=== PATIENT | female | born 1945 | race Caucasian/White ===

== ENCOUNTER 2021-06-28 20:24 | Emergency (ER) | payer MEDICARE, MEDICAID, SELFPAY ==
--- NOTE | ~2021-06-28 | XR_ITS ---
EXAMINATION: PORTABLE CHEST 1 VIEW CLINICAL INFORMATION: fall . COMPARISON: No recent pertinent prior studies are available for comparison. TECHNIQUE: Portable frontal view of the chest was obtained. FINDINGS: The lungs are mildly hypoexpanded with linear basilar atelectasis or consolidation at the lateral left base. No focal effusion, edema, or pneumothorax. Cardiac and mediastinal silhouettes are within normal limits for technique. No acute bony abnormality seen. Degenerative changes in the spine and shoulders. XR/XR chest 1V IMPRESSION: Linear markings at the left lung base more likely due to atelectasis. Early infiltrate considered less likely.
--- NOTE | ~2021-06-28 | CT_ITS ---
EXAMINATION: CT OF THE HEAD AND CERVICAL SPINE WITHOUT CONTRAST CLINICAL INFORMATION: fall, head trauma . COMPARISON: None. TECHNIQUE: Contiguous axial imaging was performed from the skull base to vertex. Soft tissue and bony algorithms were evaluated. Coronal reformatted images were obtained on the technologist's workstation. Following this, multiple serial thin slice helical CT scan images through the cervical spine were obtained. Soft tissue and bony algorithms were evaluated. Coronal and sagittal reformatted images were obtained on the technologist workstation. This CT examination was performed using dose optimization techniques as appropriate, variously including the following: *Automated exposure control *Adjustment of mA and/or kV according to patient size (this includes techniques or standardized protocols for targeted exams where dose is matched to indication/reason for exam; i.e. extremities or head) *Use of iterative reconstruction technique DLP: 1788 mGy cm FINDINGS: Head CT: Images are degraded by motion artifact. The study was repeated and again was degraded by motion artifact. Despite these limitations, the ventricles are normal in size and symmetry. There is no evidence of acute intracranial hemorrhage or acute territorial infarction. Decreased attenuation in the bilateral basal ganglia may represent sequela of small vessel disease or more chronic infarcts. Mild periventricular white matter changes are seen elsewhere. No abnormal mass-effect or midline shift is seen. Bianchi to white matter differentiation is otherwise well preserved. No extra-axial fluid collections are identified. There is no abnormal attenuation within the brain parenchyma. The osseous structures and soft tissues are normal. There is chronic cortical thickening around the maxillary sinuses which both demonstrate air-fluid levels as well as mucosal sinus thickening. Milder mucosal sinus disease seen within the visualized ethmoid air cells and frontal sinuses consistent with sequela of chronic sinus disease. Cervical spine CT: Images of the cervical spine were also degraded by patient motion obscuring fine detail. No prevertebral soft tissue swelling is appreciated. The bones are in normal anatomic alignment with no acute fracture or spondylolisthesis. Multilevel degenerative changes seen with exuberant anterior osteophyte formation. There is loss of disc height from C4 to T1. Sclerotic degenerative changes seen with the posterior elements of the cervical spine at multiple levels bilaterally. Sclerotic degenerative changes at the atlantoaxial joint. Posterior elements are otherwise grossly unremarkable. Visualized airway and lung apices are unremarkable. Visualized thyroid gland unremarkable. CT/CT cervical spine wo con IMPRESSION: Head CT: Examination is limited due to extensive patient motion despite repeating the examination. There are scattered regions of decreased attenuation within the brain parenchyma possibly representing underlying small vessel ischemic disease or sequela of prior infarctions. Acute infarcts would be difficult to assess in this setting. If there is clinical concern, MRI may be helpful however the examination is motion degraded for head CT suggesting an MRI would be extremely motion degraded at this point in time. I do not appreciate any gross hemorrhage, mass lesion, or shift of midline structures on the images that were obtained. C-spine: Also degraded by patient motion. Multilevel degenerative changes throughout the cervical spine but I do not appreciate any obvious acute fracture or spondylolisthesis.
--- NOTE | 2021-06-28 20:31 | ED.FALL ---
HPI - Fall General Chief Complaint: Fall Stated Complaint: fall Source: patient and EMS Mode of arrival: EMS Limitations: no limitations History of Present Illness HPI Narrative: 76-year-old female presents from senior care facility for a fall with head laceration. Patient in a C-collar, able to answer questions appropriately however has dementia per baseline. MD complaint: fall Onset (ago): hour(s) Fall from: standing Place fall occurred: residential[facility] Loss of consciousness: unsure Prolonged down time: no Symptoms prior to fall: none Context: tripped/slipped Location of injury: head and neck Severity: mild Severity scale (1-10): 3 Quality: dull and aching Associated symptoms (after fall): denies Related Data Allergies Allergy/AdvReac Type Severity Reaction Status Date / Time No Known Allergies Allergy Verified 06/28/21 20:32 Review of Systems Review of Systems: Constitutional: No Fever, No Chills ENT/Mouth: No Ear Pain, No Hoarseness, No sore throat Eyes: No Eye Pain, No Swelling, No Redness, No Foreign Body Cardiovascular: No Chest Pain, No SOB Respiratory: No Cough, No Dyspnea Gastrointestinal: No Nausea, No Vomiting, No Diarrhea, No abdominal Pain Genitourinary: No Dysuria, No Hematuria Musculoskeletal: positive scalp pain, No Myalgias, No Joint Swelling Skin: Positive scalp laceration, No rash Neuro: No Weakness, No Numbness, No Paresthesias, No Loss of Consciousness, No Dizziness, No Headache Psych: No Anxiety/Panic, No Depression Heme/Lymph: no easy bruising, no Lymphadenopathy Endocrine: No Polyuria, No Polydipsia Yes all other systems are reviewed and are negative [facility] Past Medical History Attestation statement: The following information was validated with the patient. Source: old records reviewed Social History Social History Advance Directives: No Advance Directives Information Provided: No Physical Exam Vital Signs: Vital Signs: Last Vital Signs Temp 98.0 F 06/28/21 21:06 Pulse 104 H 06/28/21 21:06 Resp 18 06/28/21 21:06 BP 167/92 H 06/28/21 21:06 Pulse Ox 92 06/28/21 21:06 BMI result Body Mass Index 34.3 Appearance: Alert. Oriented to self situation and place. No acute distress. Eyes: Pupils equal, round and reactive to light. EOMI. Sclerae nonicteric. ENT: Pharynx normal. Moist mucous membranes. Neck: Normal inspection. Neck supple. No vertebral tenderness or step-offs noted. CVS: Normal heart rate and rhythm. Pulses normal. Respiratory: No respiratory distress. Breath sounds normal. Abdomen: Soft and nontender. Skin: 3 cm laceration to the right occiput. Skin warm and dry. Normal skin color. Normal skin turgor. Extremities: No lower extremity edema. Moves all extremities against resistance. Neuro: No motor deficit. No sensory deficit. Cranial nerves 2-12 intact. Course Course Course Narrative: 76-year-old female presents via EMS in a C-collar after fall at senior care facility. Reports scalp pain, has a 3 cm lack. Patient has significant anxiety per baseline. Will order CT scan of head and neck. Physical exam is negative, no tenderness to palpation to all joints. No vertebral tenderness or step-offs noted. No chest wall pain on palpation, no abdominal tenderness. Moves all extremities against resistance. Patient does have dementia per baseline, is able to answer questions about herself and situation. Does not know the date or the president. 21:30 CT scan of head neck are negative for acute findings requiring emergent intervention. Head CT is limited due to movement however there is not any gross hemorrhage mass lesions or midline shift. C-collar removed. Laceration to the occiput irrigated with copious amounts of normal saline. Applied 7 samira. Patient tolerated procedure well however was upset with some of the pain. Patient was easily consoled. 22:15 x-ray of the chest negative for acute findings requiring emergent intervention. EKG sinus tach, tropes are negative. Will return patient to senior care facility. MDM - Fall Differential Diagnosis Differential diagnosis: Likely fracture and concussion without loss of consciousness Medical Records Attestation: I reviewed the patient's medical records. Lab Data Attestation: I reviewed the patient's lab results. Result diagrams: 06/28/21 21:13 06/28/21 21:13 Labs: Lab Results 06/28/21 06/28/21 06/28/21 Range/Units 21:13 21:13 21:13 WBC 7.7 (4.8-10.8) X10*3/uL RBC 4.12 L (4.20-5.50) X10*6/uL Hgb 12.8 (12.0-16.0) g/dl Hct 38.6 (37.0-47.0) % MCV 93.7 (80.0-98.0) fL MCH 31.1 (27.0-33.0) pg MCHC 33.2 (31.0-35.0) g/dl RDW 12.5 (11.0-16.0) % Plt Count 186 (160-400) X10*3/uL MPV 8.9 L (9.4-12.3) fL Immature Gran % (Auto) 0.3 (0.0-0.4) % Neut % (Auto) 64.8 (45-73) % Lymph % (Auto) 23.9 (20-40) % [place] % (Auto) 8.9 (2-11) % Eos % (Auto) 1.6 (0-4) % Baso % (Auto) 0.5 (0-2) % Lymph # (Auto) 1.8 (1.2-4.9) X10*3/uL [place] # (Auto) 0.7 (0.1-1.2) X10*3/uL Eos # (Auto) 0.1 (0.0-0.4) X10*3/uL Baso # (Auto) 0.0 (0.0-0.2) X10*3/uL Abs Immat Gran (auto) 0.02 (0.00-0.03) X10*3/uL Absolute Neuts (auto) 5.0 (2.0-8.3) x10*3/uL Absolute Nucleated RBC 0.000 (0.0-0.012) X10*3/uL Nucleated RBC % (auto) 0.0 (0.0-0.2) /100WBC Sodium 129 L (135-145) mmol/L Potassium 4.6 (3.3-5.1) mmol/L Chloride 98 (96-108) mmol/L Carbon Dioxide 22 (22-29) mmol/L Anion Gap 14 (12-20) BUN 19 H (9-16) mg/dL Creatinine 0.99 (0.5-1.4) mg/dL Estim Creat Clear Calc 44.6 Estimated GFR 55 Random Glucose 112 (60-115) mg/dL Calcium 8.3 L (8.4-10.2) mg/dL Troponin I High Sens < 3.5 (<3.5-17.0) ng/L Imaging Data CT head neck: Attestation: I personally reviewed and interpreted this imaging study as follows: Radiologist's impression: EXAMINATION: CT OF THE HEAD AND CERVICAL SPINE WITHOUT CONTRAST CLINICAL INFORMATION: fall, head trauma . COMPARISON: None. TECHNIQUE: Contiguous axial imaging was performed from the skull base to vertex. Soft tissue and bony algorithms were evaluated. Coronal reformatted images were obtained on the technologist's workstation. Following this, multiple serial thin slice helical CT scan images through the cervical spine were obtained. Soft tissue and bony algorithms were evaluated. Coronal and sagittal reformatted images were obtained on the technologist workstation. This CT examination was performed using dose optimization techniques as appropriate, variously including the following: *Automated exposure control *Adjustment of mA and/or kV according to patient size (this includes techniques or standardized protocols for targeted exams where dose is matched to indication/reason for exam; i.e. extremities or head) *Use of iterative reconstruction technique DLP: 1788 mGy cm FINDINGS: Head CT: Images are degraded by motion artifact. The study was repeated and again was degraded by motion artifact. Despite these limitations, the ventricles are normal in size and symmetry. There is no evidence of acute intracranial hemorrhage or acute territorial infarction. Decreased attenuation in the bilateral basal ganglia may represent sequela of small vessel disease or more chronic infarcts. Mild periventricular white matter changes are seen elsewhere. No abnormal mass-effect or midline shift is seen. Bianchi to white matter differentiation is otherwise well preserved. No extra-axial fluid collections are identified. There is no abnormal attenuation within the brain parenchyma. The osseous structures and soft tissues are normal. There is chronic cortical thickening around the maxillary sinuses which both demonstrate air-fluid levels as well as mucosal sinus thickening. Milder mucosal sinus disease seen within the visualized ethmoid air cells and frontal sinuses consistent with sequela of chronic sinus disease. Cervical spine CT: Images of the cervical spine were also degraded by patient motion obscuring fine detail. No prevertebral soft tissue swelling is appreciated. The bones are in normal anatomic alignment with no acute fracture or spondylolisthesis. Multilevel degenerative changes seen with exuberant anterior osteophyte formation. There is loss of disc height from C4 to T1. Sclerotic degenerative changes seen with the posterior elements of the cervical spine at multiple levels bilaterally. Sclerotic degenerative changes at the atlantoaxial joint. Posterior elements are otherwise grossly unremarkable. Visualized airway and lung apices are unremarkable. Visualized thyroid gland unremarkable. ? CT/CT cervical spine wo con IMPRESSION: Head CT: Examination is limited due to extensive patient motion despite repeating the examination. There are scattered regions of decreased attenuation within the brain parenchyma possibly representing underlying small vessel ischemic disease or sequela of prior infarctions. Acute infarcts would be difficult to assess in this setting. If there is clinical concern, MRI may be helpful however the examination is motion degraded for head CT suggesting an MRI would be extremely motion degraded at this point in time. I do not appreciate any gross hemorrhage, mass lesion, or shift of midline structures on the images that were obtained. ? C-spine: Also degraded by patient motion. Multilevel degenerative changes throughout the cervical spine but I do not appreciate any obvious acute fracture or spondylolisthesis. Chest x-ray: Attestation: I personally reviewed and interpreted this imaging study as follows: Radiologist's impression: EXAMINATION: PORTABLE CHEST 1 VIEW CLINICAL INFORMATION: fall . COMPARISON: No recent pertinent prior studies are available for comparison. TECHNIQUE: Portable frontal view of the chest was obtained. FINDINGS: The lungs are mildly hypoexpanded with linear basilar atelectasis or consolidation at the lateral left base. No focal? effusion, edema, or pneumothorax. Cardiac and mediastinal silhouettes are within normal limits for technique. No acute bony abnormality seen. Degenerative changes in the spine and shoulders. XR/XR chest 1V IMPRESSION: Linear markings at the left lung base more likely due to atelectasis. Early infiltrate considered less likely. ? ECG Data Attestation: I personally reviewed and interpreted this ECG as follows: ECG interpretation date: 06/28/21 ECG interpretation time: 20:51 Prior ECG tracings: available for review Interpretation: Vent. rate 107 BPM CO interval 124 ms QRS duration 76 ms QT/QTc 324/432 ms P-R-T axes 70 58 75 Sinus tachycardia Otherwise normal ECG No previous ECGs available 28-JUN-2021 20:51:14 Discharge Plan Discharge Clinical Impression: Fall, Concussion, Laceration of scalp Patient Disposition: Home, Self-Care Instructions: Laceration (ED), Concussion (ED), Post Concussion Syndrome (ED) Additional Instructions: You were evaluated for injury sustained from a fall. CT scan of head and neck are negative for acute findings requiring emergent intervention. Chest x-ray is negative. We updated her Tdap vaccine today. We placed 7 samira to the laceration on the back of her head. Please return or have a medical professional remove the samira in 10 days. Thank you for choosing this emergency department for evaluation. Please follow-up with primary care physician as needed. Return to the emergency department for any new, concerning, or worsening symptoms. Interventions: ED Discharge Assessment Last Done: 06/29/21 00:17 Discharge Date/Time: 06/29/21 00:20
[2021-06-28 20:33] VITALS: BP 160/80; BP 163/101; PULSE 111; PULSE 125; RESP 18; TEMP 36.6; O2SAT 95; O2SAT 98; BMI 34.3
--- NOTE | 2021-06-28 20:34 | ECG_ITS ---
Test Reason : fall Blood Pressure : / mmHG Vent. Rate : 107 BPM Atrial Rate : 107 BPM P-R Int : 124 ms QRS Dur : 076 ms QT Int : 324 ms P-R-T Axes : 070 058 075 degrees QTc Int : 432 ms Sinus tachycardia Otherwise normal ECG No previous ECGs available Referred By: Sparkle Britt Electronically Signed By:RAMON WHITE
[2021-06-28 21:06] VITALS: BP 167/92; PULSE 104; RESP 18; TEMP 36.7; O2SAT 92
[2021-06-28 21:18] LABS: MANUAL DIFF FLAG NO
[2021-06-28 21:20] LABS: Basophils Percent Auto 0.5 % (0-2); Eosinophils Absolute Auto 0.1 X10*3/uL (0.0-0.4); Eosinophils Percent Auto 1.6 % (0-4); Hematocrit 38.6 % (37.0-47.0); Hemoglobin 12.8 g/dl (12.0-16.0); Imm Gran Abs Auto 0.02 X10*3/uL (0.00-0.03); Imm Gran Pct Auto 0.3 % (0.0-0.4); Lymphocytes Absolute Auto 1.8 X10*3/uL (1.2-4.9); Lymphocytes Percent Auto 23.9 % (20-40); Mean Corpuscular HGB Conc 33.2 g/dl (31.0-35.0); Mean Corpuscular Hemoglobin 31.1 pg (27.0-33.0); Mean Corpuscular Volume 93.7 fL (80.0-98.0); Mean Platelet Volume 8.9 fL (9.4-12.3); Monocytes Absolute Auto 0.7 X10*3/uL (0.1-1.2); Monocytes Percent Auto 8.9 % (2-11); Neutrophils Percent Auto 64.8 % (45-73); Platelet Count 186 X10*3/uL (160-400); Red Blood Count 4.12 X10*6/uL (4.20-5.50); Red Cell Distribution Width 12.5 % (11.0-16.0); White Blood Count 7.7 X10*3/uL (4.8-10.8)
[2021-06-28 21:36] LABS: Anion Gap 14 (12-20); Blood Urea Nitrogen 19 mg/dL (9-16); Calcium 8.3 mg/dL (8.4-10.2); Carbon Dioxide 22 mmol/L (22-29); Chloride 98 mmol/L (96-108); Creatinine Clr Calc Pharmacy 44.6; Estimated Glomerular Filt Rate 55; Glucose Random 112 mg/dL (60-115); Potassium 4.6 mmol/L (3.3-5.1); Sodium 129 mmol/L (135-145)
[2021-06-28 21:40] LABS: Troponin-I High Sensitivity < 3.5 ng/L (<3.5-17.0)
[2021-06-28] MEDS: Diphth,Pertus(ACell),Tet Adult 0.5 ML SYRINGE IM (22:47)
--- NOTE | 2021-06-28 22:57 | PC.NURSE ---
medicated per mar and pt Sebas radhika notified.
== END 2021-06-29 00:20 | disposition home or self-care (01) ==
PROVIDERS: Nurse Practitioner Family; Emergency Provider Emergency Medicine Emergency Medical Services; PCP Family Medicine
DX: S01.01XA Laceration without foreign body of scalp, initial encounter (principal); S06.0X0A Concussion without loss of consciousness, initial encounter; G44.309 Post-traumatic headache, unspecified, not intractable; M54.2 Cervicalgia; F03.90 Unspecified dementia, unspecified severity, without behavioral disturbance, psychotic disturbance, mood disturbance, and anxiety; W01.0XXA Fall on same level from slipping, tripping and stumbling without subsequent striking against object, initial encounter; Y93.9 Activity, unspecified; Y92.129 Unspecified place in nursing home as the place of occurrence of the external cause; Y99.9 Unspecified external cause status; Z79.899 Other long term (current) drug therapy
CPT/HCPCS: 12001; 36415; 70450; 71045; 72125; 80048; 84484; 85025; 90471; 90715; 93005; 99283

== ENCOUNTER 2022-03-31 14:48 | Observation (INO) | payer MEDICARE, MEDICAID, SELFPAY ==
--- NOTE | ~2022-03-31 | CT_ITS ---
EXAMINATION: CT ANGIOGRAM OF THE HEAD CT ANGIOGRAM OF THE NECK CLINICAL INFORMATION: Slurred speech. COMPARISON: CT scan of the head earlier at 03/31/2022. X-rays of the chest 03/31/2022 and 06/28/2021. TECHNIQUE: Test bolus series followed by intravenous administration 70 mL of Omnipaque 350. Helical imaging was performed in the axial plane from the mediastinum to the skull vertex. A delayed post contrast CT scan of the head was obtained. The degree of stenosis is based off NASCET criteria. The data was processed at the sand technologist workstation for generation of MIP images. Three-dimensional volume rendered reformatted images were also generated at an offline 3-D workstation. This CT examination was performed using dose optimization techniques as appropriate, variously including the following: *Automated exposure control *Adjustment of mA and/or kV according to patient size (this includes techniques or standardized protocols for targeted exams where dose is matched to indication/reason for exam; i.e. extremities or head) *Use of iterative reconstruction technique DLP: 1481 mGy-cm. FINDINGS: CT Head: There is no evidence of acute intracranial hemorrhage or territorial infarction. No abnormal mass-effect or midline shift is seen. Bianchi to white matter differentiation is well preserved. No extra-axial fluid collections are identified. There is no abnormal parenchymal enhancement. There is mild commensurate prominence of the ventricles and sulci consistent with diffuse volume loss. There are areas of low attenuation in the periventricular and subcortical white matter, most consistent with chronic microvascular ischemic changes, and there are chronic lacunar infarcts in the basal ganglia. There are no acute osseous findings. There is hyperostosis frontalis interna. The study redemonstrates a 0.7 cm area of increased attenuation along the falx superiorly, predominantly on the left, which was demonstrated on prior imaging (image 38/55, series 16). It may be consistent with a small meningioma. The soft tissues are unremarkable. There is pansinus mucoperiosteal thickening which is most prominent in the left maxillary and ethmoid sinuses. There is a fluid level in the right maxillary sinus, and there is marked sclerosis and thickening of the left maxillary sinus tavarez. There are sequelae of prior left-sided paranasal sinus surgery. CTA Neck: There is an aberrant right subclavian artery which runs posterior to the trachea and the esophagus. There are mild atheromatous calcifications at the origins of the subclavian arteries bilaterally. The common carotid arteries are patent bilaterally. There is no significant atheromatous calcification at the carotid bifurcations and no flow-limiting stenoses. The cervical internal carotid arteries are patent bilaterally. The origins of both vertebral arteries are well seen and appear normal. Both vertebral arteries are widely patent and demonstrate good opacification throughout their cervical course. The right vertebral artery is slightly dominant. Nonvascular: There is a 0.6 cm calcified nodule laterally in the left upper lobe. The thyroid gland has markedly heterogenous attenuation, and there is a heterogenous nodule towards the upper pole of the right lobe which measures 1.6 cm. There is no cervical lymphadenopathy. The patient is edentulous in the mandible and the maxilla; there is a small residual root with a periapical lucency in the right mid mandibular body with surrounding sclerosis. There are multilevel spondylotic and facet arthropathic changes. CTA Head: Evaluation is markedly degraded by extensive patient motion artifact involving the superolateral superolateral structures. In the anterior circulation, the distal internal carotid arteries within the neck appear normal. There are mild atheromatous calcifications of the cavernous internal carotid arteries bilaterally, but the vessels are patent. The middle and anterior cerebral arteries bilaterally demonstrate normal caliber with no evidence of focal stenosis, aneurysm or vascular malformation. There is normal arborization of the middle cerebral artery branches. The anterior communicating artery is normal. In the posterior circulation, the right vertebral artery is dominant. The left vertebral artery ends primarily in the PICA. There is slight irregular contour of the proximal intradural right vertebral artery without focal stenosis. The basilar artery appears normal. The posterior cerebral arteries have normal caliber. The venous sinuses opacify normally. CT/CT angio head neck stroke IMPRESSION: CT head and neck: 1. There are no acute bleeds or territorial infarcts. 2. There is diffuse volume loss and there are chronic microvascular ischemic changes. 3. There is an aberrant right subclavian artery. 4. There is extensive paranasal sinus disease. 5. The thyroid gland has markedly heterogenous attenuation with a 1.6 cm heterogenous nodule in the right lobe. Recommend clinical and ultrasound correlation. 6. There is an area focal calcification along the superior falx, which may be consistent with a small meningioma. 7. There is a granuloma in the left upper lobe, demonstrated on prior imaging. CTA head and neck: 1. Evaluation of the upper intracranial vascular structures is suboptimal due to severe patient motion artifact. 2. There are no significant atheromatous changes in the neck vasculature and no flow-limiting stenoses are demonstrated. 3. Intracranially there are no focal stenoses, aneurysms or vascular malformations. This critical result was discussed with Jennifer Valverde by telephone on 03/31/2022 at 4:05 PM and it was ascertained that the content and urgency of the report was understood at the time of direct communication.
--- NOTE | ~2022-03-31 | CT_ITS ---
EXAMINATION: CT HEAD WITHOUT CONTRAST (STROKE PROTOCOL) CLINICAL INFORMATION: Stroke protocol. Acute slurred speech. Expressive aphasia. COMPARISON: Noncontrast head CT 06/28/2021 TECHNIQUE: Contiguous axial imaging was performed from the skull base to vertex without intravenous administration of contrast. Additional 2-D coronal and sagittal reformatted images are generated on the CT workstation and uploaded to PACS. This CT examination was performed using dose optimization techniques as appropriate, variously including the following: *Automated exposure control *Adjustment of mA and/or kV according to patient size (this includes techniques or standardized protocols for targeted exams where dose is matched to indication/reason for exam; i.e. extremities or head) *Use of iterative reconstruction technique DLP: 650 mGy-cm FINDINGS: There is no intracranial hemorrhage, hematoma, or extra-axial fluid collection. The ventricles are normal in size. There is no hydrocephalus, edema, or mass effect. There is mild accentuation of the cortical sulci and fissures and cisterns consistent with some atrophic changes similar to prior study. Again, periventricular gliosis is present as well as some small infarcts in the bilateral external capsules similar to prior exam. There is basal ganglia calcification on the left or vascular calcification again present. Subtle increased attenuation left parasagittal vertex 0.5 cm, series 5/ and coronal image 47, is not of acute clinical significance, in retrospect present on prior exam, possibly small angioma. There is no visible acute territorial infarct or mass lesion. No focal dense vessel sign. The calvarium appears intact. There is no pneumocephalus or orbital emphysema. There is bilateral hyperostosis frontalis. Scattered mucosal thickening is again seen ethmoid air cells and circumferential mucosal thickening left maxillary sinus. There is mucosal thickening and/or fluid again noted right maxillary sinus. Mild chronic thickening maxillary sinus tavarez likely related to chronic sinus condition. The middle ears and mastoids are clear. Results called and discussed with Dr. Valverde [address]/CT head for stroke IMPRESSION: 1. No intracranial hemorrhage, hematoma, or mass effect. 2. Chronic periventricular gliosis and small bilateral external capsule lacunar infarcts similar to prior exam 06/28/2021. Probable 5 mm angioma left vertex similar to prior exam. 3. Chronic sinus mucosal thickening.
--- NOTE | ~2022-03-31 | XR_ITS ---
EXAMINATION: XR CHEST CLINICAL INFORMATION: Stroke COMPARISON: Chest x-ray 06/28/2021 TECHNIQUE: Frontal view of the chest was obtained. FINDINGS: Minimal streaky bibasilar atelectasis. Slightly indistinct left costophrenic sulcus suggesting either trace pleural effusion versus mild pleural thickening, similar to prior. No right pleural effusion. No pneumothorax. Cardiomediastinal silhouette is within normal limits. No evidence of pulmonary edema. No acute osseous injury. XR/XR chest 1V IMPRESSION: 1. Mild bibasilar atelectasis. 2. Trace left pleural effusion versus mild pleural thickening, similar to prior.
--- NOTE | 2022-03-31 14:57 | ECG_ITS ---
Test Reason : ?STROKE Blood Pressure : / mmHG Vent. Rate : 106 BPM Atrial Rate : 106 BPM P-R Int : 122 ms QRS Dur : 072 ms QT Int : 346 ms P-R-T Axes : 073 052 073 degrees QTc Int : 459 ms Sinus tachycardia Otherwise normal ECG When compared with ECG of 28-JUN-2021 20:51, No significant change was found Referred By: Jennifer Valverde Electronically Signed By:RAMON WHITE
--- NOTE | 2022-03-31 15:01 | ED.NEUROSD ---
HPI - Neuro Symptoms/Deficit General Chief Complaint: Altered Mental Status Stated Complaint: slurred speech per EMS Time Seen by Provider: 03/31/22 14:57 Source: EMS, RN notes reviewed and old records reviewed Mode of arrival: EMS Limitations: no limitations History of Present Illness HPI Narrative: 76-year-old female brought in by ambulance for a concern of stroke. Patient is a senior living resident with known history of dementia last known healthy was 23:00 last night found by the staff at the senior living this morning with slurred speech unable to express herself, otherwise no other neurological deficit. Rapid neuro screen Patient is regarding examiner but with apparent expressive aphasia answer all question with no weakness has noticed. Patient came in with MOLST form as a DNR/DNI. Reviewing patient's senior living report patient is not taking anticoagulation. Related Data Home Medications Medication Instructions Recorded Confirmed acetaminophen 325 mg tablet 650 mg PO BID 03/31/22 03/31/22 alendronate 70 mg tablet 1 tab PO TU 03/31/22 03/31/22 ascorbic acid (vitamin C) 500 mg 500 mg PO DAILY 03/31/22 03/31/22 tablet benztropine 1 mg tablet 1 tab PO DAILY 03/31/22 03/31/22 calcium carbonate 600 mg-vitamin 1 tab PO DAILY 03/31/22 03/31/22 D3 10 mcg (400 unit) tablet (Calcium 600 + D(3)) ferrous gluconate 324 mg (37.5 mg 324 mg PO DAILY 03/31/22 03/31/22 iron) tablet fluticasone 500 mcg-salmeterol 50 1 puff inhalation BID 03/31/22 03/31/22 mcg/dose blistr powdr for inhalation haloperidol 10 mg tablet 1 tab PO BEDTIME 03/31/22 03/31/22 magnesium oxide 400 mg PO BEDTIME 03/31/22 03/31/22 pantoprazole 40 mg tablet,delayed 1 tab PO BID 03/31/22 03/31/22 release polyethylene glycol 3350 17 gram 17 g PO DAILY 03/31/22 03/31/22 oral powder packet quetiapine 100 mg tablet (Seroquel) 100 mg PO BEDTIME 03/31/22 03/31/22 quetiapine 400 mg tablet 1 tab PO BEDTIME 03/31/22 03/31/22 sennosides 8.6 mg-docusate sodium 2 tab-cap PO TID@0800,1400,1800 03/31/22 03/31/22 50 mg tablet (Senna Plus) tiotropium bromide 18 mcg capsule 1 cap inhalation DAILY 03/31/22 03/31/22 with inhalation device (Spiriva with HandiHaler) trazodone 100 mg tablet 1 tab PO BEDTIME 03/31/22 03/31/22 Allergies Allergy/AdvReac Type Severity Reaction Status Date / Time No Known Allergies Allergy Verified 06/28/21 20:32 Review of Systems Review of Systems: Yes Unobtainable due to mental status [facility] Social History Social History Alcohol intake: never Smoked in Last 30 Days: No Use of substances other than those prescribed or required for medical reasons: No Advance Directives: Yes Advance Directives on File: Yes Advance Directives Date on File: 06/28/21 Physical Exam Vital Signs: Vital Signs: Last Vital Signs Temp 98.2 F 03/31/22 15:52 Pulse 105 H 03/31/22 15:52 Resp 17 03/31/22 15:52 BP 148/81 H 03/31/22 15:52 Pulse Ox 100 03/31/22 15:52 O2 Del Method 03/31/22 15:52 BMI result Body Mass Index 28.9 Vital signs have been reviewed as appeared to be correct. Blood pressure normal. Heart rate normal. Respiration rate normal. Temperature normal. Oxygen saturation normal. Appearance: No acute distress. Head: Normal external exam. Normocephalic. Atraumatic. No Carlson signs noted. No raccoon eyes noted Eyes: PERRLA. EOMI. Conjunctiva and sclera normal. Eyelids normal. ENT: TM's Normal. Pharynx normal. Uvula midline. Moist mucous membranes. No trismus noted. No drooling noted. No muffled voice noted. Neck: Normal inspection. Neck supple. FROM. No adenopathy. Thyroid Normal. No meningeal signs. No neck mass noted. CVS: Normal heart rate and rhythm. Heart sound normal. No murmurs noted. Pulses normal throughout. Respiratory: No respiratory distress. Painless inspiration. Breath sounds normal. No wheezes/rales/rhonchi noted. Chest nontender. No accessory muscle usage noted or decreased air movement noted. Abdomen: Soft and nontender. Bowel sounds normal in all 4 quadrants. No distention noted. No organomegaly noted. No visible injury noted. Back: No CVA tenderness. Full range of motion noted. Skin: Skin warm and dry. Normal skin color. Normal skin turgor. No rashes/lesions/lacerations noted. Extremities: No lower extremity edema. Extremities exhibit normal range of motion. Extremities nontender. Neuro: Patient answer all question with no, regarding examiner. Cranial nerve exam: II-XII are grossly intact No motor deficit. No sensory deficit. Reflexes normal. Course Course Course Narrative: 1. Slurred speech likely cerebral stroke unknown onset of symptoms therefore patient is not a candidate for IV thrombolysis, will administer p.o. aspirin in the ED. 2. Moderate hyperkalemia with no EKG changes, hemodynamically stable will recheck potassium. Medications Administered Discontinued Medications Generic Name Dose Route Start Last Admin Trade Name Freq PRN Reason Stop Dose Admin Iohexol 100 ml 03/31/22 15:33 03/31/22 15:34 Iohexol 350 Mg/Ml 100 Ml Infus..Btl IV 03/31/22 15:34 70 ml ONCE ONE Administration Medical Decision Making Differential Diagnosis Differential Diagnoses: The differential diagnosis associated with the presentation includes (Slurred speech/CVA/metabolic encephalopathy/progressive dementia) Admission/Observation Consideration of admission/observation: Escalation of care including admission/observation considered Consult Healthcare Provider Management of the patient was discussed with: Hospitalist (Omari) Lab Data MDM Lab Attestation statement: I reviewed the patient's lab results. Result Diagrams: 03/31/22 16:16 03/31/22 16:16 Labs: Lab Results 03/31/22 03/31/22 03/31/22 Range/Units 15:32 15:33 16:16 WBC 5.7 (4.8-10.8) X10*3/uL RBC 4.66 (4.20-5.50) X10*6/uL Hgb 14.2 (12.0-16.0) g/dl Hct 43.2 (37.0-47.0) % MCV 92.7 (80.0-98.0) fL MCH 30.5 (27.0-33.0) pg MCHC 32.9 (31.0-35.0) g/dl RDW 12.1 (11.0-16.0) % Plt Count 266 D (160-400) X10*3/uL MPV 8.7 L (9.4-12.3) fL Immature Gran % (Auto) 0.3 (0.0-0.4) % Neut % (Auto) 49.6 (45-73) % Lymph % (Auto) 33.9 (20-40) % [place] % (Auto) 12.6 H (2-11) % Eos % (Auto) 2.4 (0-4) % Baso % (Auto) 1.2 (0-2) % Lymph # (Auto) 1.9 (1.2-4.9) X10*3/uL [place] # (Auto) 0.7 (0.1-1.2) X10*3/uL Eos # (Auto) 0.1 (0.0-0.4) X10*3/uL Baso # (Auto) 0.1 (0.0-0.2) X10*3/uL Abs Immat Gran (auto) 0.02 (0.00-0.03) X10*3/uL Absolute Neuts (auto) 2.8 (2.0-8.3) x10*3/uL Absolute Nucleated RBC 0.000 (0.0-0.012) X10*3/uL Nucleated RBC % (auto) 0.0 (0.0-0.2) /100WBC PT (10.0-13.1) SEC Whole Blood PT 11.6 (11.1-13.5) sec INR (0.9-1.1) Whole Blood INR 1.0 (0.9-1.1) APTT (26.0-36.4) SEC Sodium (135-145) mmol/L Potassium (3.3-5.1) mmol/L Chloride (96-108) mmol/L Carbon Dioxide (22-29) mmol/L Anion Gap (12-20) BUN (9-16) mg/dL Creatinine (0.5-1.4) mg/dL Estim Creat Clear Calc Estimated GFR POC Glucose 93 (60-115) mg/dL Random Glucose (60-115) mg/dL Calcium (8.4-10.2) mg/dL Total Creatine Kinase (26-140) U/L Troponin I High Sens (<3.5-17.0) ng/L 03/31/22 03/31/22 03/31/22 Range/Units 16:16 16:16 16:16 WBC (4.8-10.8) X10*3/uL RBC (4.20-5.50) X10*6/uL Hgb (12.0-16.0) g/dl Hct (37.0-47.0) % MCV (80.0-98.0) fL MCH (27.0-33.0) pg MCHC (31.0-35.0) g/dl RDW (11.0-16.0) % Plt Count (160-400) X10*3/uL MPV (9.4-12.3) fL Immature Gran % (Auto) (0.0-0.4) % Neut % (Auto) (45-73) % Lymph % (Auto) (20-40) % [place] % (Auto) (2-11) % Eos % (Auto) (0-4) % Baso % (Auto) (0-2) % Lymph # (Auto) (1.2-4.9) X10*3/uL [place] # (Auto) (0.1-1.2) X10*3/uL Eos # (Auto) (0.0-0.4) X10*3/uL Baso # (Auto) (0.0-0.2) X10*3/uL Abs Immat Gran (auto) (0.00-0.03) X10*3/uL Absolute Neuts (auto) (2.0-8.3) x10*3/uL Absolute Nucleated RBC (0.0-0.012) X10*3/uL Nucleated RBC % (auto) (0.0-0.2) /100WBC PT 10.6 (10.0-13.1) SEC Whole Blood PT (11.1-13.5) sec INR 0.9 (0.9-1.1) Whole Blood INR (0.9-1.1) APTT 31.2 (26.0-36.4) SEC Sodium 134 L (135-145) mmol/L Potassium 5.6 H D (3.3-5.1) mmol/L Chloride 97 (96-108) mmol/L Carbon Dioxide 28 (22-29) mmol/L Anion Gap 15 (12-20) BUN 13 (9-16) mg/dL Creatinine 0.85 (0.5-1.4) mg/dL Estim Creat Clear Calc 53.8 Estimated GFR > 60 POC Glucose (60-115) mg/dL Random Glucose 94 (60-115) mg/dL Calcium 9.4 D (8.4-10.2) mg/dL Total Creatine Kinase 24 L (26-140) U/L Troponin I High Sens 16.2 D (<3.5-17.0) ng/L Independent Interpretation I performed an independent interpretation of an: EKG (Sinus tachycardia 106 beats per minute, normal intervals, no ST-T changes.), Plain X-Ray (No acute intrathoracic pathology.) and CT Scan (No acute intracranial pathology.) Radiology Impression Discussion of test interpretation with radiology: I have reviewed the radiologist's reading. Independent Historian Clinical information obtained from an independent historian. History obtained from or confirmed by: EMS Patient baseline with dementia. NIH Stroke Scale Internal: Initial- Upon Arrival Level of Consciousness: Alert Level of Consciousness Questions: Answers neither question correctly Level of Consciousness Commands: Performs neither task correctly Best Gaze: Normal Visual: No visual loss Facial Palsy: Normal Motor Arm (Right): No drift Motor Arm (Left): No drift Motor Leg (Right): No drift Motor Leg (Left): No drift Limb Ataxia: Absent Sensory: Normal Best Language: Severe aphasia Dysarthia: Normal Extinction and Inattention: No abnormality Score: 6 Critical Care Time Critical Care Time Critical Care Time: Yes Total Critical Care Time: 60 Attestation: I spent 60 minutes providing critical care service to the patient, this including time spent at the bedside to evaluate the patient, reassess the patient, monitoring vital signs, review labs, and radiographic studies, counseling the patient/family, discussing the case with consultants, disposition the patient. Discharge Plan Discharge Clinical Impression: Acute CVA (cerebrovascular accident), Acute hyperkalemia Patient Disposition: Admitted As Inpatient Prescriptions: No Action acetaminophen 325 mg Tablet 650 mg PO BID polyethylene glycol 3350 17 gram Powder In Packet 17 g PO DAILY alendronate 70 mg tablet 1 tab PO TU sennosides-docusate sodium [Senna Plus] 8.6-50 mg Tablet 2 tab-cap PO TID@0800,1400,1800 quetiapine [Seroquel] 100 mg Tablet 100 mg PO BEDTIME ascorbic acid (vitamin C) 500 mg Tablet 500 mg PO DAILY trazodone 100 mg tablet 1 tab PO BEDTIME pantoprazole 40 mg tablet,delayed release (DR/EC) 1 tab PO BID fluticasone propion-salmeterol 500-50 mcg/dose blister with device 1 puff inhalation BID haloperidol 10 mg tablet 1 tab PO BEDTIME benztropine 1 mg tablet 1 tab PO DAILY Spiriva with HandiHaler 18 mcg capsule, w/inhalation device 1 cap inhalation DAILY quetiapine 400 mg tablet 1 tab PO BEDTIME calcium carbonate-vitamin D3 [Calcium 600 + D(3)] 600 mg-10 mcg (400 unit) Tablet 1 tab PO DAILY ferrous gluconate 324 mg (37.5 mg iron) Tablet 324 mg PO DAILY magnesium oxide 400 mg magnesium Tablet 400 mg PO BEDTIME
--- NOTE | 2022-03-31 15:22 | PHA.MEDREC ---
Pharmacy Consult ? Medication Reconciliation Pharmacy has completed the medication reconciliation.
[2022-03-31] MEDS: iohexoL 350 MG/ML 100 ML INFUS..BTL IV (15:34)
[2022-03-31 15:46] LABS: Prothrombin Time Whole Bld POC 11.6 sec (11.1-13.5)
[2022-03-31 15:47] LABS: Glucose, Whole Blood 93 mg/dL (60-115)
[2022-03-31 15:48] VITALS: BP 103/65; BP 144/5; PULSE 105; PULSE 108; RESP 21; TEMP 36.8; O2SAT 100; O2SAT 98; BMI 28.9
[2022-03-31 15:52] VITALS: BP 148/81; PULSE 105; RESP 17; TEMP 36.8; O2SAT 100
--- NOTE | 2022-03-31 15:54 | PC.NURSE ---
pt brought in by ambulance, with increasng altered mental status. EMS did not call stroke alert. 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 Pt has baseline dysphaiga
[2022-03-31 16:24] LABS: MANUAL DIFF FLAG NO
[2022-03-31 16:26] LABS: Basophils Absolute Auto 0.1 X10*3/uL (0.0-0.2); Basophils Percent Auto 1.2 % (0-2); Eosinophils Absolute Auto 0.1 X10*3/uL (0.0-0.4); Eosinophils Percent Auto 2.4 % (0-4); Hematocrit 43.2 % (37.0-47.0); Hemoglobin 14.2 g/dl (12.0-16.0); Imm Gran Abs Auto 0.02 X10*3/uL (0.00-0.03); Imm Gran Pct Auto 0.3 % (0.0-0.4); Lymphocytes Absolute Auto 1.9 X10*3/uL (1.2-4.9); Lymphocytes Percent Auto 33.9 % (20-40); Mean Corpuscular HGB Conc 32.9 g/dl (31.0-35.0); Mean Corpuscular Hemoglobin 30.5 pg (27.0-33.0); Mean Corpuscular Volume 92.7 fL (80.0-98.0); Mean Platelet Volume 8.7 fL (9.4-12.3); Monocytes Absolute Auto 0.7 X10*3/uL (0.1-1.2); Monocytes Percent Auto 12.6 % (2-11); Neutrophils Absolute Auto 2.8 x10*3/uL (2.0-8.3); Neutrophils Percent Auto 49.6 % (45-73); Platelet Count 266 X10*3/uL (160-400); Red Blood Count 4.66 X10*6/uL (4.20-5.50); Red Cell Distribution Width 12.1 % (11.0-16.0); White Blood Count 5.7 X10*3/uL (4.8-10.8)
[2022-03-31 16:32] LABS: INTERNATIONAL NORM RATIO 0.9 (0.9-1.1); Prothrombin Time 10.6 SEC (10.0-13.1)
[2022-03-31 16:34] LABS: Partial Thromboplastin Time 31.2 SEC (26.0-36.4)
[2022-03-31 16:35] LABS: Stroke Lab Use COMPLETE
[2022-03-31 16:45] LABS: Anion Gap 15 (12-20); Blood Urea Nitrogen 13 mg/dL (9-16); Calcium 9.4 mg/dL (8.4-10.2); Carbon Dioxide 28 mmol/L (22-29); Chloride 97 mmol/L (96-108); Creatinine Clr Calc Pharmacy 53.8; Estimated Glomerular Filt Rate > 60; Glucose Random 94 mg/dL (60-115); Potassium 5.6 mmol/L (3.3-5.1); Sodium 134 mmol/L (135-145)
[2022-03-31 16:51] LABS: Troponin-I High Sensitivity 16.2 ng/L (<3.5-17.0)
[2022-03-31 17:06] LABS: Influenza A PCR NEGATIVE (Negative); Influenza B PCR NEGATIVE (Negative); Resp Syncy Virus RNA Qual PCR NEGATIVE (Negative); SARS COV2 PCR INHOUSE NEGATIVE (Negative)
[2022-03-31] MEDS: Aspirin 81 MG TAB.CHEW PO (17:44)
--- NOTE | 2022-03-31 18:21 | PM.IMHP ---
History of Present Illness Date of Service: 03/31/22 Attending physician on admission: Niecy Salcido Chief Complaint: Worsening baseline dysphasia 76-year-old female patient resident of [facility] with past medical history significant for schizophrenia, schizoaffective disorder primary hypertension, GERD, weakness, age related osteoporosis and history myocardial infarction with baseline dysphasia was sent to [facility] due to change in speech, patient is unable to provide meaningful history most of the history is obtained by EMS record and by ED physician according to nursing facility patient was at her baseline last night at 23:00 when night rounds were done, at baseline patient is able to answer questions appropriately 2-3 word sentences but was noted to have hard time finding words patient did not complain of chest pain, shortness of breath denied head neck or back pain there was no history of fall or injury patient was transported to [facility] in the ER patient had normal neurological examination except that she had dysphasia, a CT head and a CTA head and neck in the ED showed no occlusion, ED physician was concerned about acute CVA left patient got admitted for close neurological follow-up Review of Systems Review of Systems: Unable to obtain review of system due to speech impairment. PMFSH Pertinent family history: Unable to obtain due to speech impairment Social History Household Members: Unknown / Unable to assess Housing: Unknown / Unable to assess Unable to assess alcohol history related to: Unknown Alcohol intake: never Patient Tobacco Use Status: Tobacco use Unknown Smoked in Last 30 Days: No Use of substances other than those prescribed or required for medical reasons: Unknown Advance Directives: Yes Advance Directives on File: Yes Advance Directives Date on File: 06/28/21 Patient : No : No service: No Current occupational status: retired [employer] Allergies Allergy/AdvReac Type Severity Reaction Status Date / Time No Known Allergies Allergy Verified 06/28/21 20:32 Active Medications: Current Medications Acetaminophen (Acetaminophen 325 Mg Tablet) 650 mg PO BID NADIA Acetaminophen (Acetaminophen Supp 650 Mg Supp.Rect) 650 mg MN Q6H PRN PRN Reason: Pain, Mild (Pain Scale 1-3) Albuterol Sulfate (Albuterol Sulfate 90 Mcg 8 Gm Inhaler) 2 puff INHALE RQ4H PRN PRN Reason: sob Benzonatate (Benzonatate 100 Mg Capsule) 100 mg PO TID PRN PRN Reason: Cough Enoxaparin Sodium (Enoxaparin Sodium 40 Mg/0.4 Ml Syringe) 40 mg SUBCUT Q24H NADIA Haloperidol (Haloperidol 5 Mg Tablet) 10 mg PO BEDTIME [facility] Ondansetron HCl (Ondansetron Hcl 4 Mg/2 Ml Vial) 4 mg IVPUSH Q8H PRN PRN Reason: Nausea and Vomiting Pharmacy Consult (Consult Rx Perform Med Rec) 1 each MISCELLANE ONCE PRN PRN Reason: Consult order Polyethylene Glycol (Polyethylene Glycol 3350 17 Gm Powd.Pack) 17 gm PO DAILY [facility] Quetiapine Fumarate (Quetiapine Fumarate 100 Mg Tablet) 100 mg PO BEDTIME [facility] Sodium Chloride (0.9 % Sodium Chloride Flush 3 Ml Syringe) 3 ml IVFLUSH QSHIFT [facility] Tiotropium Mooers (Tiotropium Mooers 18 Mcg Cap.W.Dev) 1 puff INHALE RDAILY [facility] Home Medications Medication Instructions Recorded Confirmed Last Taken Type acetaminophen 325 mg tablet 650 mg PO BID 03/31/22 03/31/22 Unknown History alendronate 70 mg tablet 1 tab PO TU 03/31/22 03/31/22 Unknown History ascorbic acid (vitamin C) 500 mg 500 mg PO DAILY 03/31/22 03/31/22 Unknown History tablet benztropine 1 mg tablet 1 tab PO DAILY 03/31/22 03/31/22 Unknown History calcium carbonate 600 mg-vitamin 1 tab PO DAILY 03/31/22 03/31/22 Unknown History D3 10 mcg (400 unit) tablet (Calcium 600 + D(3)) ferrous gluconate 324 mg (37.5 mg 324 mg PO DAILY 03/31/22 03/31/22 Unknown History iron) tablet fluticasone 500 mcg-salmeterol 50 1 puff inhalation BID 03/31/22 03/31/22 Unknown History mcg/dose blistr powdr for inhalation haloperidol 10 mg tablet 1 tab PO BEDTIME 03/31/22 03/31/22 Unknown History magnesium oxide 400 mg PO BEDTIME 03/31/22 03/31/22 Unknown History pantoprazole 40 mg tablet,delayed 1 tab PO BID 03/31/22 03/31/22 Unknown History release polyethylene glycol 3350 17 gram 17 g PO DAILY 03/31/22 03/31/22 Unknown History oral powder packet quetiapine 100 mg tablet (Seroquel) 100 mg PO BEDTIME 03/31/22 03/31/22 Unknown History quetiapine 400 mg tablet 1 tab PO BEDTIME 03/31/22 03/31/22 Unknown History sennosides 8.6 mg-docusate sodium 2 tab-cap PO TID@0800,1400,1800 03/31/22 03/31/22 Unknown History 50 mg tablet (Senna Plus) tiotropium bromide 18 mcg capsule 1 cap inhalation DAILY 03/31/22 03/31/22 Unknown History with inhalation device (Spiriva with HandiHaler) trazodone 100 mg tablet 1 tab PO BEDTIME 03/31/22 03/31/22 Unknown History Physical Exam Vital Signs and Narrative: Vital Signs: Last Vital Signs Temp 98.2 F 03/31/22 15:52 Pulse 105 H 03/31/22 15:52 Resp 17 03/31/22 15:52 BP 148/81 H 03/31/22 15:52 Pulse Ox 100 03/31/22 15:52 O2 Del Method 03/31/22 15:52 BMI result Body Mass Index 28.9 Const: Other: General well-developed female, sitting comfortably, in no acute distress. Anicteric sclera, pupil equal round reactive to light and accommodation extraocular muscles intact Neck supple no JVD. CVS regular rate rhythm, Respiratory lungs clear to auscultation, no respiratory distress, no wheeze, no rhonchi. Gastrointestinal abdomen soft, nontender, bowel sounds audible, no guarding , no rigidity. Extremities no edema. Neuro nonfocal patient moving all 4 extremity , face symmetrical, normal motor tone upper and lower extremity, no pronator drift ,speech at times 1-2 words are clear, otherwise stuttering, trying to talk very emotional crying right hand tremors/shakiness Skin no rash Results Labs CBC and Chem 7: 03/31/22 16:16 03/31/22 18:30 Labs: Laboratory Results - last 24 hr 03/31/22 03/31/22 03/31/22 15:32 15:33 16:15 MCV MCH MCHC RDW Plt Count MPV Immature Gran % (Auto) Neut % (Auto) Lymph % (Auto) [place] % (Auto) Eos % (Auto) Baso % (Auto) Lymph # (Auto) [place] # (Auto) Eos # (Auto) Baso # (Auto) Abs Immat Gran (auto) Absolute Neuts (auto) Absolute Nucleated RBC Nucleated RBC % (auto) PT Whole Blood PT 11.6 INR Whole Blood INR 1.0 APTT Anion Gap Estim Creat Clear Calc Estimated GFR POC Glucose 93 Random Glucose Calcium Total Creatine Kinase Troponin I High Sens Influenza Type A (PCR) NEGATIVE Influenza Type B (PCR) NEGATIVE RSV RNA Qual (PCR) NEGATIVE SARS-CoV-2 RNA (RT-PCR) NEGATIVE 03/31/22 03/31/22 03/31/22 16:16 16:16 16:16 MCV 92.7 MCH 30.5 MCHC 32.9 RDW 12.1 Plt Count 266 D MPV 8.7 L Immature Gran % (Auto) 0.3 Neut % (Auto) 49.6 Lymph % (Auto) 33.9 [place] % (Auto) 12.6 H Eos % (Auto) 2.4 Baso % (Auto) 1.2 Lymph # (Auto) 1.9 [place] # (Auto) 0.7 Eos # (Auto) 0.1 Baso # (Auto) 0.1 Abs Immat Gran (auto) 0.02 Absolute Neuts (auto) 2.8 Absolute Nucleated RBC 0.000 Nucleated RBC % (auto) 0.0 PT 10.6 Whole Blood PT INR 0.9 Whole Blood INR APTT 31.2 Anion Gap 15 Estim Creat Clear Calc 53.8 Estimated GFR > 60 POC Glucose Random Glucose 94 Calcium 9.4 D Total Creatine Kinase 24 L Troponin I High Sens Influenza Type A (PCR) Influenza Type B (PCR) RSV RNA Qual (PCR) SARS-CoV-2 RNA (RT-PCR) 03/31/22 16:16 MCV MCH MCHC RDW Plt Count MPV Immature Gran % (Auto) Neut % (Auto) Lymph % (Auto) [place] % (Auto) Eos % (Auto) Baso % (Auto) Lymph # (Auto) [place] # (Auto) Eos # (Auto) Baso # (Auto) Abs Immat Gran (auto) Absolute Neuts (auto) Absolute Nucleated RBC Nucleated RBC % (auto) PT Whole Blood PT INR Whole Blood INR APTT Anion Gap Estim Creat Clear Calc Estimated GFR POC Glucose Random Glucose Calcium Total Creatine Kinase Troponin I High Sens 16.2 D Influenza Type A (PCR) Influenza Type B (PCR) RSV RNA Qual (PCR) SARS-CoV-2 RNA (RT-PCR) Imaging Radiologist's Impressions: Impressions Head CT 03/31/22 15:08 IMPRESSION: 1. No intracranial hemorrhage, hematoma, or mass effect. 2. Chronic periventricular gliosis and small bilateral external capsule lacunar infarcts similar to prior exam 06/28/2021. Probable 5 mm angioma left vertex similar to prior exam. 3. Chronic sinus mucosal thickening. Head/Neck CTA 03/31/22 15:23 IMPRESSION: CT head and neck: 1. There are no acute bleeds or territorial infarcts. 2. There is diffuse volume loss and there are chronic microvascular ischemic changes. 3. There is an aberrant right subclavian artery. 4. There is extensive paranasal sinus disease. 5. The thyroid gland has markedly heterogenous attenuation with a 1.6 cm heterogenous nodule in the right lobe. Recommend clinical and ultrasound correlation. 6. There is an area focal calcification along the superior falx, which may be consistent with a small meningioma. 7. There is a granuloma in the left upper lobe, demonstrated on prior imaging. CTA head and neck: 1. Evaluation of the upper intracranial vascular structures is suboptimal due to severe patient motion artifact. 2. There are no significant atheromatous changes in the neck vasculature and no flow-limiting stenoses are demonstrated. 3. Intracranially there are no focal stenoses, aneurysms or vascular malformations. This critical result was discussed with Jennifer Valverde by telephone on 03/31/2022 at 4:05 PM and it was ascertained that the content and urgency of the report was understood at the time of direct communication. Chest X-Ray 03/31/22 16:02 IMPRESSION: 1. Mild bibasilar atelectasis. 2. Trace left pleural effusion versus mild pleural thickening, similar to prior. Assessment and Plan (1) Dysphasia: Status: Acute (2) Acute hyperkalemia: Status: Acute Plan 76-year-old female patient resident of long term was sent to [facility] due to worsening speech impairment with baseline history of schizophrenia/schizoaffective disorder and baseline is speech impairment on multiple antipsychotic medication was noted to have change in her speech this morning therefore sent to ER for further eval labs showed hyperkalemia otherwise unremarkable CT head and CTA head and Speech impairment chronic Dysphasia Worsening baseline speech impairment, since patient is a poor historian ,obtained information from patient's niece over the phone she is next of kin, according to her patient has baseline stuttering but she was noted to have some worsening yesterday, her speech impairment persists today family thinks speech is not at her baseline No new medications, no fevers no chills, CT head unremarkable CTA head and neck showed no occlusion, otherwise normal neuro examination Patient on multiple antipsychotic medications including Haldol 10 mg, Seroquel 500 mg at bedtime and trazodone 100 mg recommend follow-up with primary psychiatrist ? Related to antipsychotic side effect Obtain Neuro consultation Hyperkalemia Morris she had resolved Schizophrenia continue all home medication DVT prophylaxis on Lovenox subQ Code status DNR DNI Admitted under observation. Time Spent With Patient Time: Total time managing care of this patient today ____ minutes. Quality Stroke Does the patient have a stroke diagnosis?: No VTE Prior VTE?: No VTE Risk Level:: Medical - moderate - high VTE Device Contraindication: Treatment Not Indicated VTE Drug Contraindication: N/A - Med Ordered
[2022-03-31] MEDS: Enoxaparin Sodium 40 MG/0.4 ML SYRINGE SUBCUT (18:34)
[2022-03-31 18:35] VITALS: BP 142/88; PULSE 118; RESP 26; TEMP 37.1; O2SAT 97
[2022-03-31 18:53] LABS: Anion Gap 17 (12-20); Blood Urea Nitrogen 12 mg/dL (9-16); Calcium 9.1 mg/dL (8.4-10.2); Carbon Dioxide 25 mmol/L (22-29); Chloride 97 mmol/L (96-108); Creatinine Clr Calc Pharmacy 53.8; Estimated Glomerular Filt Rate > 60; Glucose Random 95 mg/dL (60-115); Potassium 4.4 mmol/L (3.3-5.1); Sodium 135 mmol/L (135-145)
[2022-03-31 19:40] VITALS: BP 145/76; PULSE 110; RESP 18; TEMP 36.8; O2SAT 97
--- NOTE | 2022-03-31 19:50 | PC.NURSE ---
Pt has been resting on stretcher since arriving. Pt denies pain at this time. Pt was able to speak to niece on the phone which made her tearful
[2022-03-31] MEDS: Acetaminophen 325 MG TABLET 650 MG PO (20:58)
[2022-03-31] MEDS: HaloperidoL 5 MG TABLET 10 MG PO (20:58)
[2022-03-31] MEDS: QUEtiapine Fumarate 100 MG TABLET PO (20:59)
[2022-03-31] MEDS: traZODone HCL 100 MG TABLET PO (20:59)
[2022-03-31] MEDS: QUEtiapine Fumarate 400 MG TABLET PO (20:59)
--- NOTE | 2022-03-31 21:04 | PC.NURSE ---
pt was able to take all night medications one at a time with water
[2022-03-31 22:20] VITALS: BP 154/81; PULSE 116; RESP 20; TEMP 36.8; O2SAT 96
--- NOTE | 2022-03-31 23:36 | PC.NURSE ---
pt changed up, purewick placed and draining appropriately
--- NOTE | 2022-04-01 00:18 | MHC.EDTECH ---
Pt soiled with stool and urine. Pt had stool all over hands and body. Pt given bed bath with rupesh care. Hands thoroughly cleaned and disinfected. Pt bed linen and hospital gown changed. Pt set up on [employer] system. Pt given warm blankets and call price placed in reach. Light dimmed and bed at lowest position
--- NOTE | 2022-04-01 01:14 | PC.NURSE ---
pt asleep, respirations are even and unlabored, midnight flush not given since pt had difficult time falling asleep
[2022-04-01 01:52] VITALS: BP 155/78; PULSE 115; RESP 17; TEMP 36.8; O2SAT 96
[2022-04-01 05:58] VITALS: BP 133/102; PULSE 100; RESP 19; TEMP 36.8; O2SAT 98
[2022-04-01 06:15] LABS: Glucose, Whole Blood 86 mg/dL (60-115)
[2022-04-01 07:00] VITALS: BP 149/77; PULSE 101; RESP 15; TEMP 36.6; O2SAT 96
[2022-04-01] MEDS: Acetaminophen 325 MG TABLET 650 MG PO (07:59)
[2022-04-01] MEDS: Sennosides/Docusate Sodium TABLET 2 TAB PO (07:59)
[2022-04-01] MEDS: polyethylene glycoL 3350 17 GM POWD.PACK PO (07:59)
[2022-04-01] MEDS: Benztropine Mesylate 1 MG TABLET PO (07:59)
[2022-04-01 08:00] VITALS: BP 149/74; PULSE 112; RESP 16; TEMP 36.2; O2SAT 93
[2022-04-01] MEDS: 0.9 % Sodium Chloride Flush 3 ML SYRINGE IVFLUSH (08:00)
--- NOTE | 2022-04-01 08:34 | PC.NURSE ---
nurse to nurse report called to [facility] KATHRYN Jimenez. routine morning medications administered. patient able to take pills 1 at a time with water. no coughing noted.
--- NOTE | 2022-04-01 09:02 | MHC.CM.PN ---
[facility] EXPLAINED VIA TELEPHONE TO [facility]/HCP AND PT HX OBTAINED. YELLOW COPY SENT VIA CERTIFIED MAIL, WHITE COPY TO CHART. PT IS A LTC RESIDENT AT [facility]. SHE REQUIRES ASSIST WITH ADLS AND PRIMARY MODE OF MOBILITY IS W/C. +HCP ON FILE +COVID VAX X4 PCP AT CENTER IS DR. MCKEON. DP: PT WILL RETURN TO [facility] VIA BLS TRANSPORT. RETURN REFERRAL SENT.
--- NOTE | 2022-04-01 10:48 | P.CNNE_ITS ---
History of Present Illness Data of Consult Service Date: 04/01/22 Primary Care Provider: Unknown Physician HPI Reason for consult: Slurred speech 76 years old woman brought from [facility] where she apparently was for ?dementia?. She was here for slurred speech. There was no other associated symptom. Apparently patient herself could not provide any history. Review of Systems Review of Systems: No recent cold or flu-like illness PMFSH Social History Social History Household Members: Unknown / Unable to assess Housing: Unknown / Unable to assess Unable to assess alcohol history related to: Unknown Alcohol intake: never Patient Tobacco Use Status: Tobacco use Unknown Smoked in Last 30 Days: No Use of substances other than those prescribed or required for medical reasons: Unknown Advance Directives: Yes Advance Directives on File: Yes Advance Directives Date on File: 06/28/21 Patient : No : No service: No Current occupational status: [employer] Allergies Allergy/AdvReac Type Severity Reaction Status Date / Time No Known Allergies Allergy Verified 06/28/21 20:32 Active Medications: Current Medications Acetaminophen (Acetaminophen 325 Mg Tablet) 650 mg PO BID [facility] Last Admin: 04/01/22 07:59 Dose: 650 mg Acetaminophen (Acetaminophen Supp 650 Mg Supp.Rect) 650 mg TX Q6H PRN PRN Reason: Pain, Mild (Pain Scale 1-3) Albuterol Sulfate (Albuterol Sulfate 90 Mcg 8 Gm Inhaler) 2 puff INHALE RQ4H PRN PRN Reason: sob Benzonatate (Benzonatate 100 Mg Capsule) 100 mg PO TID PRN PRN Reason: Cough Benztropine Mesylate (Benztropine Mesylate 1 Mg Tablet) 1 mg PO DAILY [facility] Last Admin: 04/01/22 07:59 Dose: 1 mg Enoxaparin Sodium (Enoxaparin Sodium 40 Mg/0.4 Ml Syringe) 40 mg SUBCUT Q24H [facility] Last Admin: 03/31/22 18:34 Dose: 40 mg Haloperidol (Haloperidol 5 Mg Tablet) 10 mg PO BEDTIME [facility] Last Admin: 03/31/22 20:58 Dose: 10 mg Ondansetron HCl (Ondansetron Hcl 4 Mg/2 Ml Vial) 4 mg IVPUSH Q8H PRN PRN Reason: Nausea and Vomiting Pharmacy Consult (Consult Rx Perform Med Rec) 1 each MISCELLANE ONCE PRN PRN Reason: Consult order Polyethylene Glycol (Polyethylene Glycol 3350 17 Gm Powd.Pack) 17 gm PO DAILY [facility] Last Admin: 04/01/22 07:59 Dose: 17 gm Quetiapine Fumarate (Quetiapine Fumarate 100 Mg Tablet) 100 mg PO BEDTIME [facility] Last Admin: 03/31/22 20:59 Dose: 100 mg Quetiapine Fumarate (Quetiapine Fumarate 400 Mg Tablet) 400 mg PO BEDTIME [facility] Last Admin: 03/31/22 20:59 Dose: 400 mg Senna/Docusate Sodium (Sennosides/Docusate Sodium Tablet) 2 tab PO TID@0800,1400,1800 [facility] Last Admin: 04/01/22 07:59 Dose: 2 tab Sodium Chloride (0.9 % Sodium Chloride Flush 3 Ml Syringe) 3 ml IVFLUSH QSHIFT [facility] Last Admin: 04/01/22 08:00 Dose: 3 ml Tiotropium [place] (Tiotropium [place] 18 Mcg Cap.W.Dev) 1 puff INHALE RDAILY [facility] Last Admin: 04/01/22 08:00 Dose: Not Given Trazodone HCl (Trazodone Hcl 100 Mg Tablet) 100 mg PO BEDTIME [facility] Last Admin: 03/31/22 20:59 Dose: 100 mg Home Medications Medication Instructions Recorded Confirmed Last Taken Type acetaminophen 325 mg tablet 650 mg PO BID 03/31/22 03/31/22 Unknown History alendronate 70 mg tablet 1 tab PO TU 03/31/22 03/31/22 Unknown History ascorbic acid (vitamin C) 500 mg 500 mg PO DAILY 03/31/22 03/31/22 Unknown History tablet benztropine 1 mg tablet 1 tab PO DAILY 03/31/22 03/31/22 Unknown History calcium carbonate 600 mg-vitamin 1 tab PO DAILY 03/31/22 03/31/22 Unknown History D3 10 mcg (400 unit) tablet (Calcium 600 + D(3)) ferrous gluconate 324 mg (37.5 mg 324 mg PO DAILY 03/31/22 03/31/22 Unknown History iron) tablet fluticasone 500 mcg-salmeterol 50 1 puff inhalation BID 03/31/22 03/31/22 Unknown History mcg/dose blistr powdr for inhalation haloperidol 10 mg tablet 1 tab PO BEDTIME 03/31/22 03/31/22 Unknown History magnesium oxide 400 mg PO BEDTIME 03/31/22 03/31/22 Unknown History pantoprazole 40 mg tablet,delayed 1 tab PO BID 03/31/22 03/31/22 Unknown History release polyethylene glycol 3350 17 gram 17 g PO DAILY 03/31/22 03/31/22 Unknown History oral powder packet quetiapine 100 mg tablet (Seroquel) 100 mg PO BEDTIME 03/31/22 03/31/22 Unknown History quetiapine 400 mg tablet 1 tab PO BEDTIME 03/31/22 03/31/22 Unknown History sennosides 8.6 mg-docusate sodium 2 tab-cap PO TID@0800,1400,1800 03/31/22 03/31/22 Unknown History 50 mg tablet (Senna Plus) tiotropium bromide 18 mcg capsule 1 cap inhalation DAILY 03/31/22 03/31/22 Unknown History with inhalation device (Spiriva with HandiHaler) trazodone 100 mg tablet 1 tab PO BEDTIME 03/31/22 03/31/22 Unknown History Physical Exam Vital Signs: Vital Signs: Last Vital Signs Temp 97.1 F 04/01/22 08:00 Pulse 112 H 04/01/22 08:00 Resp 16 04/01/22 08:00 BP 149/74 H 04/01/22 08:00 Pulse Ox 93 04/01/22 08:00 O2 Del Method 04/01/22 08:00 BMI result Body Mass Index 28.9 Neuro: Other: Alert and awake. Teeth were missing. Spontaneity and fluency of speech was okay. She comprehension was intact. Reputation was intact. Naming was intact. Speech was dysphasic. There was little bit of strutter. Face was symmetrical. Visual ocasio are full. Extraocular muscles were intact. There was no focal arm or leg weakness. Deep tendon reflexes were absent with flexor plantars. Results Labs CBC & Chem 7: 03/31/22 16:16 03/31/22 18:30 Labs: Short CBC 03/31/22 Range/Units 16:16 WBC 5.7 (4.8-10.8) X10*3/uL Hgb 14.2 (12.0-16.0) g/dl Hct 43.2 (37.0-47.0) % Plt Count 266 D (160-400) X10*3/uL BMP 03/31/22 03/31/22 16:16 18:30 Sodium 134 L 135 Potassium 5.6 H D 4.4 D Chloride 97 97 Carbon Dioxide 28 25 BUN 13 12 Creatinine 0.85 0.85 Calcium 9.4 D 9.1 Cardiac Enzymes 03/31/22 Range/Units 16:16 Total Creatine Kinase 24 L (26-140) U/L Noncontrast head CT did not reveal any significant abnormality. CTA similarly did not reveal any vascular lesion Assessment and Plan (1) Dysphasia: Status: Acute 76 years old woman who carried diagnosis of dementia the details were unclear. She was brought to hospital with slurred speech and not able to communicate. When I saw her her language seem to be intact and she has mild dysphagia but her teeth are missing and she probably had underlying strutter. This type of speech pattern sometime could be a side effect of antipsychotics. If she had any more transient episode of confusion, an outpatient EEG should be considered. Time Spent With Patient Time: Total time managing care of this patient today ____ minutes. Procedures Date of Service Date of Service: 04/01/22
[2022-04-01 11:17] VITALS: BP 146/91; PULSE 105; RESP 16; TEMP 36.7; O2SAT 96
--- NOTE | 2022-04-01 12:42 | MHC.CM.PN ---
DP: PT IS MEDICALLY CLEARED FOR DC BACK FOR LTC AT [facility]. RN AWARE. KAT ENCARNACION NOTIFIED. CENTER UPDATED. TRANSPORT BOOKED VIA [facility] FOR 2:30 PM.
--- NOTE | 2022-04-01 12:45 | PM.DS ---
DS: Providers Provider Date of Service: 04/01/22 Date of admission: 03/31/22 18:12 Primary care physician: Unknown Physician Consults: 03/31/22 18:20 Consult to Neurology Routine Consulting Provider: [facility] Reason for consultation: worsening of baseline stuttering Has provider been notified: No DS: Diagnosis Discharge Diagnosis (1) Dysphasia: Status: Acute (2) Acute hyperkalemia: Status: Acute DS: Summary Hospital Course Hospital Course: History of presenting illness Chief Complaint: Worsening baseline dysphasia 76-year-old female patient resident of [facility] with past medical history significant for schizophrenia, schizoaffective disorder primary hypertension, GERD, weakness, age related osteoporosis and history myocardial infarction with baseline dysphasia was sent to [facility] due to change in speech, patient is unable to provide meaningful history most of the history is obtained by EMS record and by ED physician according to nursing facility patient was at her baseline last night at 23:00 when night rounds were done, at baseline patient is able to answer questions appropriately 2-3 word sentences but was noted to have hard time finding words patient did not complain of chest pain, shortness of breath denied head neck or back pain there was no history of fall or injury patient was transported to [facility] in the ER patient had normal neurological examination except that she had dysphasia, a CT head and a CTA head and neck in the ED showed no occlusion, ED physician was concerned about acute CVA left patient got admitted for close neurological follow-up. Hospital course 76-year-old female patient resident of [facility] was sent to [facility] due to worsening speech impairment with baseline history of schizophrenia/schizoaffective disorder and baseline is speech impairment on multiple antipsychotic medication was noted to have change in her speech therefore sent to ER for further eval labs showed hyperkalemia otherwise unremarkable CT head and CTA head and Speech impairment/chronic Dysphasia Patient was sent to [facility] for further evaluation of Worsening baseline speech , patient at baseline has dysphasia , no other neurological deficit was noted in emergency room patient had a normal CT head and CTA head and neck was admitted for close neurological follow-up this morning patient is seems to be at baseline able to communicate gait with 2-3 words, seen by Neurology they recommend EEG patient noted to have confusion and also recommend to look into antipsychotic medications since patient is hemodynamically stable and seems to be at her baseline therefore she is being discharged back to rehab facility and all home medications. Hyperkalemia resolved Schizophrenia continue all home medication Time Spent with Patient Time attestation: Total time managing care of this patient today ____ minutes. Discharge coordination time: Greater than 30 minutes Quality: Safe Use of Opioids Does Pt have an Active Cancer Diagnosis on the Problem List?: No Quality: Stroke Does the patient have a stroke diagnosis?: No Physical Exam Vital Signs: Vital Signs: Last Vital Signs Temp 98.0 F 04/01/22 11:17 Pulse 105 H 04/01/22 11:17 Resp 16 04/01/22 11:17 BP 146/91 H 04/01/22 11:17 Pulse Ox 96 04/01/22 11:17 O2 Del Method 04/01/22 11:17 BMI result Body Mass Index 28.9 Const: Other: General well-developed female, sitting comfortably, in no acute distress.? Anicteric sclera, pupil equal round reactive to light and accommodation extraocular muscles intact Neck? supple no JVD. CVS? regular rate rhythm, Respiratory lungs clear to auscultation, no respiratory distress, no wheeze, no rhonchi. Gastrointestinal abdomen soft, nontender, bowel sounds audible, no guarding , no rigidity. Extremities no? edema. Neuro nonfocal moving all 4 extremity , face symmetrical, normal motor tone upper and lower extremity, no pronator drift ,speech clear 1-2 words ,right hand tremors/shakiness Skin no rash DS: Data Data Completed and Pending Labs on day of discharge: Laboratory Results - last 24 hr 03/31/22 03/31/22 03/31/22 15:32 15:33 16:15 WBC RBC Hgb Hct MCV MCH MCHC RDW Plt Count MPV Immature Gran % (Auto) Neut % (Auto) Lymph % (Auto) [place] % (Auto) Eos % (Auto) Baso % (Auto) Lymph # (Auto) [place] # (Auto) Eos # (Auto) Baso # (Auto) Abs Immat Gran (auto) Absolute Neuts (auto) Absolute Nucleated RBC Nucleated RBC % (auto) PT Whole Blood PT 11.6 INR Whole Blood INR 1.0 APTT Sodium Potassium Chloride Carbon Dioxide Anion Gap BUN Creatinine Estim Creat Clear Calc Estimated GFR POC Glucose 93 Random Glucose Calcium Total Creatine Kinase Troponin I High Sens Influenza Type A (PCR) NEGATIVE Influenza Type B (PCR) NEGATIVE RSV RNA Qual (PCR) NEGATIVE SARS-CoV-2 RNA (RT-PCR) NEGATIVE 03/31/22 03/31/22 03/31/22 16:16 16:16 16:16 WBC 5.7 RBC 4.66 Hgb 14.2 Hct 43.2 MCV 92.7 MCH 30.5 MCHC 32.9 RDW 12.1 Plt Count 266 D MPV 8.7 L Immature Gran % (Auto) 0.3 Neut % (Auto) 49.6 Lymph % (Auto) 33.9 [place] % (Auto) 12.6 H Eos % (Auto) 2.4 Baso % (Auto) 1.2 Lymph # (Auto) 1.9 [place] # (Auto) 0.7 Eos # (Auto) 0.1 Baso # (Auto) 0.1 Abs Immat Gran (auto) 0.02 Absolute Neuts (auto) 2.8 Absolute Nucleated RBC 0.000 Nucleated RBC % (auto) 0.0 PT 10.6 Whole Blood PT INR 0.9 Whole Blood INR APTT 31.2 Sodium 134 L Potassium 5.6 H D Chloride 97 Carbon Dioxide 28 Anion Gap 15 BUN 13 Creatinine 0.85 Estim Creat Clear Calc 53.8 Estimated GFR > 60 POC Glucose Random Glucose 94 Calcium 9.4 D Total Creatine Kinase 24 L Troponin I High Sens Influenza Type A (PCR) Influenza Type B (PCR) RSV RNA Qual (PCR) SARS-CoV-2 RNA (RT-PCR) 03/31/22 03/31/22 04/01/22 16:16 18:30 06:10 WBC RBC Hgb Hct MCV MCH MCHC RDW Plt Count MPV Immature Gran % (Auto) Neut % (Auto) Lymph % (Auto) [place] % (Auto) Eos % (Auto) Baso % (Auto) Lymph # (Auto) [place] # (Auto) Eos # (Auto) Baso # (Auto) Abs Immat Gran (auto) Absolute Neuts (auto) Absolute Nucleated RBC Nucleated RBC % (auto) PT Whole Blood PT INR Whole Blood INR APTT Sodium 135 Potassium 4.4 D Chloride 97 Carbon Dioxide 25 Anion Gap 17 BUN 12 Creatinine 0.85 Estim Creat Clear Calc 53.8 Estimated GFR > 60 POC Glucose 86 Random Glucose 95 Calcium 9.1 Total Creatine Kinase Troponin I High Sens 16.2 D Influenza Type A (PCR) Influenza Type B (PCR) RSV RNA Qual (PCR) SARS-CoV-2 RNA (RT-PCR) Discharge Plan Discharge Patient Disposition: Xfer SNF Discharge Diagnosis: dysphasia Referrals: Day [facility] [Outside] - 1 Day Physician,Unknown J [Primary Care Provider] - 1 Week Discharge Medications: Continued acetaminophen 325 mg Tablet 650 mg PO BID polyethylene glycol 3350 17 gram Powder In Packet 17 g PO DAILY alendronate 70 mg tablet 1 tab PO TU sennosides-docusate sodium [Senna Plus] 8.6-50 mg Tablet 2 tab-cap PO TID@0800,1400,1800 quetiapine [Seroquel] 100 mg Tablet 100 mg PO BEDTIME ascorbic acid (vitamin C) 500 mg Tablet 500 mg PO DAILY trazodone 100 mg tablet 1 tab PO BEDTIME pantoprazole 40 mg tablet,delayed release (DR/EC) 1 tab PO BID fluticasone propion-salmeterol 500-50 mcg/dose blister with device 1 puff inhalation BID haloperidol 10 mg tablet 1 tab PO BEDTIME benztropine 1 mg tablet 1 tab PO DAILY Spiriva with HandiHaler 18 mcg capsule, w/inhalation device 1 cap inhalation DAILY quetiapine 400 mg tablet 1 tab PO BEDTIME calcium carbonate-vitamin D3 [Calcium 600 + D(3)] 600 mg-10 mcg (400 unit) Tablet 1 tab PO DAILY ferrous gluconate 324 mg (37.5 mg iron) Tablet 324 mg PO DAILY magnesium oxide 400 mg magnesium Tablet 400 mg PO BEDTIME Discharge Orders: Discharge Order (Routine); Ordered 04/01/22 Ordered By: Niecy Salcido Diet: Advance to usual diet Activity on Discharge: As tolerated Stand Alone Forms: Patient Portal Discharge page Care Plan Goals: Dysphasia worsening from baseline no acute cva if symptoms reoccurs get evaluated by psychiatry for medication adjustment questions side affect of antipsychotics. If recurrent confusion consider outpatient EEG Health Concerns: Continue all home medications as before Plan of Treatment: Follow-up with primary care physician and Psychiatry Assessment: As above
== END 2022-04-01 15:20 | disposition skilled nursing facility (03) ==
LOC: HO.ED 17:15 → HO.EDOVER 19:01 → HO.IMC 04-01 07:40
PROVIDERS: Admitting Provider Hospitalist; Emergency Provider Emergency Medicine; PCP Family Medicine; Visit Provider Hospitalist
DX: R13.10 Dysphagia, unspecified (principal); E87.5 Hyperkalemia; Z20.822 Contact with and (suspected) exposure to COVID-19; I25.2 Old myocardial infarction; Z79.899 Other long term (current) drug therapy
CPT/HCPCS: 0241U; 36415; 70450; 70496; 70498; 71045; 80048; 82550; 82947; 84484; 85025; 85610; 85730; 93005; 96372; 99219; 99285; J1650; Q9967

== ENCOUNTER 2022-06-05 13:05 | Inpatient (IN) | payer MEDICARE, MEDICAID, SELFPAY ==
--- NOTE | ~2022-06-05 | XR_ITS ---
EXAMINATION: XR CHEST CLINICAL INFORMATION: Reason for Exam chest pAIN COMPARISON: Chest radiograph 03/31/2022 TECHNIQUE: One view of the chest FINDINGS: Streaky left basilar airspace opacities likely reflecting atelectasis. No pneumothorax. Similar blunting of the left costophrenic angle which may reflect pleural-parenchymal thickening or a trace pleural effusion. Normal cardiomediastinal silhouette. XR/XR chest 1V IMPRESSION: 1. Streaky left basilar airspace opacities likely reflecting atelectasis. 2. Similar blunting of the left costophrenic angle which may reflect pleural-parenchymal thickening or a trace pleural effusion.
--- NOTE | ~2022-06-05 | CT_ITS ---
EXAMINATION: CT ABDOMEN AND PELVIS WITHOUT CONTRAST CLINICAL INFORMATION: Abdominal pain COMPARISON: None TECHNIQUE: Multidetector volumetric imaging was performed from the superior aspect of the liver through the pubic symphysis. Sagittal and coronal reformatted images were obtained on the technologist's workstation. This CT examination was performed using dose optimization techniques as appropriate, variously including the following: *Automated exposure control *Adjustment of mA and/or kV according to patient size (this includes techniques or standardized protocols for targeted exams where dose is matched to indication/reason for exam; i.e. extremities or head) *Use of iterative reconstruction technique DLP: 654 mGy-cm FINDINGS: LUNG BASES: The visualized lung bases are unremarkable. Nonspecific thickening of the visualized distal esophagus. LIVER, GALLBLADDER, AND BILIARY TREE: The liver is normal in size, shape, and attenuation. No focal hepatic lesion or biliary ductal dilatation is present. The gallbladder is unremarkable with no evidence of radiopaque gallstones, gallbladder wall thickening, or obvious pericholecystic inflammatory changes. PANCREAS: Unremarkable. SPLEEN: Unremarkable. ADRENAL GLANDS: Unremarkable. KIDNEYS AND URETERS: The kidneys are normal in size, shape, and attenuation. No hydronephrosis, hydroureter, or calculi seen. No perinephric stranding. BLADDER: Unremarkable. GASTROINTESTINAL TRACT: The small and large bowel are unremarkable. The appendix is unremarkable. Contraction versus thickening gastric antrum. ABDOMINAL WALL: No significant hernia is appreciated. LYMPH NODES: Normal. VASCULAR: Unremarkable. PELVIC VISCERA: Fibroid uterus noted. OSSEOUS STRUCTURES: Advanced spondylosis throughout the lumbar spine. CT/CT abdomen pelvis wo IV con IMPRESSION: 1. Nonspecific thickening of the visualized distal esophagus. Correlate with any symptoms of esophagitis. Consider endoscopy for direct correlation to exclude an infiltrating lesion. Contracted gastric antrum versus thickening. This can also be assessed during endoscopy. 2. No acute intra-abdominal findings. Fleischner guidelines were followed.
[2022-06-05 13:18] VITALS: BP 116/90; BP 130/95; PULSE 130; PULSE 133; RESP 28; TEMP 37.7; O2SAT 96; O2SAT 97; BMI 23.6
--- NOTE | 2022-06-05 13:39 | ECG_ITS ---
Test Reason : TACHYCARDIA Blood Pressure : / mmHG Vent. Rate : 132 BPM Atrial Rate : 132 BPM P-R Int : 130 ms QRS Dur : 062 ms QT Int : 298 ms P-R-T Axes : 060 054 184 degrees QTc Int : 441 ms Sinus tachycardia Marked ST abnormality, possible inferior subendocardial injury Abnormal ECG When compared with ECG of 31-MAR-2022 15:37, ST now depressed in Inferior leads ST now depressed in Anterolateral leads T wave inversion now evident in Lateral leads Referred By: Ancelmo Ram Electronically Signed By:Yeison Piper
--- NOTE | 2022-06-05 13:49 | ED.NAVMDI ---
HPI - Nausea/Vomiting/Diarrhea General Chief complaint: GI Bleed Stated complaint: Vomiting per EMS Time Seen by Provider: 06/05/22 13:38 Source: EMS and other ([facility]) Mode of arrival: EMS Limitations: other (NO VERBAL) History of Present Illness HPI Narrative: THIS IS 77 YEARS OLD FEMALE [facility] RESIDENT NO VERBAL A BASELINE SENT FOR EVALUATION TO THE EMERGENCY DEPARTMENT BECAUSE OF NAUSEA VOMITING, ACCORDING TO IN A [facility] REPORT PATIENT HAD A COFFEE-GROUND EMESIS. MD elicited complaint: nausea and vomiting Onset (ago): day(s) (1) Location of pain: none Related Data Home Medications Medication Instructions Recorded Confirmed acetaminophen 325 mg tablet 650 mg PO BID 03/31/22 03/31/22 alendronate 70 mg tablet 1 tab PO TU 03/31/22 03/31/22 ascorbic acid (vitamin C) 500 mg 500 mg PO DAILY 03/31/22 03/31/22 tablet benztropine 1 mg tablet 1 tab PO DAILY 03/31/22 03/31/22 calcium carbonate 600 mg-vitamin 1 tab PO DAILY 03/31/22 03/31/22 D3 10 mcg (400 unit) tablet (Calcium 600 + D(3)) ferrous gluconate 324 mg (37.5 mg 324 mg PO DAILY 03/31/22 03/31/22 iron) tablet fluticasone 500 mcg-salmeterol 50 1 puff inhalation BID 03/31/22 03/31/22 mcg/dose blistr powdr for inhalation haloperidol 10 mg tablet 1 tab PO BEDTIME 03/31/22 03/31/22 magnesium oxide 400 mg PO BEDTIME 03/31/22 03/31/22 pantoprazole 40 mg tablet,delayed 1 tab PO BID 03/31/22 03/31/22 release polyethylene glycol 3350 17 gram 17 g PO DAILY 03/31/22 03/31/22 oral powder packet quetiapine 100 mg tablet (Seroquel) 100 mg PO BEDTIME 03/31/22 03/31/22 quetiapine 400 mg tablet 1 tab PO BEDTIME 03/31/22 03/31/22 sennosides 8.6 mg-docusate sodium 2 tab-cap PO TID@0800,1400,1800 03/31/22 03/31/22 50 mg tablet (Senna Plus) tiotropium bromide 18 mcg capsule 1 cap inhalation DAILY 03/31/22 03/31/22 with inhalation device (Spiriva with HandiHaler) trazodone 100 mg tablet 1 tab PO BEDTIME 03/31/22 03/31/22 Allergies Allergy/AdvReac Type Severity Reaction Status Date / Time lactulose Allergy Unknown Verified 06/05/22 13:26 orange juice Allergy Unknown Verified 06/05/22 13:26 Review of Systems Review of Systems: Yes Unobtainable due to mental condition (NON VERBAL) FOR[facility]LY [facility], [facility] Past Medical History Attestation statement: The following information was validated with the patient. [facility]LY [facility], [facility] Narrative: NO VERBAL/HISTORY OF A CVA SCHIZOPHRENIA/CORONARY ARTERY DISEASE Medical History Dysphasia Social History Social History Household Members: Unknown / Unable to assess Housing: Unknown / Unable to assess Unable to assess alcohol history related to: Unknown Alcohol intake: never Patient Tobacco Use Status: Tobacco use Unknown Smoked in Last 30 Days: No Use of substances other than those prescribed or required for medical reasons: No Advance Directives: Yes Advance Directives on File: Yes Advance Directives Date on File: 06/28/21 service: No Current occupational status: retired Physical Exam Vital Signs: Vital Signs: Last Vital Signs Temp 99.8 F 06/05/22 13:18 Pulse 133 H 06/05/22 13:18 Resp 28 H 06/05/22 13:18 BP 130/95 H 06/05/22 13:18 Pulse Ox 97 06/05/22 13:18 O2 Del Method 06/05/22 13:18 BMI result Body Mass Index 23.6 SHE LOOKS WELL SHE IS NOT TOXIC-APPEARING, SHE IS NOT IN DISTRESS Const: General: comfortable, no acute distress, well developed, alert and awake Nutritional Appearance: average body habitus HEENT: Head: Yes normal to inspection General nose exam: Normal external nose present Face and sinus: Yes normal facial exam Neck: Neck: Yes normal visual inspection, Yes full ROM and Yes no lymphadenopathy Chest: Chest palpation & inspection: normal inspection of the chest Resp: Effort & Inspection: normal respiratory effort Auscultation: clear to auscultation bilaterally Cardio: Jugular venous distension: no JVD Rate: regular rate Rhythm: regular rhythm GI: Inspection: Yes normal to inspection Palpation (GI): Soft to palpation, not firm, nontender and no guarding Auscultation: normal bowel sounds Rectal Exam - Female: other (RECTAL EXAM WAS PERFORMED BY ME PATIENT HAS A BROWN STOOLS) Skin: General skin exam: no rashes or lesions noted and elasticity normal Course Reevaluation(s) Reevaluation #1: YENNIFER SEEN INCLUDING TROPI D/W DR CHANDLER NO HEPARIN FOR NOW Time: 16:34 Medications Administered Discontinued Medications Generic Name Dose Route Start Last Admin Trade Name Freq PRN Reason Stop Dose Admin Sodium Chloride 1,000 mls @ 999 mls/hr 06/05/22 13:45 06/05/22 15:47 Ns IVCONT 06/05/22 14:45 Infused .Q1H1M NADIA Infusion Sodium Chloride 1,000 mls @ 999 mls/hr 06/05/22 14:45 06/05/22 15:47 Ns IVCONT 06/05/22 15:45 Infused .Q1H1M NADIA Infusion Ondansetron HCl 4 mg 06/05/22 13:41 06/05/22 14:48 Ondansetron Hcl 4 Mg/2 Ml Vial IVPUSH 06/05/22 13:42 4 mg ONCE ONE Administration Procedures EJ/Peripheral Line Arm R: Time Out Performed: Yes Skin Cleansed in Sterile Fashion: Yes Size (gauge): 20 IV Secured and Dressing Applied: Yes Patient Tolerated Procedure: well Additional Comments: Under US cannulated rt brachial vein good flash good blood return Medical Decision Making Medical Decision Making MDM Narrative: PATIENT PRESENTED WITH THE VOMITING COFFEE-GROUND WILL GET LABS ADMINISTER IV FLUID WILL REASSESS 4.40 pm W/U COMPLETED PICTURE CONSISTENT WITH DEHYDRATION /ACUTE RENAL FAILURE /ESOPHAGITIS/ABOVE RANGE TROPI Differential Diagnosis Differential Diagnoses: The differential diagnosis associated with the presentation includes RENAL FAILURE/SBO.DEHYDRATION Admission/Observation Consideration of admission/observation: Escalation of care including admission/observation considered Consult Healthcare Provider Management of the patient was discussed with: Sr. Merchandise Planner CART DRIVER DR CHANDLER CONSULTED Lab Data 06/05/22 14:10 06/05/22 14:10 Labs: Lab Results 06/05/22 06/05/22 06/05/22 Range/Units 14:02 14:02 14:36 WBC 18.6 H (4.8-10.8) X10*3/uL RBC 5.53 H (4.20-5.50) X10*6/uL Hgb 16.5 H (12.0-16.0) g/dl Hct 49.8 H (37.0-47.0) % MCV 90.1 (80.0-98.0) fL MCH 29.8 (27.0-33.0) pg MCHC 33.1 (31.0-35.0) g/dl RDW 13.1 (11.0-16.0) % Plt Count 342 D (160-400) X10*3/uL MPV 9.7 (9.4-12.3) fL Immature Gran % (Auto) 0.6 H (0.0-0.4) % Neut % (Auto) 84.4 H (45-73) % Lymph % (Auto) 6.5 L (20-40) % [place] % (Auto) 8.3 (2-11) % Eos % (Auto) 0.0 (0-4) % Baso % (Auto) 0.2 (0-2) % Lymph # (Auto) 1.2 (1.2-4.9) X10*3/uL [place] # (Auto) 1.5 H (0.1-1.2) X10*3/uL Eos # (Auto) 0.0 (0.0-0.4) X10*3/uL Baso # (Auto) 0.0 (0.0-0.2) X10*3/uL Abs Immat Gran (auto) 0.11 H (0.00-0.03) X10*3/uL Absolute Neuts (auto) 15.7 H (2.0-8.3) x10*3/uL Absolute Nucleated RBC 0.000 (0.0-0.012) X10*3/uL Nucleated RBC % (auto) 0.0 (0.0-0.2) /100WBC Smear Tech's Comments VERIFIED PT (10.0-13.1) SEC INR (0.9-1.1) APTT (26.0-36.4) SEC Sodium (135-145) mmol/L Potassium (3.3-5.1) mmol/L Chloride (96-108) mmol/L Carbon Dioxide (22-29) mmol/L Anion Gap (12-20) BUN (9-16) mg/dL Creatinine (0.5-1.4) mg/dL Estim Creat Clear Calc Estimated GFR Random Glucose (60-115) mg/dL Calcium (8.4-10.2) mg/dL Total Bilirubin (0.0-1.0) mg/dL AST (5-31) U/L ALT (0-31) U/L Alkaline Phosphatase (39-117) U/L Troponin I High Sens (<3.5-17.0) ng/L Total Protein (6.5-8.0) g/dL Albumin (3.5-5.0) g/dL Stool Occult Blood NEGATIVE (NEGATIVE) COVID-19 (NISA) Negative (Negative) COVID-19 Clin Com See Note 06/05/22 06/05/22 06/05/22 Range/Units 14:36 15:32 15:32 WBC (4.8-10.8) X10*3/uL RBC (4.20-5.50) X10*6/uL Hgb (12.0-16.0) g/dl Hct (37.0-47.0) % MCV (80.0-98.0) fL MCH (27.0-33.0) pg MCHC (31.0-35.0) g/dl RDW (11.0-16.0) % Plt Count (160-400) X10*3/uL MPV (9.4-12.3) fL Immature Gran % (Auto) (0.0-0.4) % Neut % (Auto) (45-73) % Lymph % (Auto) (20-40) % [place] % (Auto) (2-11) % Eos % (Auto) (0-4) % Baso % (Auto) (0-2) % Lymph # (Auto) (1.2-4.9) X10*3/uL [place] # (Auto) (0.1-1.2) X10*3/uL Eos # (Auto) (0.0-0.4) X10*3/uL Baso # (Auto) (0.0-0.2) X10*3/uL Abs Immat Gran (auto) (0.00-0.03) X10*3/uL Absolute Neuts (auto) (2.0-8.3) x10*3/uL Absolute Nucleated RBC (0.0-0.012) X10*3/uL Nucleated RBC % (auto) (0.0-0.2) /100WBC Smear Tech's Comments PT 12.7 (10.0-13.1) SEC INR 1.1 (0.9-1.1) APTT 26.2 (26.0-36.4) SEC Sodium 144 (135-145) mmol/L Potassium 4.4 (3.3-5.1) mmol/L Chloride 106 (96-108) mmol/L Carbon Dioxide 23 (22-29) mmol/L Anion Gap 19 (12-20) BUN 39 H (9-16) mg/dL Creatinine 1.57 H (0.5-1.4) mg/dL Estim Creat Clear Calc 25.6 Estimated GFR 32 Random Glucose 148 H (60-115) mg/dL Calcium 8.3 L D (8.4-10.2) mg/dL Total Bilirubin 0.5 (0.0-1.0) mg/dL AST 18 (5-31) U/L ALT 8 (0-31) U/L Alkaline Phosphatase 99 (39-117) U/L Troponin I High Sens 377.9 H* (<3.5-17.0) ng/L Total Protein 5.9 L (6.5-8.0) g/dL Albumin 3.3 L (3.5-5.0) g/dL Stool Occult Blood (NEGATIVE) COVID-19 (NISA) (Negative) COVID-19 Clin Com Independent Interpretation I performed an independent interpretation of an: EKG (SINUS TACH ST DEPRESSION LATERAL LEADS) Radiology Impression Discussion of test interpretation with radiology: I have reviewed the radiologist's reading. Radiologist Impression: BLADDER: Unremarkable.? GASTROINTESTINAL TRACT: The small and large bowel are unremarkable. The appendix is unremarkable. Contraction versus thickening gastric antrum. ABDOMINAL WALL: No significant hernia is appreciated.? LYMPH NODES: Normal. VASCULAR: Unremarkable. PELVIC VISCERA: Fibroid uterus noted.? OSSEOUS STRUCTURES: Advanced spondylosis throughout the lumbar spine.? CT/CT abdomen pelvis wo IV con IMPRESSION: 1.? Nonspecific thickening of the visualized distal esophagus. Correlate with any symptoms of esophagitis. Consider endoscopy for direct correlation to exclude an infiltrating lesion. Contracted gastric antrum versus thickening. This can also be assessed during endoscopy. 2.? No acute intra-abdominal findings. ? Fleischner guidelines were followed. Dictated By: Ed Soto Critical Care Time Critical Care Time Critical Care Time: Yes Total Critical Care Time: 60 Attestation: SPEAKING WITH ems/TACKING CARE OF THE PT.SPEAKING TO CARDIOLOGY/HOSPITALIST DR SHAFER Discharge Plan Discharge Clinical Impression: Vomiting, Acute renal failure, Leukocytosis, Troponin I above reference range, Tachycardia Patient Disposition: Admitted As Inpatient
[2022-06-05 14:27] LABS: OBS Int Ctl Valid YES; OBS1 NEGATIVE (NEGATIVE)
[2022-06-05 14:31] LABS: COVID-19 Test Negative (Negative); IDNOW Serial# 16C4AD1C
[2022-06-05 14:44] LABS: Basophils Percent Auto 0.2 % (0-2); Hematocrit 49.8 % (37.0-47.0); Hemoglobin 16.5 g/dl (12.0-16.0); Imm Gran Abs Auto 0.11 X10*3/uL (0.00-0.03); Imm Gran Pct Auto 0.6 % (0.0-0.4); Lymphocytes Absolute Auto 1.2 X10*3/uL (1.2-4.9); Lymphocytes Percent Auto 6.5 % (20-40); MANUAL DIFF FLAG SCAN; Mean Corpuscular HGB Conc 33.1 g/dl (31.0-35.0); Mean Corpuscular Hemoglobin 29.8 pg (27.0-33.0); Mean Corpuscular Volume 90.1 fL (80.0-98.0); Mean Platelet Volume 9.7 fL (9.4-12.3); Monocytes Absolute Auto 1.5 X10*3/uL (0.1-1.2); Monocytes Percent Auto 8.3 % (2-11); Neutrophils Absolute Auto 15.7 x10*3/uL (2.0-8.3); Neutrophils Percent Auto 84.4 % (45-73); Platelet Count 342 X10*3/uL (160-400); Red Blood Count 5.53 X10*6/uL (4.20-5.50); Red Cell Distribution Width 13.1 % (11.0-16.0); SCAN SMEAR FLAG 1; White Blood Count 18.6 X10*3/uL (4.8-10.8)
[2022-06-05] MEDS: ondansetron HCL 4 MG/2 ML VIAL IVPUSH (14:48)
[2022-06-05] MEDS: 0.9 % Sodium Chloride 1,000 ML 999 ML IVCONT ×2 (14:49)
[2022-06-05 14:50] LABS: INTERNATIONAL NORM RATIO 1.1 (0.9-1.1); Prothrombin Time 12.7 SEC (10.0-13.1)
[2022-06-05 14:53] LABS: Partial Thromboplastin Time 26.2 SEC (26.0-36.4)
[2022-06-05 15:18] LABS: SLIDE REVIEW VERIFIED
[2022-06-05 16:01] LABS: Alanine Aminotransferase 8 U/L (0-31); Albumin Level 3.3 g/dL (3.5-5.0); Alkaline Phosphatase 99 U/L (39-117); Anion Gap 19 (12-20); Aspartate Amino Transferase 18 U/L (5-31); Bilirubin Total 0.5 mg/dL (0.0-1.0); Blood Urea Nitrogen 39 mg/dL (9-16); Calcium 8.3 mg/dL (8.4-10.2); Carbon Dioxide 23 mmol/L (22-29); Chloride 106 mmol/L (96-108); Creatinine Clr Calc Pharmacy 25.6; Estimated Glomerular Filt Rate 32; Glucose Random 148 mg/dL (60-115); Potassium 4.4 mmol/L (3.3-5.1); Sodium 144 mmol/L (135-145); Total Protein 5.9 g/dL (6.5-8.0)
[2022-06-05 16:12] LABS: Troponin-I High Sensitivity 377.9 ng/L (<3.5-17.0)
[2022-06-05] MEDS: Pantoprazole Sodium 40 MG/10 ML VIAL IVPUSH (17:15)
[2022-06-05 17:18] VITALS: BP 163/90; PULSE 125; RESP 20; O2SAT 95
--- NOTE | 2022-06-05 17:30 | PM.IMHP ---
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 Patient was noted have a single episode of vomiting yesterday after a large meal with recurrent vomiting this morning which appeared like coffee-grounds per facility staff. The patient is unable to provide meaningful history due to her aphasia. On arrival, patient tachycardic to 133, initially tachypneic to 28 which has resolved- possibly related to anxiety. Hypertensive to 163/90. Afebrile. Leukocytosis of 18.6, RBC 5.53, hemoglobin 16.5, hematocrit 49.8 % (baseline H/H 14.2/43.2%). Creatinine 1.57, BUN 39, sodium 144, potassium 4.4, chloride 106, CO2 23, glucose 148. Initial troponin 377.9, repeat pending. EKG showing sinus tachycardia, rate [address] abnormality with ST depressions in inferior and anterolateral leads Stool occult blood negative. CXR showing streaky left-sided basilar atelectasis and similar blunting of the left costophrenic angle which may reflect pleural parenchymal thickening or trace pleural effusion. CT abdomen/pelvis showing nonspecific thickening of the visualized distal esophagus. Consider endoscopy to exclude infiltrating lesion, also found to have contracted gastric antrum versus thickening. In the ED, patient given 2 L IVF and 40 mg pantoprazole. ED provider did discuss elevated troponin with buggy loader who is not recommending initiation of heparin at this time. Review of Systems Review of Systems: Yes Unobtainable due to mental condition [facility] Medical History (Updated 06/05/22 @ 18:01 by YARA Vu) Adjustment disorder COPD (chronic obstructive pulmonary disease) COVID-19 CVA (cerebral vascular accident) Dysphasia Encephalopathy chronic GERD (gastroesophageal reflux disease) Hypertension Hypo-osmolar hyponatremia Osteoporosis Schizoaffective disorder Type 2 diabetes mellitus Family History (Updated 06/05/22 @ 17:44 by YARA Vu) Mother CVD (cardiovascular disease) Father CVD (cardiovascular disease) Hypertension Social History Household Members: Unknown / Unable to assess Housing: Unknown / Unable to assess Unable to assess alcohol history related to: Unknown Alcohol intake: never Patient Tobacco Use Status: Tobacco use Unknown Smoked in Last 30 Days: No Use of substances other than those prescribed or required for medical reasons: No Advance Directives: Yes Advance Directives on File: Yes Advance Directives Date on File: 06/28/21 service: No Current occupational status: retired Meds Allergies Allergy/AdvReac Type Severity Reaction Status Date / Time lactulose Allergy Unknown Verified 06/05/22 13:26 orange juice Allergy Unknown Verified 06/05/22 13:26 Active Medications: Current Medications Acetaminophen (Acetaminophen Supp 650 Mg Supp.Rect) 650 mg NE Q6H PRN PRN Reason: Pain, Mild, fever Heparin Sodium (Porcine) (Heparin Sodium,Porcine 5,000 Unit/Ml Vial) 5,000 unit SUBCUT Q12H NADIA Sodium Chloride (Ns) 1,000 mls @ 100 mls/hr IVCONT .Q10H NADIA Ondansetron HCl (Ondansetron Hcl 4 Mg/2 Ml Vial) 4 mg IVPUSH Q8H PRN PRN Reason: Nausea and Vomiting Pharmacy Consult (Consult Rx Perform Med Rec) 1 each MISCELLANE ONCE PRN PRN Reason: Consult order Home Medications Medication Instructions Recorded Confirmed Last Taken Type acetaminophen 325 mg tablet 650 mg PO BID PRN Pain 03/31/22 06/05/22 Unknown History benztropine 1 mg tablet 1 mg PO BEDTIME 03/31/22 06/05/22 Unknown History calcium carbonate 600 mg-vitamin 1 tab PO DAILY@1300 03/31/22 06/05/22 Unknown History D3 10 mcg (400 unit) tablet (Calcium 600 + D(3)) ferrous gluconate 324 mg (37.5 mg 324 mg PO Q48H 03/31/22 06/05/22 Unknown History iron) tablet fluticasone 500 mcg-salmeterol 50 1 puff inhalation BID 03/31/22 06/05/22 Unknown History mcg/dose blistr powdr for inhalation haloperidol 10 mg tablet 10 mg PO BEDTIME 03/31/22 06/05/22 Unknown History magnesium oxide 400 mg PO BEDTIME 03/31/22 06/05/22 Unknown History pantoprazole 40 mg tablet,delayed 40 tab PO DAILY@0630,1630 03/31/22 06/05/22 Unknown History release polyethylene glycol 3350 17 gram 17 g PO DAILY 03/31/22 06/05/22 Unknown History oral powder packet quetiapine 100 mg tablet (Seroquel) 100 mg PO BEDTIME 03/31/22 06/05/22 Unknown History quetiapine 400 mg tablet 400 mg PO BEDTIME 03/31/22 06/05/22 Unknown History tiotropium bromide 18 mcg capsule 1 cap inhalation DAILY 03/31/22 06/05/22 Unknown History with inhalation device (Spiriva with HandiHaler) trazodone 100 mg tablet 100 mg PO BEDTIME 03/31/22 06/05/22 Unknown History lactase 3,000 unit tablet 3,000 unit PO QIDWMHS 06/05/22 06/05/22 Unknown History nystatin 100,000 unit/gram topical 1 appl topical Q4H PRN Itching 06/05/22 06/05/22 Unknown History cream Physical Exam Vital Signs and Narrative: Vital Signs: Last Vital Signs Temp 99.8 F 06/05/22 13:18 Pulse 125 H 06/05/22 17:18 Resp 20 06/05/22 17:18 BP 163/90 H 06/05/22 17:18 Pulse Ox 95 06/05/22 17:18 O2 Del Method 06/05/22 17:18 BMI result Body Mass Index 23.6 Constitutional - Awake and Alert, No apparent distress Eyes - PERRLA, EOMI Cardiovascular - S1S2, regular rhythm, tachycardic, No edema Respiratory - Normal lung expansion, Normal respiratory effort, No respiratory distress, CTA bilaterally Gastrointestinal - NT / ND; +BS; No rebound or guarding Extremities - no calf tenderness bilaterally, no swelling Skin - Warm/Dry Neurological - Alert, aphasic, 4/5 strength BUE and BLE Psychological - Appropriate affect Results Labs 06/05/22 14:36 06/05/22 15:32 Labs: Laboratory Results - last 24 hr 06/05/22 06/05/22 06/05/22 14:02 14:02 14:36 MCV 90.1 MCH 29.8 MCHC 33.1 RDW 13.1 Plt Count 342 D MPV 9.7 Immature Gran % (Auto) 0.6 H Neut % (Auto) 84.4 H Lymph % (Auto) 6.5 L Sunflower % (Auto) 8.3 Eos % (Auto) 0.0 Baso % (Auto) 0.2 Lymph # (Auto) 1.2 Sunflower # (Auto) 1.5 H Eos # (Auto) 0.0 Baso # (Auto) 0.0 Abs Immat Gran (auto) 0.11 H Absolute Neuts (auto) 15.7 H Absolute Nucleated RBC 0.000 Nucleated RBC % (auto) 0.0 Smear Tech's Comments VERIFIED PT INR APTT Anion Gap Estim Creat Clear Calc Estimated GFR Random Glucose Calcium Total Bilirubin AST ALT Alkaline Phosphatase Troponin I High Sens Total Protein Albumin Stool Occult Blood NEGATIVE COVID-19 (NISA) Negative COVID-19 Clin Com See Note 06/05/22 06/05/22 06/05/22 14:36 15:32 15:32 MCV MCH MCHC RDW Plt Count MPV Immature Gran % (Auto) Neut % (Auto) Lymph % (Auto) Sunflower % (Auto) Eos % (Auto) Baso % (Auto) Lymph # (Auto) Sunflower # (Auto) Eos # (Auto) Baso # (Auto) Abs Immat Gran (auto) Absolute Neuts (auto) Absolute Nucleated RBC Nucleated RBC % (auto) Smear Tech's Comments PT 12.7 INR 1.1 APTT 26.2 Anion Gap 19 Estim Creat Clear Calc 25.6 Estimated GFR 32 Random Glucose 148 H Calcium 8.3 L D Total Bilirubin 0.5 AST 18 ALT 8 Alkaline Phosphatase 99 Troponin I High Sens 377.9 H* Total Protein 5.9 L Albumin 3.3 L Stool Occult Blood COVID-19 (NISA) COVID-19 Clin Com Imaging Radiologist's Impressions: Impressions Chest X-Ray 06/05/22 13:45 IMPRESSION: 1. Streaky left basilar airspace opacities likely reflecting atelectasis. 2. Similar blunting of the left costophrenic angle which may reflect pleural-parenchymal thickening or a trace pleural effusion. Abdomen/Pelvis CT 06/05/22 15:10 IMPRESSION: 1. Nonspecific thickening of the visualized distal esophagus. Correlate with any symptoms of esophagitis. Consider endoscopy for direct correlation to exclude an infiltrating lesion. Contracted gastric antrum versus thickening. This can also be assessed during endoscopy. 2. No acute intra-abdominal findings. Fleischner guidelines were followed. 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 #Acute kidney injury- likely prerenal type 1 d/t poor PO intake/GI losses -Creat 1.57 (baseline 1.05), BUN 39 -Given 2L IV NS in ED -Continue IVF with NS @100ml/hr -avoid nephrotoxins -Follow BMP #Nausea/vomiting -Abd exam benign. Abd/pelvis CT showing nonspecific thickening of the visualized distal esophagus, correlate with symptoms of esophagitis and consider endoscopy for direct correlation to exclude an infiltrating lesion tear there is also noted to be contracted gastric antrum versus thickening. Has chronic dysphagia at baseline -LTC staff reported coffee ground emesis this morning. However, has not vomited since arrival and stool occult negative, no melena -No anemia. H/H appears hemoconcentrated -low suspicion for GI bleed at this time. Consider GI referral if significant drop in H/H or persistent symptoms -Ondansetron prn -Continue PO ppi -clear liquid diet, advance as tolerated -leukocytosis likely hemoconcentrated and reacative from vomiting, not infection -Follow CBC #Acute UTI -UA showing 3+ leukocytes, 2+ blood, negative nitrates, 3+ protein -UC pending. BC ordered -Leukocytosis not likely related to sepsis, rather hemoconcentration and reactive as above. Tachycardia likely 2/2 to dehdyration from GI lossed -IV ceftriaxone initiated 06/05 #Elevated troponin -initial trop 377, repeat 361 -EKG sinus tach, rate 132, with st depression in anterolateral and inferior leads compared to prior ekg, and inversions in lateral leads -ED discussed with Dr. Piper, not recommending parental anticoagulation at this time -Admit to telemetry # sinus tachycardia- likely secondary to dehydration from GI losses -Monitor on telemetry -IV NS as above #Chronic dysphagia -Ct abd/pelvis noted possible esophagitis with constriction of gastric antrum. Recommend outpt GI eval -Tolerates ground diabetic diet moistened with thin liquids at [facility] # controlled rvk-srygxiq-pfspmufwb type 2 diabetes -POC glucose -advance to diabetic diet as tolerated -Humulog sliding scale # schizoaffective disorder -continue home medications # COPD-without acute exacerbation -continue home inhalers # chronic constipation -continue home meds # hypertension -not on antihypertensives -monitor BP DVT prophylaxis-heparin DNR/DNI per MOLST form Clear liquid diet at this time. Gets diabetic diet, ground mech, moistened with thin liquids at [facility] Patient requires inpatient stay of at least 2 midnights for management of MISHA secondary to dehydration from GI losses requiring IV hydration and close monitoring of renal function electrolyte levels. Time Spent With Patient Time: Total time managing care of this patient today ____ minutes. Quality Stroke Does the patient have a stroke diagnosis?: No VTE Prior VTE?: No VTE Risk Level:: Medical - moderate - high VTE Device Contraindication: Treatment Not Indicated VTE Drug Contraindication: N/A - Med Ordered
--- OUTSIDE RECORDS SUMMARY | 2022-06-05 17:35 | XMS_ITS | Continuity of Care Document ---
:1945 Author Organization [facility] Address [address] [place] [address]- Care Team Providers Name Role Phone Otto Neil MD Primary Care Physician Encounter [facility] Date(s): 02/11/20 - 02/14/[address] [address]- [facility] Discharge Disposition: A-Transfer SNF Attending Physician: Zana KHAN, Piyush Roldan Admitting Physician: Iam KHAN, Seven Referring Physician: Not on Staff, Referring MD Allergies, Adverse Reactions, Alerts Substance Reaction Severity Status NKA Active Medications Advair Diskus 100 mcg-50 mcg inhalation powder 1, puffs, Inhalation, 2 times a day, # 60 each, Refills 0, Maintenance, 02/14/20 15:24:00 EDT, Powder Start Date: 02/14/20 Status: OrderedAlbuterol (Eqv-Proventil HFA) 90 mcg/inh inhalation aerosol 2 puffs, Inhalation, Every 6 hours, PRN Wheezing/Shortness of Breath, # 8 Gm, 0 Refills, Maintenance, 02/14/20 15:25:00 EDT Start Date: 02/14/20 Status: Orderedalendronate 70 mg oral tablet 1 tablet = 70 mg, By Mouth, Every week, # 12 tablet, 0 Refills, Maintenance, 02/14/20 15:17:00 EDT, Tablet Start Date: 02/14/20 Status: Orderedatorvastatin 10 mg oral tablet 1 tablet = 10 mg, By Mouth, Daily, # 90 tablet, 0 Refills, Maintenance, 02/14/20 15:31:00 EDT Start Date: 02/14/20 Status: Orderedbenztropine 1 mg oral tablet 1 mg, 1, tablet, By Mouth, Daily at bedtime, # 180 tablet, Refills 0, Maintenance, 02/14/20 15:21:00EDT Start Date: 02/14/20 Status: Orderedferrous gluconate 324 mg oral tablet 1 tablet = 324 mg, By Mouth, Daily, # 100 tablet, 0 Refills, Maintenance, 02/14/20 15:17:00 EDT, Tablet Start Date: 02/14/20 Status: Orderedhaloperidol 10 mg oral tablet 10 mg, 1, tablet, By Mouth, Daily at bedtime, # 180 tablet, Refills 0, Maintenance, 02/14/20 15:20:00 EDT Start Date: 02/14/20 Status: OrderedLopressor 50 mg oral tablet 12.5 mg, 0.25, tablet, By Mouth, 2 times a day, Refills 0, Maintenance, 02/14/20 15:26:00 EDT Start Date: 02/14/20 Status: Orderedloratadine 10 mg oral tablet 10 mg, 1, tablet, By Mouth, Daily, # 30 tablet, Refills 0, Maintenance, 02/14/20 15:17:00 EDT Start Date: 02/14/20 Status: OrderedMetFORMIN (Eqv-Glucophage XR) 500 mg oral tablet, extended release 1 tablet = 500 mg, Daily, 0 Refills, Maintenance, 02/14/20 15:18:00 EDT Start Date: 02/14/20 Status: Orderedpantoprazole 40 mg oral delayed release tablet 1 tablet = 40 mg, By Mouth, 2 times a day, # 30 tablet, 0 Refills, Maintenance, 02/14/20 15:17:00 EDT, EC Tablet Start Date: 02/14/20 Status: OrderedQUEtiapine 25 mg oral tablet 12.5 mg, 0.5, tablet, By Mouth, 3 times a day, PRN, Refills 0, Maintenance, Agitation, 02/14/20 15:41:00 EDT Start Date: 02/14/20 Status: OrderedSpiriva HandiHaler 18 mcg inhalation capsule 1 capsule = 18 mcg, Daily, 0 Refills, Maintenance, 02/14/20 15:17:00 EDT Start Date: 02/14/20 Status: OrderedtraZODone 100 mg oral tablet 100 mg, 1, tablet, By Mouth, Daily at bedtime, # 180 tablet, Refills 0, Maintenance, 02/14/20 15:19:00 EDT Start Date: 02/14/20 Status: Ordered Problem List Condition Effective Dates Status Health Status Informant Benign essential HTN(Confirmed) Active Chronic obstructive pulmonary disease Active (COPD)(Confirmed) Chronic schizophrenia(Confirmed) Active Dementia(Confirmed) Active Diabetes(Confirmed) Active Class 1 obesity due to excess calories Active with serious comorbidity and body mass index (BMI) of 30.0 to 30.9 in adult(Confirmed) Daily urinary incontinence(Confirmed) Active Vital Signs Most recent to oldest 1 2 3 [Reference Range]: Height 152.5 cm 152.5 cm 152.5 cm (02/14/20 3:46 PM) (02/14/20 8:22 AM) (02/14/20 5:52 AM) Weight 67.1 kg 67.4 kg 67.4 kg (02/12/20 6:54 AM) (02/11/20 7:03 PM) (02/11/20 6:02 PM) Oxygen Saturation [94-100 96 % 98 % 96 % %] (02/14/20 3:46 PM) (02/14/20 8:22 AM) (02/14/20 5:52 AM) Pulse Rate [55-90 bpm] 85 bpm 105 bpm 108 bpm (02/14/20 3:46 PM) *H* *H* (02/14/20 11:20 AM) (02/14/20 8: 22 AM) Body Mass Index 28.98 [18.5-24.99] *H* (02/11/20 6:02 PM) Blood Pressure 129/76 mm Hg 128/72 mm Hg 126/71 mm Hg [90-138/55-84 mm Hg] (02/14/20 3:46 PM) (02/14/20 11:20 AM) ( 8:22 AM) Respiratory Rate [16-30 18 br/min 18 br/min 18 br/mi n br/min] (02/14/20 3:46 PM) (02/14/20 8:22 AM) (02/14/20 5:52 AM) Temperature [96.8-100.4 98.7 DegF 97.6 DegF 97.9 Deg F DegF] (02/14/20 3:46 PM) (02/14/20 8:22 AM) (02/14/20 5:52 AM) Mode of Delivery (Oxygen) Room air Room air Room a ir (02/14/20 3:46 PM) (02/14/20 8:22 AM) (02/14/20 5:52 AM) Blood pressure sites Arm, left Arm, right Arm, left (02/14/20 3:46 PM) (02/14/20 8:22 AM) (02/14/20 5:52 AM) Temperature Route Temporal Temporal Temporal (02/14/20 3:46 PM) (02/14/20 8:22 AM) (02/14/20 5:52 AM) Dry Weight 67.4 kg (02/11/20 6:02 PM) Weight Obtained Via Bed scale Bed scale (02/12/20 6:54 AM) (02/11/20 6:02 PM)
[2022-06-05 17:55] LABS: Appearance Urine Turbid; Color Urine Dark Yellow; Glucose Urine UA Negative (Negative); Leukocyte Esterase Urine Large (3+) (Negative); Nitrite Urine Negative (Negative); PH 5.5 (5.0-9.0); UMIC TRIGGER UACC YES; Urine Blood Moderate (2+) (Negative); Urine Ketones 15 mg/dL (Negative); Urine Protein 300 (3+) mg/dL (Neg-Trace)
[2022-06-05 18:07] LABS: Bacteria Urine 4+ (None Seen); Squamous Epithelial Cell Urine >20 /HPF (0-2); UACC Culture Trigger YES; WBC Urine >50 /HPF (0-5)
[2022-06-05 18:11] LABS: Troponin-I High Sensitivity 361.1 ng/L (<3.5-17.0)
--- NOTE | 2022-06-05 18:14 | PHA.MEDREC ---
Pharmacy Consult ? Medication Reconciliation Pharmacy has completed the medication reconciliation. Used list from SNF to complete med rec. Confirmed dose on seroquel with facility due to unclear notations in patient chart.
[2022-06-05] MEDS: 0.9 % Sodium Chloride 1,000 ML 100 ML IVCONT (18:36)
[2022-06-05] MEDS: Heparin Sodium,Porcine 5,000 UNIT/ML VIAL 5000 UNIT SUBCUT (18:50)
[2022-06-05 19:19] LABS: Lactic Acid 2.4 mmol/L (0.5-2.0)
[2022-06-05] MEDS: cefTRIAXone sodium 1 GM in 0.9 % Sodium Chloride 50 ML IV (19:35)
[2022-06-05 20:00] VITALS: BP 142/78; PULSE 121; RESP 18; TEMP 37.2; O2SAT 97; BMI 25.9
[2022-06-05 20:44] LABS: Reflex Lactate? Lactic Acid Added
[2022-06-05 20:57] LABS: Glucose, Whole Blood 109 mg/dL (60-115)
[2022-06-05] MEDS: Lactase TABLET 1 TAB PO (21:02)
[2022-06-05] MEDS: Magnesium Oxide 400 MG TABLET PO (21:03)
[2022-06-05] MEDS: QUEtiapine Fumarate 400 MG TABLET PO (21:03)
[2022-06-05] MEDS: Benztropine Mesylate 1 MG TABLET PO (21:03)
[2022-06-05] MEDS: traZODone HCL 100 MG TABLET PO (21:03)
[2022-06-05] MEDS: QUEtiapine Fumarate 100 MG TABLET PO (21:03)
[2022-06-05] MEDS: HaloperidoL 5 MG TABLET 10 MG PO (21:03)
[2022-06-05 22:18] LABS: ~Lactic Acid-LAB USE ONLY 3.2 mmol/L (0.5-2.0)
[2022-06-05] MEDS: 0.9 % Sodium Chloride 250 ML 999 ML IV (22:32)
[2022-06-05 23:08] LABS: Reflex Lactate? 2 Y
[2022-06-05 23:27] VITALS: BP 103/58; PULSE 120; RESP 18; TEMP 36.4; O2SAT 97
[2022-06-06] VITALS (7 sets, daily range): BP systolic 116–167; BP diastolic 58–78; PULSE 103–126; RESP 17–20; TEMP 36.3–37.1; O2SAT 95–99
[2022-06-06 00:24] LABS: ~Lactic Acid-LAB USE ONLY 2.4 mmol/L (0.5-2.0)
[2022-06-06] MEDS: 0.9 % Sodium Chloride 1,000 ML 100 ML IVCONT (04:01)
[2022-06-06] MEDS: Heparin Sodium,Porcine 5,000 UNIT/ML VIAL 5000 UNIT SUBCUT ×2 (05:54→17:27)
[2022-06-06 06:19] LABS: MANUAL DIFF FLAG NO
[2022-06-06 06:21] LABS: Basophils Percent Auto 0.5 % (0-2); Eosinophils Percent Auto 0.5 % (0-4); Hemoglobin 11.2 g/dl (12.0-16.0); Imm Gran Abs Auto 0.04 X10*3/uL (0.00-0.03); Imm Gran Pct Auto 0.5 % (0.0-0.4); Lymphocytes Percent Auto 23.1 % (20-40); Mean Corpuscular HGB Conc 31.1 g/dl (31.0-35.0); Mean Corpuscular Hemoglobin 30.5 pg (27.0-33.0); Mean Corpuscular Volume 98.1 fL (80.0-98.0); Mean Platelet Volume 11.3 fL (9.4-12.3); Monocytes Absolute Auto 0.9 X10*3/uL (0.1-1.2); Monocytes Percent Auto 9.9 % (2-11); Neutrophils Absolute Auto 5.7 x10*3/uL (2.0-8.3); Neutrophils Percent Auto 65.5 % (45-73); Red Blood Count 3.67 X10*6/uL (4.20-5.50); Red Cell Distribution Width 13.3 % (11.0-16.0); White Blood Count 8.7 X10*3/uL (4.8-10.8)
--- NOTE | 2022-06-06 06:27 | PC.NURSE ---
Pt is on a clear liquid diet with no instructions pertaining to PO medication. This RN asked Dr. Victoria if it was ok to give medication crushed in applesauce to which he agreed.
[2022-06-06 06:41] LABS: Platelet Count 51 X10*3/uL (160-400)
[2022-06-06 06:47] LABS: Anion Gap 18 (12-20); Blood Urea Nitrogen 43 mg/dL (9-16); Calcium 6.9 mg/dL (8.4-10.2); Carbon Dioxide 15 mmol/L (22-29); Chloride 115 mmol/L (96-108); Creatinine Clr Calc Pharmacy 37.7; Estimated Glomerular Filt Rate 45; Glucose Random 120 mg/dL (60-115); Potassium 4.1 mmol/L (3.3-5.1); Sodium 144 mmol/L (135-145)
[2022-06-06 07:24] LABS: Glucose, Whole Blood 113 mg/dL (60-115)
[2022-06-06] MEDS: Lactated Ringers 1,000 ML 80 ML IVCONT ×2 (08:03→21:02)
--- NOTE | 2022-06-06 10:03 | P.PNIM_ITS ---
Subjective Subjective Date of Service: 06/06/22 Interval History: nausea vomitting Physical Exam Vital Signs: Vital Signs: Last Vital Signs Temp 97.9 F 06/06/22 07:48 Pulse 110 H 06/06/22 07:48 Resp 18 06/06/22 07:48 BP 120/58 L 06/06/22 07:48 Pulse Ox 97 06/06/22 07:48 O2 Del Method 06/06/22 07:48 BMI result Body Mass Index 25.9 General: Alert, minimally verbal Resp: CTA bilateral, no accessory muscles used CVS: S1,S2,RRR GI: soft, non tender, non distended Objective Data Active Medications Acetaminophen (Acetaminophen Supp 650 Mg Supp.Rect) 650 mg [place] Q6H PRN PRN Reason: Pain, Mild, fever Benztropine Mesylate (Benztropine Mesylate 1 Mg Tablet) 1 mg PO BEDTIME [facility] Last Admin: 06/05/22 21:03 Dose: 1 mg Documented By: LUDIVINA Calcium Carbonate/Cholecalciferol (Calcium + Vitamin D 250 Mg Tablet) 500 mg PO DAILY@1300 [facility] Dextrose (Dextrose 50 % 25 Gm/50 Ml Syringe) 25 gm IVPUSH Q15M PRN; Protocol PRN Reason: per Hypoglycemia Standing Ord. Ferrous Sulfate (Ferrous Sulfate 324 Mg Tablet.Dr) 324 mg PO Q48H [facility] Last Admin: 06/06/22 08:20 Dose: Not Given Documented By: LIZ Non-Admin Reason: pt having difficulty swallowing Fluticasone/Vilanterol (Fluticasone/Vilanterol 200/25 Blst.W.Dev) 1 puff INHALE RDAILY [facility] Glucose (Glucose Gel 15 Gm Gel..Gram.) 15 gm PO Q15M PRN; Protocol PRN Reason: per Hypoglycemia Standing Ord. Haloperidol (Haloperidol 5 Mg Tablet) 10 mg PO BEDTIME [facility] Last Admin: 06/05/22 21:03 Dose: 10 mg Documented By: LUDIVINA Heparin Sodium (Porcine) (Heparin Sodium,Porcine 5,000 Unit/Ml Vial) 5,000 unit SUBCUT Q12H [facility] Last Admin: 06/06/22 05:54 Dose: 5,000 unit Documented By: LUDIVINA Ceftriaxone Sodium 1 gm/ (Sodium Chloride) 50 mls @ 100 mls/hr IV Q24H [facility] Last Infusion: 06/05/22 21:02 Dose: 0 mls/hr Documented By: LUDIVINA Lactated Ringer's (Lr) 1,000 mls @ 80 mls/hr IVCONT .[id number] [facility] Last Admin: 06/06/22 08:03 Dose: 80 mls/hr Documented By: LIZ Insulin Human Lispro (Insulin Lispro 100 Unit/Ml 3 Ml Vial) 0 unit SUBCUT QIDACHS [facility]; Protocol Last Admin: 06/06/22 07:25 Dose: Not Given Documented By: LIZ Non-Admin Reason: No Insulin Coverage Lactase (Lactase Tablet) 1 tab PO QIDWMHS [facility] Last Admin: 06/06/22 08:19 Dose: Not Given Documented By: LIZ Non-Admin Reason: pt having difficulty swallowing Magnesium Oxide (Magnesium Oxide 400 Mg Tablet) 400 mg PO BEDTIME [facility] Last Admin: 06/05/22 21:03 Dose: 400 mg Documented By: LUDIVINA Ondansetron HCl (Ondansetron Hcl 4 Mg/2 Ml Vial) 4 mg IVPUSH Q8H PRN PRN Reason: Nausea and Vomiting Pantoprazole Sodium (Pantoprazole Sodium 40 Mg/10 Ml Vial) 40 mg IVPUSH DAILY@0630 [facility] Pharmacy Consult (Consult Rx Perform Med Rec) 1 each MISCELLANE ONCE PRN PRN Reason: Consult order Polyethylene Glycol (Polyethylene Glycol 3350 17 Gm Powd.Pack) 17 gm PO DAILY [facility] Last Admin: 06/06/22 08:20 Dose: Not Given Documented By: LIZ Non-Admin Reason: pt having difficulty swallowing Quetiapine Fumarate (Quetiapine Fumarate 400 Mg Tablet) 400 mg PO BEDTIME [facility] Last Admin: 06/05/22 21:03 Dose: 400 mg Documented By: LUDIVINA Quetiapine Fumarate (Quetiapine Fumarate 100 Mg Tablet) 100 mg PO BEDTIME [facility] Last Admin: 06/05/22 21:03 Dose: 100 mg Documented By: LUDIVINA Tiotropium [place] (Tiotropium [place] 18 Mcg Cap.W.Dev) 1 puff INHALE RDAILY [facility] Trazodone HCl (Trazodone Hcl 100 Mg Tablet) 100 mg PO BEDTIME [facility] Last Admin: 06/05/22 21:03 Dose: 100 mg Documented By: LUDIVINA Labs 06/06/22 05:59 06/06/22 05:59 Labs: Laboratory Results - last 24 hr 06/05/22 06/05/22 06/05/22 14:02 14:02 14:36 MCV 90.1 MCH 29.8 MCHC 33.1 RDW 13.1 Plt Count 342 D MPV 9.7 Immature Gran % (Auto) 0.6 H Neut % (Auto) 84.4 H Lymph % (Auto) 6.5 L [place] % (Auto) 8.3 Eos % (Auto) 0.0 Baso % (Auto) 0.2 Lymph # (Auto) 1.2 [place] # (Auto) 1.5 H Eos # (Auto) 0.0 Baso # (Auto) 0.0 Abs Immat Gran (auto) 0.11 H Absolute Neuts (auto) 15.7 H Absolute Nucleated RBC 0.000 Nucleated RBC % (auto) 0.0 Smear Tech's Comments VERIFIED PT INR APTT Anion Gap Estim Creat Clear Calc Estimated GFR POC Glucose Random Glucose Lactic Acid Lactic Acid F/U @ 2Hr Lactic Acid F/U @ 4Hr Calcium Total Bilirubin AST ALT Alkaline Phosphatase Troponin I High Sens Total Protein Albumin Urine Color Urine Appearance Urine pH Ur Specific [place] Urine Protein Urine Glucose (UA) Urine Ketones Urine Blood Urine Nitrite Ur Leukocyte Esterase Urine RBC Urine WBC Ur Squamous Epith Cells Urine Bacteria Hyaline Casts Stool Occult Blood NEGATIVE COVID-19 (NISA) Negative COVID-19 Clin Com See Note 06/05/22 06/05/22 06/05/22 14:36 15:32 15:32 MCV MCH MCHC RDW Plt Count MPV Immature Gran % (Auto) Neut % (Auto) Lymph % (Auto) [place] % (Auto) Eos % (Auto) Baso % (Auto) Lymph # (Auto) [place] # (Auto) Eos # (Auto) Baso # (Auto) Abs Immat Gran (auto) Absolute Neuts (auto) Absolute Nucleated RBC Nucleated RBC % (auto) Smear Tech's Comments PT 12.7 INR 1.1 APTT 26.2 Anion Gap 19 Estim Creat Clear Calc 25.6 Estimated GFR 32 POC Glucose Random Glucose 148 H Lactic Acid Lactic Acid F/U @ 2Hr Lactic Acid F/U @ 4Hr Calcium 8.3 L D Total Bilirubin 0.5 AST 18 ALT 8 Alkaline Phosphatase 99 Troponin I High Sens 377.9 H* Total Protein 5.9 L Albumin 3.3 L Urine Color Urine Appearance Urine pH Ur Specific [place] Urine Protein Urine Glucose (UA) Urine Ketones Urine Blood Urine Nitrite Ur Leukocyte Esterase Urine RBC Urine WBC Ur Squamous Epith Cells Urine Bacteria Hyaline Casts Stool Occult Blood COVID-19 (NISA) COVID-19 Clin Com 06/05/22 06/05/22 06/05/22 17:45 17:45 18:39 MCV MCH MCHC RDW Plt Count MPV Immature Gran % (Auto) Neut % (Auto) Lymph % (Auto) [place] % (Auto) Eos % (Auto) Baso % (Auto) Lymph # (Auto) [place] # (Auto) Eos # (Auto) Baso # (Auto) Abs Immat Gran (auto) Absolute Neuts (auto) Absolute Nucleated RBC Nucleated RBC % (auto) Smear Tech's Comments PT INR APTT Anion Gap Estim Creat Clear Calc Estimated GFR POC Glucose Random Glucose Lactic Acid 2.4 H* Lactic Acid F/U @ 2Hr Lactic Acid F/U @ 4Hr Calcium Total Bilirubin AST ALT Alkaline Phosphatase Troponin I High Sens 361.1 H* Total Protein Albumin Urine Color Dark Yellow Urine Appearance Turbid Urine pH 5.5 Ur Specific [place] 1.020 Urine Protein 300 (3+) H Urine Glucose (UA) Negative Urine Ketones 15 Urine Blood Moderate (2+) H Urine Nitrite Negative Ur Leukocyte Esterase Large (3+) H Urine RBC 6-10 H Urine WBC >50 H Ur Squamous Epith Cells >20 Urine Bacteria 4+ Hyaline Casts 11-20 Stool Occult Blood COVID-19 (NISA) COVID-19 Clin Com 06/05/22 06/05/22 06/05/22 20:40 21:05 23:50 MCV MCH MCHC RDW Plt Count MPV Immature Gran % (Auto) Neut % (Auto) Lymph % (Auto) [place] % (Auto) Eos % (Auto) Baso % (Auto) Lymph # (Auto) [place] # (Auto) Eos # (Auto) Baso # (Auto) Abs Immat Gran (auto) Absolute Neuts (auto) Absolute Nucleated RBC Nucleated RBC % (auto) Smear Tech's Comments PT INR APTT Anion Gap Estim Creat Clear Calc Estimated GFR POC Glucose 109 Random Glucose Lactic Acid Lactic Acid F/U @ 2Hr 3.2 H* Lactic Acid F/U @ 4Hr 2.4 H* Calcium Total Bilirubin AST ALT Alkaline Phosphatase Troponin I High Sens Total Protein Albumin Urine Color Urine Appearance Urine pH Ur Specific [place] Urine Protein Urine Glucose (UA) Urine Ketones Urine Blood Urine Nitrite Ur Leukocyte Esterase Urine RBC Urine WBC Ur Squamous Epith Cells Urine Bacteria Hyaline Casts Stool Occult Blood COVID-19 (NISA) COVID-19 Clin Com 06/06/22 06/06/22 06/06/22 05:59 05:59 07:17 MCV 98.1 H D MCH 30.5 MCHC 31.1 RDW 13.3 Plt Count 51 L D MPV 11.3 Immature Gran % (Auto) 0.5 H Neut % (Auto) 65.5 Lymph % (Auto) 23.1 [place] % (Auto) 9.9 Eos % (Auto) 0.5 Baso % (Auto) 0.5 Lymph # (Auto) 2.0 [place] # (Auto) 0.9 Eos # (Auto) 0.0 Baso # (Auto) 0.0 Abs Immat Gran (auto) 0.04 H Absolute Neuts (auto) 5.7 Absolute Nucleated RBC 0.000 Nucleated RBC % (auto) 0.0 Smear Tech's Comments PT INR APTT Anion Gap 18 Estim Creat Clear Calc 37.7 Estimated GFR 45 POC Glucose 113 Random Glucose 120 H Lactic Acid Lactic Acid F/U @ 2Hr Lactic Acid F/U @ 4Hr Calcium 6.9 L D Total Bilirubin AST ALT Alkaline Phosphatase Troponin I High Sens Total Protein Albumin Urine Color Urine Appearance Urine pH Ur Specific [place] Urine Protein Urine Glucose (UA) Urine Ketones Urine Blood Urine Nitrite Ur Leukocyte Esterase Urine RBC Urine WBC Ur Squamous Epith Cells Urine Bacteria Hyaline Casts Stool Occult Blood COVID-19 (NISA) COVID-19 Clin Com Assessment and Plan (1) MISHA (acute kidney injury): Status: Acute Plan 77-year-old female residing at [facility] with history of schizoaffective disorder, adjustment disorder, chronic unspecified encephalopathy, 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 Acute kidney injury- likely prerenal type 1 d/t poor PO intake/GI losses improving with fluids monitor Nausea/vomiting iv ppi, fluids, speech Acute UTI ceftriaxone, follow up cultures history of cva with chronic aphasia stable Elevated troponin flat, likely demand ischemia, no evidence of acs Chronic dysphagia -Ct abd/pelvis noted possible esophagitis with constriction of gastric antrum. Recommend outpt GI eval -Tolerates ground diabetic diet moistened with thin liquids at [facility] [employer]OWER INST[employer]ER follow up controlled [id number]-[id number] type 2 diabetes insulin schizoaffective disorder haldol, seroquel COPD-without acute exacerbation -continue home inhalers DVT prophylaxis-heparin DNR/DNI per [facility] form reason for continued hospitalization:vomitting Time Spent With Patient Time: Total time managing care of this patient today ____ minutes. Quality Stroke Does the patient have a stroke diagnosis?: No VTE Prior VTE?: No VTE Risk Level:: Medical - moderate - high VTE Device Contraindication: Treatment Not Indicated VTE Drug Contraindication: N/A - Med Ordered
[2022-06-06 11:16] LABS: Glucose, Whole Blood 99 mg/dL (60-115)
[2022-06-06] MEDS: Pantoprazole Sodium 40 MG/10 ML VIAL IVPUSH (11:33)
[2022-06-06] MEDS: Acetaminophen Supp 650 MG SUPP.RECT PR (15:49)
[2022-06-06] MEDS: Fluticasone/Vilanterol 200/25 BLST.W.DEV 1 PUFF INHALE (16:23)
[2022-06-06 17:07] LABS: Glucose, Whole Blood 113 mg/dL (60-115)
[2022-06-06] MEDS: cefTRIAXone sodium 1 GM in 0.9 % Sodium Chloride 50 ML IV (18:23)
--- NOTE | 2022-06-06 18:36 | PC.NURSE ---
pt needed to be straight cathed after failing to void independently. Prior bladder scan showed 461 mL pvr. 300mL of urine voided via straight cath. aware.
[2022-06-06] MEDS: Insulin Lispro 100 UNIT/ML 3 ML VIAL SUBCUT (21:00)
[2022-06-06] MEDS: HaloperidoL 5 MG TABLET 10 MG PO (21:01)
[2022-06-06] MEDS: traZODone HCL 100 MG TABLET PO (21:01)
[2022-06-06] MEDS: QUEtiapine Fumarate 400 MG TABLET PO (21:01)
[2022-06-06] MEDS: QUEtiapine Fumarate 100 MG TABLET PO (21:01)
[2022-06-06 21:03] LABS: Glucose, Whole Blood 189 mg/dL (60-115)
[2022-06-07] VITALS (7 sets, daily range): BP systolic 120–165; BP diastolic 61–83; PULSE 99–115; RESP 17–20; TEMP 36.1–36.8; O2SAT 94–96
[2022-06-07] MEDS: Heparin Sodium,Porcine 5,000 UNIT/ML VIAL 5000 UNIT SUBCUT ×2 (06:13→17:06)
[2022-06-07] MEDS: Pantoprazole Sodium 40 MG/10 ML VIAL IVPUSH (06:13)
[2022-06-07 07:14] LABS: Hematocrit 36.2 % (37.0-47.0); Hemoglobin 11.5 g/dl (12.0-16.0); Mean Corpuscular HGB Conc 31.8 g/dl (31.0-35.0); Mean Corpuscular Hemoglobin 30.5 pg (27.0-33.0); Mean Platelet Volume 9.8 fL (9.4-12.3); Platelet Count 188 X10*3/uL (160-400); Red Blood Count 3.77 X10*6/uL (4.20-5.50); White Blood Count 7.5 X10*3/uL (4.8-10.8)
[2022-06-07 07:25] LABS: Glucose, Whole Blood 90 mg/dL (60-115)
[2022-06-07 07:46] LABS: Anion Gap 14 (12-20); Blood Urea Nitrogen 24 mg/dL (9-16); Carbon Dioxide 18 mmol/L (22-29); Chloride 112 mmol/L (96-108); Creatinine Clr Calc Pharmacy 54.9; Estimated Glomerular Filt Rate > 60; Glucose Fasting 83 mg/dL (60-99); Magnesium 1.6 mg/dL (1.6-2.6); Potassium 3.5 mmol/L (3.3-5.1); Sodium 140 mmol/L (135-145)
[2022-06-07 07:53] LABS: Calcium 7.6 mg/dL (8.4-10.2)
[2022-06-07] MEDS: Fluticasone/Vilanterol 200/25 BLST.W.DEV 1 PUFF INHALE (07:54)
[2022-06-07] MEDS: Lactase TABLET 1 TAB PO ×4 (08:43→19:53)
[2022-06-07] MEDS: Lactated Ringers 1,000 ML 80 ML IVCONT ×2 (09:58→20:26)
--- NOTE | 2022-06-07 09:59 | HO.PM.IMPN ---
Subjective Subjective Date of Service: 06/07/22 Interval History: nausea vomitting improved Physical Exam Vital Signs: Vital Signs: Last Vital Signs Temp 97.1 F 06/07/22 07:03 Pulse 105 H 06/07/22 07:57 Resp 18 06/07/22 07:57 BP 128/61 06/07/22 07:03 Pulse Ox 95 06/07/22 07:03 O2 Del Method 06/07/22 07:03 BMI result Body Mass Index 25.9 General: Alert, minimally verbal Resp: CTA bilateral, no accessory muscles used CVS: S1,S2,RRR GI: soft, non tender, non distended Objective Data Active Medications Acetaminophen (Acetaminophen Supp 650 Mg Supp.Rect) 650 mg [place] Q6H PRN PRN Reason: Pain, Mild, fever Last Admin: 06/06/22 15:49 Dose: 650 mg Documented By: LIZ Benztropine Mesylate (Benztropine Mesylate 1 Mg Tablet) 1 mg PO BEDTIME [facility] Last Admin: 06/06/22 21:20 Dose: Not Given Documented By: LUDIVINA Non-Admin Reason: unable to tolerate Calcium Carbonate/Cholecalciferol (Calcium + Vitamin D 250 Mg Tablet) 500 mg PO DAILY@1300 [facility] Last Admin: 06/06/22 13:30 Dose: Not Given Documented By: LIZ Non-Admin Reason: pending swallow eval Dextrose (Dextrose 50 % 25 Gm/50 Ml Syringe) 25 gm IVPUSH Q15M PRN; Protocol PRN Reason: per Hypoglycemia Standing Ord. Ferrous Sulfate (Ferrous Sulfate 324 Mg Tablet.Dr) 324 mg PO Q48H [facility] Last Admin: 06/06/22 08:20 Dose: Not Given Documented By: LIZ Non-Admin Reason: pt having difficulty swallowing Fluticasone/Vilanterol (Fluticasone/Vilanterol 200/25 Blst.W.Dev) 1 puff INHALE RDAILY [facility] Last Admin: 06/07/22 07:54 Dose: 1 puff Documented By: RUDY Glucose (Glucose Gel 15 Gm Gel..Gram.) 15 gm PO Q15M PRN; Protocol PRN Reason: per Hypoglycemia Standing Ord. Haloperidol (Haloperidol 5 Mg Tablet) 10 mg PO BEDTIME [facility] Last Admin: 06/06/22 21:01 Dose: 10 mg Documented By: LUDIVINA Heparin Sodium (Porcine) (Heparin Sodium,Porcine 5,000 Unit/Ml Vial) 5,000 unit SUBCUT Q12H [facility] Last Admin: 06/07/22 06:13 Dose: 5,000 unit Documented By: LUDIVINA Ceftriaxone Sodium 1 gm/ (Sodium Chloride) 50 mls @ 100 mls/hr IV Q24H [facility] Last Infusion: 06/06/22 20:03 Dose: 0 mls/hr Documented By: LUDIVINA Lactated Ringer's (Lr) 1,000 mls @ 80 mls/hr IVCONT .[id number] [facility] Last Admin: 06/07/22 09:58 Dose: 80 mls/hr Documented By: YUDITH Insulin Human Lispro (Insulin Lispro 100 Unit/Ml 3 Ml Vial) 0 unit SUBCUT QIDACHS [facility]; Protocol Last Admin: 06/07/22 07:41 Dose: Not Given Documented By: YUDITH Non-Admin Reason: No Insulin Coverage Lactase (Lactase Tablet) 1 tab PO QIDWMHS [facility] Last Admin: 06/07/22 08:43 Dose: 1 tab Documented By: YUDITH Magnesium Oxide (Magnesium Oxide 400 Mg Tablet) 400 mg PO BEDTIME [facility] Last Admin: 06/06/22 21:20 Dose: Not Given Documented By: LUDIVINA Non-Admin Reason: unable to tolerate Ondansetron HCl (Ondansetron Hcl 4 Mg/2 Ml Vial) 4 mg IVPUSH Q8H PRN PRN Reason: Nausea and Vomiting Pantoprazole Sodium (Pantoprazole Sodium 40 Mg/10 Ml Vial) 40 mg IVPUSH DAILY@0630 [facility] Last Admin: 06/07/22 06:13 Dose: 40 mg Documented By: LUDIVINA Pharmacy Consult (Consult Rx Perform Med Rec) 1 each MISCELLANE ONCE PRN PRN Reason: Consult order Polyethylene Glycol (Polyethylene Glycol 3350 17 Gm Powd.Pack) 17 gm PO DAILY [facility] Last Admin: 06/06/22 08:20 Dose: Not Given Documented By: LIZ Non-Admin Reason: pt having difficulty swallowing Quetiapine Fumarate (Quetiapine Fumarate 400 Mg Tablet) 400 mg PO BEDTIME [facility] Last Admin: 06/06/22 21:01 Dose: 400 mg Documented By: LUDIVINA Quetiapine Fumarate (Quetiapine Fumarate 100 Mg Tablet) 100 mg PO BEDTIME [facility] Last Admin: 06/06/22 21:01 Dose: 100 mg Documented By: LUDIVINA Tiotropium [place] (Tiotropium [place] 18 Mcg Cap.W.Dev) 1 puff INHALE RDAILY [facility] Last Admin: 06/07/22 07:54 Dose: 1 puff Documented By: RUDY Trazodone HCl (Trazodone Hcl 100 Mg Tablet) 100 mg PO BEDTIME [facility] Last Admin: 06/06/22 21:01 Dose: 100 mg Documented By: LUDIVINA Labs 06/07/22 06:39 06/07/22 06:39 Labs: Laboratory Results - last 24 hr 06/06/22 06/06/22 06/06/22 11:05 16:56 20:49 MCV MCH MCHC RDW Plt Count MPV Absolute Nucleated RBC Nucleated RBC % (auto) Anion Gap Estim Creat Clear Calc Estimated GFR POC Glucose 99 113 189 H Fasting Glucose Calcium Magnesium 06/07/22 06/07/22 06/07/22 06:39 06:39 07:07 MCV 96.0 MCH 30.5 MCHC 31.8 RDW 13.0 Plt Count 188 D MPV 9.8 Absolute Nucleated RBC 0.000 Nucleated RBC % (auto) 0.0 Anion Gap 14 Estim Creat Clear Calc 54.9 Estimated GFR > 60 POC Glucose 90 Fasting Glucose 83 Calcium 7.6 L D Magnesium 1.6 Microbiology Microbiology Results: Microbiology 06/05/22 18:08 Urine Culture - Final Urine Catheterized - Verdin Catheter Escherichia coli 06/05/22 18:39 Blood Culture - Preliminary Blood - Venous No growth after 24 hours. 06/05/22 18:39 Blood Culture - Preliminary Blood - Venous No growth after 24 hours. 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 Acute kidney injury- likely prerenal type 1 d/t poor PO intake/GI losses resolved with fluids monitor Nausea/vomiting iv ppi, fluids, speech eval Acute UTI ceftriaxone, ecoli in urine history of cva with chronic aphasia stable Elevated troponin flat, likely demand ischemia, no evidence of acs Chronic dysphagia -Ct abd/pelvis noted possible esophagitis with constriction of gastric antrum. Recommend outpt GI eval -Tolerates ground diabetic diet moistened with thin liquids at [facility] [employer]ERK follow up controlled ctm-tyvufro-lzcjfxpog type 2 diabetes insulin schizoaffective disorder haldol, seroquel COPD-without acute exacerbation -continue home inhalers DVT prophylaxis-heparin DNR/DNI per [facility] form reason for continued hospitalization: awaiting team facilitator eval Time Spent With Patient Time: Total time managing care of this patient today ____ minutes. Quality Stroke Does the patient have a stroke diagnosis?: No VTE Prior VTE?: No VTE Risk Level:: Medical - moderate - high VTE Device Contraindication: Treatment Not Indicated VTE Drug Contraindication: N/A - Med Ordered
[2022-06-07 11:06] LABS: Glucose, Whole Blood 117 mg/dL (60-115)
[2022-06-07] MEDS: Calcium + Vitamin D 250 MG TABLET 500 MG PO (12:16)
--- NOTE | 2022-06-07 12:24 | MHC.CM.PN ---
spoke with pts hcp alex avilez who confirms that pt is a lt resident of [facility] where she will return when dcd p[t is covid vasx x 4 dc plan return to [facility]
[2022-06-07 15:42] LABS: Glucose, Whole Blood 85 mg/dL (60-115)
--- NOTE | 2022-06-07 16:05 | MHC.SL.SWA ---
Speech Pathologist Impression: Oropharyngeal dysphagia Risk of Aspiration Due to: Neurological Condition Dysphasia Diet Status: Downgrade Liquid Consistency and Strategies for Safe Swallow: Liquid Intake Recommendation: Thin Liquid Intake Strategies: Small Sips No Straws Solid Food Consistency: Dietary Recommendations: Pureed (NDD1) Additional Modifications to Solid Foods: Pt w/ hx of CVA in 04/08 with late effect of aphasia; GERD; dysphagia. Per staff report from [facility], pt at baseline was on a ground well moistened diet with thin liquids (avoid salads; soft snacks only). Pt seen for bedside swallow eval this afternoon. Pt tolerated bites of applesauce and sips of water by cup with no s/s of aspiration and good oral clearance. Pt did not chew and spit out ground consistency despite encouragement. Recommend START on PUREED diet (NDD1) and THIN liquids (NO STRAWS), pills CRUSHED in PUREE. 1:1 supervision, provide assistance with tray set up and throughout meals as needed. Standard aspiration precautions apply. Diet order updated by MAIL CLERK BILLS, recommendations written on board in pt's room. Notified , RN, RD via [employer] Message. MAIL CLERK BILLS will continue to follow to monitor tolerance and re-assess for potential upgrade. Oral Medication Intake: Crushed with Puree Please contact the pharmacy regarding appropriate crushable or liquid drug formulations that are available whenever modified delivery is recommended. Compensatory Strategies and Precautions to be Taken for Safe Swallow: Sitting Upright (90 deg) No Straw Small Bites and Sips Rate of Ingestion Change Supervision While Eating and Drinking for Safe Swallow: Total Supervision (1:1) Swallowing Recommended Treatments: Compens. Strategy Educat. Recommendation for Speech: Inpatient Speech Therapy Speech Therapy through Rehab Facility Supervisor Taping Clinican/Clinical Fellow: No Supervisory Statement: I have reviewed and agree with the student/clinical fellow's documentation: N/A Speech Language Pathologist: Rachana Manuel M.A., CCC-MAIL CLERK BILLS
--- NOTE | 2022-06-07 16:06 | MHC.SL.SWA ---
Speech Pathologist Impression: Oropharyngeal dysphagia Risk of Aspiration Due to: Neurological Condition Dysphasia Diet Status: Downgrade Pt w/ hx of CVA in 04/08 with late effect of aphasia; GERD; dysphagia. Per staff report from [facility], pt at baseline was on a ground well moistened diet with thin liquids (avoid salads; soft snacks only). Pt seen for bedside swallow eval this afternoon. Pt tolerated bites of applesauce and sips of water by cup with no s/s of aspiration and good oral clearance. Pt did not chew and spit out ground consistency despite encouragement. Recommend START on PUREED diet (NDD1) and THIN liquids (NO STRAWS), pills CRUSHED in PUREE. 1:1 supervision, provide assistance with tray set up and throughout meals as needed. Standard aspiration precautions apply. Recommendations written on board in pt's room. Notified MD, RN, RD via [employer] Message. BLOCKER AND CUTTER CONTACT LENS will continue to follow to monitor tolerance and re-assess for potential upgrade. Liquid Consistency and Strategies for Safe Swallow: Liquid Intake Recommendation: Thin Liquid Intake Strategies: Small Sips No Straws Solid Food Consistency: Dietary Recommendations: Pureed (NDD1) Oral Medication Intake: Crushed with Puree Please contact the pharmacy regarding appropriate crushable or liquid drug formulations that are available whenever modified delivery is recommended. Compensatory Strategies and Precautions to be Taken for Safe Swallow: Sitting Upright (90 deg) No Straw Small Bites and Sips Rate of Ingestion Change Supervision While Eating and Drinking for Safe Swallow: Total Supervision (1:1) Swallowing Recommended Treatments: Compens. Strategy Educat. Recommendation for Speech: Inpatient Speech Therapy Speech Therapy through Rehab Facility Sketch Liner Clinican/Clinical Fellow: No Supervisory Statement: I have reviewed and agree with the student/clinical fellow's documentation: N/A Speech Language Pathologist: Rachana Manuel M.A., CCC-BLOCKER AND CUTTER CONTACT LENS
[2022-06-07] MEDS: cefTRIAXone sodium 1 GM in 0.9 % Sodium Chloride 50 ML IV (19:47)
[2022-06-07] MEDS: QUEtiapine Fumarate 400 MG TABLET PO (19:53)
[2022-06-07] MEDS: Benztropine Mesylate 1 MG TABLET PO (19:53)
[2022-06-07] MEDS: QUEtiapine Fumarate 100 MG TABLET PO (19:53)
[2022-06-07] MEDS: traZODone HCL 100 MG TABLET PO (19:53)
[2022-06-07] MEDS: HaloperidoL 5 MG TABLET 10 MG PO (19:53)
[2022-06-07] MEDS: Magnesium Oxide 400 MG TABLET PO (20:00)
[2022-06-07 20:30] LABS: Glucose, Whole Blood 57 mg/dL (60-115)
[2022-06-07 20:52] LABS: Glucose, Whole Blood 131 mg/dL (60-115)
[2022-06-07 22:04] LABS: Glucose, Whole Blood 130 mg/dL (60-115)
[2022-06-07 22:46] LABS: Glucose, Whole Blood 113 mg/dL (60-115)
[2022-06-08] VITALS (8 sets, daily range): BP systolic 114–169; BP diastolic 57–94; PULSE 90–107; RESP 17–20; TEMP 36.1–37.1; O2SAT 95–97
--- NOTE | 2022-06-08 01:20 | PC.NURSE ---
p; bedtime poc 57, patient asymptomatic i; Patient able to take po. 8 oz orange juice given to patient. recheck poc 131 e; Dr. De La O made aware. Per , recheck poc q1h for next 2 hours. at 2200 poc 130 and at 2243 poc 113. Patient remains asymptomatic MD updated of above.
[2022-06-08] MEDS: Heparin Sodium,Porcine 5,000 UNIT/ML VIAL 5000 UNIT SUBCUT ×2 (05:23→15:56)
[2022-06-08] MEDS: Pantoprazole Sodium 40 MG/10 ML VIAL IVPUSH (05:23)
[2022-06-08 07:19] LABS: Hematocrit 32.4 % (37.0-47.0); Hemoglobin 10.6 g/dl (12.0-16.0); Mean Corpuscular HGB Conc 32.7 g/dl (31.0-35.0); Mean Corpuscular Hemoglobin 29.9 pg (27.0-33.0); Mean Corpuscular Volume 91.3 fL (80.0-98.0); Mean Platelet Volume 9.5 fL (9.4-12.3); Platelet Count 207 X10*3/uL (160-400); Red Blood Count 3.55 X10*6/uL (4.20-5.50); Red Cell Distribution Width 12.6 % (11.0-16.0); White Blood Count 6.4 X10*3/uL (4.8-10.8)
[2022-06-08 07:26] LABS: Glucose, Whole Blood 78 mg/dL (60-115)
[2022-06-08 07:37] LABS: Blood Urea Nitrogen 12 mg/dL (9-16); Calcium 7.8 mg/dL (8.4-10.2); Creatinine Clr Calc Pharmacy 63.6; Estimated Glomerular Filt Rate > 60; Glucose Fasting 90 mg/dL (60-99)
[2022-06-08] MEDS: Fluticasone/Vilanterol 200/25 BLST.W.DEV 1 PUFF INHALE (07:57)
[2022-06-08 08:02] LABS: Anion Gap 12 (12-20); Carbon Dioxide 26 mmol/L (22-29); Chloride 106 mmol/L (96-108); Potassium 3.6 mmol/L (3.3-5.1); Sodium 140 mmol/L (135-145)
--- NOTE | 2022-06-08 09:17 | HO.PM.IMPN ---
Subjective Subjective Date of Service: 06/08/22 Interval History: nausea vomitting improved Physical Exam Vital Signs: Vital Signs: Last Vital Signs Temp 97.5 F 06/08/22 07:10 Pulse 105 H 06/08/22 08:00 Resp 17 06/08/22 08:00 BP 159/77 H 06/08/22 07:10 Pulse Ox 97 06/08/22 07:10 O2 Del Method 06/08/22 07:10 BMI result Body Mass Index 25.9 General: Alert, minimally verbal Resp: CTA bilateral, no accessory muscles used CVS: S1,S2,RRR GI: soft, non tender, non distended Objective Data Active Medications Acetaminophen (Acetaminophen Supp 650 Mg Supp.Rect) 650 mg AK Q6H PRN PRN Reason: Pain, Mild, fever Last Admin: 06/06/22 15:49 Dose: 650 mg Documented By: LIZ Benztropine Mesylate (Benztropine Mesylate 1 Mg Tablet) 1 mg PO BEDTIME [facility] Last Admin: 06/07/22 19:53 Dose: 1 mg Documented By: ROSALBA Calcium Carbonate/Cholecalciferol (Calcium + Vitamin D 250 Mg Tablet) 500 mg PO DAILY@1300 [facility] Last Admin: 06/07/22 12:16 Dose: 500 mg Documented By: YUDITH Dextrose (Dextrose 50 % 25 Gm/50 Ml Syringe) 25 gm IVPUSH Q15M PRN; Protocol PRN Reason: per Hypoglycemia Standing Ord. Ferrous Sulfate (Ferrous Sulfate 324 Mg Tablet.Dr) 324 mg PO Q48H [facility] Last Admin: 06/06/22 08:20 Dose: Not Given Documented By: LIZ Non-Admin Reason: pt having difficulty swallowing Fluticasone/Vilanterol (Fluticasone/Vilanterol 200/25 Blst.W.Dev) 1 puff INHALE RDAILY [facility] Last Admin: 06/08/22 07:57 Dose: 1 puff Documented By: NEVILLE Glucose (Glucose Gel 15 Gm Gel..Gram.) 15 gm PO Q15M PRN; Protocol PRN Reason: per Hypoglycemia Standing Ord. Haloperidol (Haloperidol 5 Mg Tablet) 10 mg PO BEDTIME [facility] Last Admin: 06/07/22 19:53 Dose: 10 mg Documented By: ROSALBA Heparin Sodium (Porcine) (Heparin Sodium,Porcine 5,000 Unit/Ml Vial) 5,000 unit SUBCUT Q12H [facility] Last Admin: 06/08/22 05:23 Dose: 5,000 unit Documented By: TRISTAN Ceftriaxone Sodium 1 gm/ (Sodium Chloride) 50 mls @ 100 mls/hr IV Q24H [facility] Last Infusion: 06/07/22 20:26 Dose: 0 mls/hr Documented By: ROSALBA Lactated Ringer's (Lr) 1,000 mls @ 80 mls/hr IVCONT .[id number] [facility] Last Admin: 06/07/22 20:26 Dose: 80 mls/hr Documented By: ROSALBA Insulin Human Lispro (Insulin Lispro 100 Unit/Ml 3 Ml Vial) 0 unit SUBCUT QIDACHS [facility]; Protocol Last Admin: 06/08/22 07:51 Dose: Not Given Documented By: PANCHO Non-Admin Reason: No Insulin Coverage Lactase (Lactase Tablet) 1 tab PO QIDWMHS [facility] Last Admin: 06/07/22 19:53 Dose: 1 tab Documented By: ROSALBA Magnesium Oxide (Magnesium Oxide 400 Mg Tablet) 400 mg PO TID [facility] Ondansetron HCl (Ondansetron Hcl 4 Mg/2 Ml Vial) 4 mg IVPUSH Q8H PRN PRN Reason: Nausea and Vomiting Pantoprazole Sodium (Pantoprazole Sodium 40 Mg/10 Ml Vial) 40 mg IVPUSH DAILY@0630 [facility] Last Admin: 06/08/22 05:23 Dose: 40 mg Documented By: TRISTAN Pharmacy Consult (Consult Rx Perform Med Rec) 1 each MISCELLANE ONCE PRN PRN Reason: Consult order Polyethylene Glycol (Polyethylene Glycol 3350 17 Gm Powd.Pack) 17 gm PO DAILY [facility] Last Admin: 06/07/22 10:01 Dose: Not Given Documented By: YUDITH Non-Admin Reason: Patient Refused Quetiapine Fumarate (Quetiapine Fumarate 400 Mg Tablet) 400 mg PO BEDTIME [facility] Last Admin: 06/07/22 19:53 Dose: 400 mg Documented By: ROSALBA Quetiapine Fumarate (Quetiapine Fumarate 100 Mg Tablet) 100 mg PO BEDTIME [facility] Last Admin: 06/07/22 19:53 Dose: 100 mg Documented By: ROSALBA Tiotropium Mcmechen (Tiotropium Mcmechen 18 Mcg Cap.W.Dev) 1 puff INHALE RDAILY [facility] Last Admin: 06/08/22 07:57 Dose: 1 puff Documented By: NEVILLE Trazodone HCl (Trazodone Hcl 100 Mg Tablet) 100 mg PO BEDTIME [facility] Last Admin: 06/07/22 19:53 Dose: 100 mg Documented By: ROSALBA Labs 06/08/22 06:55 06/08/22 06:55 Labs: Laboratory Results - last 24 hr 06/07/22 06/07/22 06/07/22 10:54 15:35 20:18 MCV MCH MCHC RDW Plt Count MPV Absolute Nucleated RBC Nucleated RBC % (auto) Anion Gap Estim Creat Clear Calc Estimated GFR POC Glucose 117 H 85 57 L* Fasting Glucose Calcium 06/07/22 06/07/22 06/07/22 20:48 22:02 22:43 MCV MCH MCHC RDW Plt Count MPV Absolute Nucleated RBC Nucleated RBC % (auto) Anion Gap Estim Creat Clear Calc Estimated GFR POC Glucose 131 H 130 H 113 Fasting Glucose Calcium 06/08/22 06/08/22 06/08/22 06:55 06:55 07:14 MCV 91.3 MCH 29.9 MCHC 32.7 RDW 12.6 Plt Count 207 MPV 9.5 Absolute Nucleated RBC 0.000 Nucleated RBC % (auto) 0.0 Anion Gap 12 Estim Creat Clear Calc 63.6 Estimated GFR > 60 POC Glucose 78 Fasting Glucose 90 Calcium 7.8 L Microbiology Microbiology Results: Microbiology 06/05/22 18:39 Blood Culture - Preliminary Blood - Venous No growth after 48 hours. 06/05/22 18:39 Blood Culture - Preliminary Blood - Venous No growth after 48 hours. 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 Acute kidney injury- likely prerenal type 1 d/t poor PO intake/GI losses resolved with fluids monitor drop in h and h volume shift from hydration vs acute blood loss anemia monitor Nausea/vomiting iv ppi, fluids, speech appreciated - pureed solids, thin liquids Acute UTI ceftriaxone, ecoli in urine history of cva with chronic aphasia stable Elevated troponin flat, likely demand ischemia, no evidence of acs Chronic dysphagia -Ct abd/pelvis noted possible esophagitis with constriction of gastric antrum. Recommend outpt GI eval -Tolerates ground diabetic diet moistened with thin liquids at [facility] [employer] COACH follow up controlled hrm-dprlrjw-kuevirrit type 2 diabetes insulin schizoaffective disorder haldol, seroquel COPD-without acute exacerbation -continue home inhalers DVT prophylaxis-heparin DNR/DNI per [facility]OLST form reason for continued hospitalization: anemia Time Spent With Patient Time: Total time managing care of this patient today ____ minutes. Quality Stroke Does the patient have a stroke diagnosis?: No VTE Prior VTE?: No VTE Risk Level:: Medical - moderate - high VTE Device Contraindication: Treatment Not Indicated VTE Drug Contraindication: N/A - Med Ordered
[2022-06-08] MEDS: polyethylene glycoL 3350 17 GM POWD.PACK PO (10:20)
[2022-06-08] MEDS: Ferrous Sulfate 324 MG TABLET.DR PO (10:23)
[2022-06-08] MEDS: Lactase TABLET 1 TAB PO ×3 (10:23→20:41)
[2022-06-08] MEDS: Magnesium Oxide 400 MG TABLET PO ×3 (10:24→20:41)
--- NOTE | 2022-06-08 11:47 | MHC.SL.SWA ---
Speech Pathologist Impression: Risk of Aspiration Due to: Neurological Condition Dysphasia Diet Status: Recommend UPGRADE diet to Ground/Mechanical Altered (NDD2) continue with Thin liquids, Pills Crushed in puree. This is reportedly close to the patient's baseline diet (may be allowed some items that are not routinely on this diet at [facility], such as soft breads w/ground sandwich meat). SORAYA KHAN sent recommendation by secure text, EQUAL OPPORTUNITY REPRESENTATIVE upgraded diet in orders. EQUAL OPPORTUNITY REPRESENTATIVE will continue to follow 1-2 X for toleration of diet. Liquid Consistency and Strategies for Safe Swallow: Liquid Intake Recommendation: Thin Liquid Intake Strategies: Small Sips Solid Food Consistency: Dietary Recommendations: Grnd/Mech Altered (NDD2) Additional Modifications to Solid Foods: Add Sauces and Gravies. Patient will need supervision during meals with assistance with setting up tray, assuring that all drinks and food items are open and readily available and patient is able to access without spilling. Provide direct support if patient evidences difficulty. Aspiration precautions apply, monitor that patient is progressing with meal without coughing or frequently clearing throat. Oral Medication Intake: Crushed with Puree Please contact the pharmacy regarding appropriate crushable or liquid drug formulations that are available whenever modified delivery is recommended. Compensatory Strategies and Precautions to be Taken for Safe Swallow: Sitting Upright (90 deg) Liquids from Cup Small Bites and Sips Alternate Liquids/Solids Supervision While Eating and Drinking for Safe Swallow: Total Supervision (1:1) Foods to Avoid: Hard to chew solids, mixed consistencies, crunchy textures, foods with seeds, nuts, etc. Swallowing Recommended Treatments: Gustatory Stimulation Recommendation for Speech: Inpatient Speech Therapy Speech Therapy through Rehab Facility Comment: Patient was seen this a.m. for a repeat swallow assessment. EQUAL OPPORTUNITY REPRESENTATIVE had seen pt 06/08, had recommended Puree/Thin to start, this a.m. EQUAL OPPORTUNITY REPRESENTATIVE noted this a.m. diet had been continued as Clear Liquid, Nawaf snider MD who then updated diet in orders. On 06/08/22, patient had tolerated only purees and spat out trials of soft/ground (regular diet consistency). Today, patient was awake and alert, sitting up in bed. Patient agreed to try bite sized, crust less pieces of a chicken salad sandwich as well as juice. On piece of Chicken Salad [place], patient produced a prolonged period of mastication, followed by timely initiation of swallow, laryngeal elevation wfl. Patient followed bite of sandwich with sips of juice, evidencing a good oral control and timely transit of the bolus, timely swallow and no clinical signs of aspiration. Patient did not want additional trials of sandwich/soft solid consistency. Patient reported she has no dentures. Recommend UPGRADE diet to Ground/Mechanical Altered (NDD2) continue with Thin liquids, Pills Crushed in puree. This is reportedly close to the patient's baseline diet (may be allowed some items that are not routinely on this diet at [facility], such as soft breads w/ground sandwich meat). SORAYA KHAN sent recommendation by secure text, EQUAL OPPORTUNITY REPRESENTATIVE upgraded diet in orders. EQUAL OPPORTUNITY REPRESENTATIVE will continue to follow 1-2 X for toleration of diet. Frequency/Duration: Date Range for Service Req: Timeline to reassess: Die Repair Clinican/Clinical Fellow: No Supervisory Statement: I have reviewed and agree with the student/clinical fellow's documentation: N/A Speech Language Pathologist: Trina Pelaez M.A., CCC-EQUAL OPPORTUNITY REPRESENTATIVE
[2022-06-08 11:56] LABS: Glucose, Whole Blood 96 mg/dL (60-115)
[2022-06-08 15:37] LABS: Glucose, Whole Blood 126 mg/dL (60-115)
[2022-06-08] MEDS: Calcium + Vitamin D 250 MG TABLET 500 MG PO (15:55)
[2022-06-08] MEDS: cefTRIAXone sodium 1 GM in 0.9 % Sodium Chloride 50 ML IV (18:09)
[2022-06-08 19:46] LABS: Glucose, Whole Blood 102 mg/dL (60-115)
[2022-06-08] MEDS: QUEtiapine Fumarate 400 MG TABLET PO (20:39)
[2022-06-08] MEDS: HaloperidoL 5 MG TABLET 10 MG PO (20:39)
[2022-06-08] MEDS: traZODone HCL 100 MG TABLET PO (20:40)
[2022-06-08] MEDS: QUEtiapine Fumarate 100 MG TABLET PO (20:40)
[2022-06-08] MEDS: Benztropine Mesylate 1 MG TABLET PO (20:40)
[2022-06-09 04:00] VITALS: BP 116/61; PULSE 94; RESP 17; TEMP 36.7; O2SAT 96
[2022-06-09] MEDS: Heparin Sodium,Porcine 5,000 UNIT/ML VIAL 5000 UNIT SUBCUT (06:13)
[2022-06-09] MEDS: Pantoprazole Sodium 40 MG/10 ML VIAL IVPUSH (06:13)
[2022-06-09 07:31] LABS: Glucose, Whole Blood 90 mg/dL (60-115)
[2022-06-09 07:37] LABS: Hematocrit 35.5 % (37.0-47.0); Hemoglobin 11.8 g/dl (12.0-16.0); Mean Corpuscular HGB Conc 33.2 g/dl (31.0-35.0); Mean Corpuscular Hemoglobin 30.4 pg (27.0-33.0); Mean Corpuscular Volume 91.5 fL (80.0-98.0); Mean Platelet Volume 9.9 fL (9.4-12.3); Platelet Count 217 X10*3/uL (160-400); Red Blood Count 3.88 X10*6/uL (4.20-5.50); Red Cell Distribution Width 12.9 % (11.0-16.0); White Blood Count 6.4 X10*3/uL (4.8-10.8)
[2022-06-09 07:40] VITALS: BP 110/53; PULSE 92; RESP 16; TEMP 36.6; O2SAT 97
[2022-06-09 07:58] LABS: Anion Gap 11 (12-20); Blood Urea Nitrogen 12 mg/dL (9-16); Calcium 7.8 mg/dL (8.4-10.2); Carbon Dioxide 23 mmol/L (22-29); Chloride 108 mmol/L (96-108); Creatinine Clr Calc Pharmacy 63.6; Estimated Glomerular Filt Rate > 60; Glucose Fasting 89 mg/dL (60-99); Potassium 3.8 mmol/L (3.3-5.1); Sodium 138 mmol/L (135-145)
[2022-06-09] MEDS: Fluticasone/Vilanterol 200/25 BLST.W.DEV 1 PUFF INHALE (08:03)
[2022-06-09 08:04] VITALS: RESP 16
[2022-06-09] MEDS: polyethylene glycoL 3350 17 GM POWD.PACK PO (08:22)
[2022-06-09] MEDS: Lactase TABLET 1 TAB PO (08:23)
[2022-06-09] MEDS: Magnesium Oxide 400 MG TABLET PO (08:23)
--- NOTE | 2022-06-09 10:11 | PM.DS ---
DS: Providers Provider Date of Service: 06/09/22 Date of admission: 06/05/22 17:19 Primary care physician: Reginald Carrasco MD DS: Diagnosis Discharge Diagnosis (1) MISHA (acute kidney injury): Status: Acute DS: Summary Hospital Course Hospital Course: from initial hpi: Chief Complaint: nausea/vomiting, lethargy 77-year-old female residing at 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 Patient was noted have a single episode of vomiting yesterday after a large meal with recurrent vomiting this morning which appeared like coffee-grounds per facility staff.? The patient is unable to provide meaningful history due to her aphasia. On arrival, patient tachycardic to 133, initially tachypneic to 28 which has resolved- possibly related to anxiety. Hypertensive to 163/90.? Afebrile.? Leukocytosis of 18.6, RBC 5.53, hemoglobin 16.5, hematocrit 49.8 % (baseline H/H 14.2/43.2%).? Creatinine 1.57, BUN 39, sodium 144, potassium 4.4, chloride 106, CO2 23, glucose 148.? Initial troponin 377.9, repeat pending.? EKG showing sinus tachycardia, rate [address] abnormality with ST depressions in inferior and anterolateral leads Stool occult blood negative.? CXR showing streaky left-sided basilar atelectasis and similar blunting of the left costophrenic angle which may reflect pleural parenchymal thickening or trace pleural effusion.? CT abdomen/pelvis showing nonspecific thickening of the visualized distal esophagus.? Consider endoscopy to exclude infiltrating lesion, also found to have contracted gastric antrum versus thickening.? In the ED, patient given 2 L IVF and 40 mg pantoprazole.? ED provider did discuss elevated troponin with service support representative who is not recommending initiation of heparin at this time. hospital course: Patient was admitted for acute kidney injury due to dehydration/ GI losses, should with IV fluids and MISHA resolved. Was noted to have acute drop in hemoglobin, this was likely due to volume showed from hydration, has stabilized by discharge. For nausea vomiting she was given IV PPI, seen by speech recommended NDD2 solids with thin liquids, on CT abdomen pelvis showed a possible esophagitis with construction gastric antrum, she should follow-up with Gastroenterology as outpatient. For acute UTI with E coli she was treated with ceftriaxone and completed course. For history of CVA with chronic aphasia she remained at baseline. Patient's elevated troponin was likely demand ischemia no evidence of ACS. For schizoaffective disorder she was continued on Haldol and Seroquel. For diabetes she was continue insulin. For COPD she remained stable and was continued on home inhalers. Patient is now medically stable be discharged back to senior living facility. Time Spent with Patient Time attestation: Total time managing care of this patient today ____ minutes. Discharge coordination time: Greater than 30 minutes Quality: Safe Use of Opioids Does Pt have an Active Cancer Diagnosis on the Problem List?: No Quality: Stroke Does the patient have a stroke diagnosis?: No Physical Exam Vital Signs: Vital Signs: Last Vital Signs Temp 97.9 F 06/09/22 07:40 Pulse 92 06/09/22 07:40 Resp 16 06/09/22 08:04 BP 110/53 L 06/09/22 07:40 Pulse Ox 97 06/09/22 07:40 O2 Del Method 06/09/22 07:40 BMI result Body Mass Index 25.9 General: Alert, minimally verbal Resp: CTA bilateral, no accessory muscles used CVS: S1,S2,RRR GI: soft, non tender, non distended DS: Data Data Completed and Pending Labs on day of discharge: Laboratory Results - last 24 hr 06/08/22 06/08/22 06/08/22 11:42 15:27 19:23 WBC RBC Hgb Hct MCV MCH MCHC RDW Plt Count MPV Absolute Nucleated RBC Nucleated RBC % (auto) Sodium Potassium Chloride Carbon Dioxide Anion Gap BUN Creatinine Estim Creat Clear Calc Estimated GFR POC Glucose 96 126 H 102 Fasting Glucose Calcium 06/09/22 06/09/22 06/09/22 07:04 07:04 07:15 WBC 6.4 RBC 3.88 L Hgb 11.8 L Hct 35.5 L MCV 91.5 MCH 30.4 MCHC 33.2 RDW 12.9 Plt Count 217 MPV 9.9 Absolute Nucleated RBC 0.000 Nucleated RBC % (auto) 0.0 Sodium 138 Potassium 3.8 Chloride 108 Carbon Dioxide 23 Anion Gap 11 L BUN 12 Creatinine 0.70 Estim Creat Clear Calc 63.6 Estimated GFR > 60 POC Glucose 90 Fasting Glucose 89 Calcium 7.8 L Preliminary micro results at discharge 06/05/22 18:39 Blood Culture - Preliminary Blood - Venous No growth after 48 hours. 06/05/22 18:39 Blood Culture - Preliminary Blood - Venous No growth after 48 hours. Discharge Plan Discharge Anticipated Discharge Date/Time: 06/09/22 10:07 Patient Disposition: Xfer SNF Discharge Diagnosis: misha Referrals: Reginald Carrasco MD [Primary Care Provider] - 1 Week Discharge Medications: Continued lactase 3,000 unit Tablet 3,000 unit PO QIDWMHS Rx Instructions: administer with meals and/or snacks nystatin 100,000 unit/gram Cream 1 appl TOPICAL Q4H PRN (Reason: Itching) acetaminophen 325 mg Tablet 650 mg PO BID PRN (Reason: Pain) polyethylene glycol 3350 17 gram Powder In Packet 17 g PO DAILY Rx Instructions: HOLD FOR LOOSE STOOLS quetiapine [Seroquel] 100 mg Tablet 100 mg PO BEDTIME trazodone 100 mg tablet 100 mg PO BEDTIME pantoprazole 40 mg tablet,delayed release (DR/EC) 40 tab PO DAILY@0630,1630 fluticasone propion-salmeterol 500-50 mcg/dose blister with device 1 puff inhalation BID haloperidol 10 mg tablet 10 mg PO BEDTIME benztropine 1 mg tablet 1 mg PO BEDTIME Spiriva with HandiHaler 18 mcg capsule, w/inhalation device 1 cap inhalation DAILY quetiapine 400 mg tablet 400 mg PO BEDTIME calcium carbonate-vitamin D3 [Calcium 600 + D(3)] 600 mg-10 mcg (400 unit) Tablet 1 tab PO DAILY@1300 ferrous gluconate 324 mg (37.5 mg iron) Tablet 324 mg PO Q48H Rx Instructions: GIVE WITH LUNCH magnesium oxide 400 mg magnesium Tablet 400 mg PO BEDTIME Discharge Orders: Discharge Order (Routine); Ordered 06/09/22 Ordered By: Vincent Bowman Diet: NDD2 solids Activity on Discharge: As tolerated Stand Alone Forms: Patient Portal Discharge page Care Plan Goals: recovery Health Concerns: misha Plan of Treatment: follow up gi for dysphagia, Assessment: see above
--- NOTE | 2022-06-09 10:15 | MHC.CM.PN ---
DP: PT MEDICALLY CLEARED TO RETURN TO [facility]. FACILITY UPDATED. RN AWARE. HCP SHASHANK AWARE. BLS TRANSPORT BOOKED FOR 12:30 [facility]IA [facility]
[2022-06-09 11:47] LABS: Glucose, Whole Blood 144 mg/dL (60-115)
[2022-06-09 11:59] LABS: COVID-19 Test Negative (Negative); IDNOW Serial# 16C4AD1C
[2022-06-09 12:00] VITALS: BP 121/70; PULSE 91; RESP 16; TEMP 36; O2SAT 97
--- NOTE | 2022-06-09 13:20 | PC.NURSE ---
Gave report to KATHRYN Cooper receiving patient back at [facility] at this time. EMS here for pickup.
== END 2022-06-09 13:34 | disposition skilled nursing facility (03) | DRG 690 ==
LOC: HO.ED 16:45 → HO.EDOVER 17:34 → HO.IMC 19:19
PROVIDERS: Admitting Provider Physician Assistant; Emergency Provider Emergency Medicine; PCP Family Medicine; Visit Provider Internal Medicine
DX: N39.0 Urinary tract infection, site not specified (principal); N17.9 Acute kidney failure, unspecified; D62 Acute posthemorrhagic anemia; E22.2 Syndrome of inappropriate secretion of antidiuretic hormone; I24.8 Other forms of acute ischemic heart disease; J44.9 Chronic obstructive pulmonary disease, unspecified; K59.09 Other constipation; F25.9 Schizoaffective disorder, unspecified; Z66 Do not resuscitate; E11.9 Type 2 diabetes mellitus without complications; I10 Essential (primary) hypertension; K21.00 Gastro-esophageal reflux disease with esophagitis, without bleeding; E86.0 Dehydration; B96.20 Unspecified Escherichia coli [E. coli] as the cause of diseases classified elsewhere; I69.320 Aphasia following cerebral infarction; Z20.822 Contact with and (suspected) exposure to COVID-19; Z79.51 Long term (current) use of inhaled steroids; Z79.899 Other long term (current) drug therapy
CPT/HCPCS: 36415; 71045; 74176; 80048; 80053; 81001; 82272; 82947; 83605; 83735; 84484; 85025; 85027; 85610; 85730; 87040; 87086; 87088; 87186; 87635; 92526; 92610; 93005; 99285; J0696; J1643; J2405

== ENCOUNTER 2023-07-01 09:12 | Outpatient (REF) | payer MEDICARE, MEDICAID, SELFPAY ==
--- NOTE | ~2023-07-01 | FL_ITS ---
EXAMINATION: XR FLUOROSCOPY UPPER GI WITH AIR CLINICAL INFORMATION: Dysphagia. Recent CT shows thickening of the distal esophagus. Schizophrenia. History of stroke COMPARISON: None correlation made with CT abdomen and pelvis 06/05/2022. TECHNIQUE: Fluoroscopic air contrast upper GI examination was performed utilizing standard techniques with thin and thick barium and effervescent granules. Numerous spot images were obtained. FINDINGS: Lateral cine images of the oropharynx and hypopharynx demonstrate normal swallow mechanism with normal epiglottic inversion and soft palate elevation. No tracheal penetration, glottic or subglottic aspiration identified. No nasopharyngeal reflux present. Hypopharyngeal structures appear normal without evidence of mass or diverticulum. There was no significant cricopharyngeal achalasia. Dual and single contrast images of the esophagus demonstrate normal caliber, contour, and mucosal pattern. No evidence of mass or ulcerations. Esophageal peristalsis is mildly disorganized. A small type I hiatal hernia is present. Gastroesophageal reflux wasn't able to the evaluated in this examination. Limited images of the stomach demonstrated a short segment mild stricture below the GE junction is likely benign in nature. No evidence of mass. The gastric mucosal folds appear thickened. There are areas of contrast pooling in the fundus body and antrum the stomach. Contrast freely passed into the gastric antrum and duodenal bulb without delay. Evaluation of the duodenal sweep and proximal jejunum was unable to be obtained due to patient's inability to cooperate with the examination. FLUOROSCOPY TIME: 2 minutes 58 seconds Number of Spot Images: 2 Number of Cine: 7 DOSE AREA PRODUCT: 873 uGy-m2 (microgray-meter squared) FL/FL barium swallow with air IMPRESSION: 1. Mildly disorganized esophageal peristalsis. 2. Small type I hiatal hernia 3. Short segment mild stricture below the GE junction that is likely benign in nature and involves the hiatus hernia. 4. Thickened gastric mucosal folds in addition to multiple areas of contrast pooling in the stomach that likely represents erosive gastritis. Recommend correlation with EGD. This procedure was performed by Golden Martinez PA-C, and supervised by Dr. Olson
== END 2023-07-01 09:13 | disposition home or self-care (01) ==
LOC: HO.XRAY 09:12
PROVIDERS: Visit Provider Family Medicine
DX: R13.10 Dysphagia, unspecified (principal)
CPT/HCPCS: 74221

== ENCOUNTER → 2023-07-01 09:18 | Outpatient (BNV) | payer MEDICARE, MEDICAID, SELFPAY | PROVIDERS: Visit Provider Physician Assistant Surgical | DX: R13.10 Dysphagia, unspecified (principal) | CPT/HCPCS: 74221 ==

== ENCOUNTER 2025-01-29 09:10 | Emergency (ER) | payer MEDICARE, MEDICAID, SELFPAY ==
--- OUTSIDE RECORDS SUMMARY | 2023-09-01 09:55 | XMS_ITS ---
Author Organization [facility] Address [address] [place] [id number] Care Team Providers Care Sales And Marketing Assistant Name Role Phone Luna KHAN, Reginald Primary Care Provider Unavailab joclein Nielsen Jr, Dann Unavailable [phone] REASON FOR VISIT Patient presents today for TROUBLE SWALLOWING/INCREASE VOMITING /HOSP F/U Encounters Encounter Location Date Provider Diagnosis [facility] [address] [place] [phone] 09/01/2023 Dann Nielsen Jr Plan Of Treatment No Information Progress Notes * GRISELDA GODDARDDOB: [birth year] (79 yo F)Acc No.[id number]:09/01/2023 Progress Notes Patient: GRISELDA BENITEZ Provider: Jad Nielsen MD :1945 A ge:78 Y S ex:Female Date:09/01/2023 Address:[address] [place], [place] [id number] Pcp:Reginald Carrasco MD Subjective: * Chief Complaints: * 1 . Patient presents today for TROUBLE SWALLOWING/INCREASE VOMITING /HOSP F/U. * Medical History: Objective: * Vitals: Assessment: Plan: * Treatment: * * The named appointment provid er may or may not be the originator of this progress note, and it is not deemed complete until electronically signed by the appointment provider. Sign off status: Pending * Provider: Jad Nielsen MD Date: 0 09/01/2023 Generated for Printi ng/Faxing/eTransmitting on: 11:29 AM EDT
--- NOTE | ~2025-01-29 | XR_ITS ---
EXAMINATION: XR CHEST CLINICAL INFORMATION: cough COMPARISON: June 05, 2022 TECHNIQUE: Frontal view of the chest was obtained. FINDINGS: There is mild elevation of the left hemidiaphragm and minimal left basilar density slightly increased from the prior. There are coarse markings in the mid and lower right lung zone. Atelectasis minimally tents the right hemidiaphragm. Unchanged Nodular density in the lateral aspect of the middle third left lung zone is probably calcified granuloma. XR/XR chest 1V IMPRESSION: Bibasilar atelectasis, slightly increased from the prior. Electronically signed by: Gunnar Alejo MD 01/29/2025 02:28 PM EDT RP
--- NOTE | ~2025-01-29 | CT_ITS ---
EXAMINATION: CT ABDOMEN PELVIS WITH IV CONTRAST HISTORY: vomiting, r/o SBO COMPARISON: Comparison is made with the prior examination dated 06/05/2022. TECHNIQUE: CT scan of the abdomen and pelvis was performed following administration of 85 mL Omnipaque 350 using standard departmental protocol. Coronal and sagittal reformatted images were generated and reviewed. The patient received oral contrast material. This CT exam was performed with one or more of the following dose reduction techniques: automated exposure control, adjustment of the mA and/or kV according to patient size, use of iterative reconstruction technique. DLP: 763 mGy-cm FINDINGS: LOWER CHEST: The visualized lung bases are clear. There are small bilateral pleural effusions. CARDIOVASCULATURE: The heart is normal in size. There is no pericardial effusion. LIVER: The liver is normal in size and contour. No liver mass is identified. The hepatic and portal veins are patent. GALLBLADDER / BILE DUCTS: The gallbladder is distended, without evidence of calcified stones. There is no intra or extrahepatic biliary ductal dilatation. SPLEEN: The spleen is normal in size. No focal splenic lesion is identified. PANCREAS: The pancreas is unremarkable in appearance. ADRENAL GLANDS: Within normal limits. KIDNEYS/RETROPERITONEUM: No renal calculi are identified. There is no hydronephrosis. No renal masses are identified. LYMPH NODES: No abdominal or pelvic lymphadenopathy. VASCULATURE: The abdominal aorta is normal in caliber. MESENTERY/PERITONEUM: No free fluid. No masses. There is no free intraperitoneal gas. STOMACH: The stomach is unremarkable. SMALL BOWEL: The small bowel is normal in caliber. COLON: There is a very large amount of stool throughout the colon. APPENDIX: Normal. URINARY BLADDER/PELVIC ORGANS: The urinary bladder is unremarkable. There are multiple calcified uterine masses consistent with fibroids. 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 CT/CT abdomen pelvis w IV con IMPRESSION: Very large amount of stool throughout the colon. No evidence of small bowel obstruction. Electronically signed by: Rafael Gibson MD 01/29/2025 12:59 PM EDT
[2025-01-29 09:45] VITALS: BP 141/92; BP 153/86; PULSE 105; PULSE 107; RESP 15; TEMP 36.8; O2SAT 94; O2SAT 96; BMI 26.8
[2025-01-29 09:58] LABS: MANUAL DIFF FLAG NO
[2025-01-29 10:06] LABS: INTERNATIONAL NORM RATIO 1.0 (0.9-1.1); Prothrombin Time 11.2 SEC (10.9-12.4)
[2025-01-29 10:08] LABS: Hematocrit 46.5 % (37.0-47.0); Hemoglobin 15.1 g/dl (12.0-16.0); Imm Gran Abs Auto 0.04 X10*3/uL (0.00-0.03); Imm Gran Pct Auto 0.4 % (0.0-0.4); Lymphocytes Absolute Auto 0.8 X10*3/uL (1.2-4.9); Mean Corpuscular HGB Conc 32.5 g/dl (31.0-35.0); Mean Corpuscular Hemoglobin 29.5 pg (27.0-33.0); Mean Corpuscular Volume 90.8 fL (80.0-98.0); NRBC Abs Auto 0.000 X10*3/uL (0.0-0.012); NRBC Pct Auto 0.0 /100WBC (0.0-0.2); Platelet Count 265 X10*3/uL (160-400); Red Blood Count 5.12 X10*6/uL (4.20-5.50); White Blood Count 10.4 X10*3/uL (4.8-10.8)
[2025-01-29 10:15] LABS: Alanine Aminotransferase 16 U/L (0-31); Albumin Level 4.1 g/dL (3.5-5.0); Alkaline Phosphatase 238 U/L (39-117); Anion Gap 15 (12-20); Aspartate Amino Transferase 18 U/L (5-31); Blood Urea Nitrogen 22 mg/dL (9-16); Calcium 8.7 mg/dL (8.4-10.2); Carbon Dioxide 30 mmol/L (22-29); Chloride 100 mmol/L (96-108); Creatinine Clr Calc Pharmacy 41.3; Estimated Glomerular Filt Rate > 60; Magnesium 2.2 mg/dL (1.6-2.6); Potassium 4.2 mmol/L (3.3-5.1); Sodium 141 mmol/L (135-145); Total Protein 7.3 g/dL (6.5-8.0)
[2025-01-29 10:20] VITALS: BP 157/66; PULSE 105; RESP 24; O2SAT 97
--- NOTE | 2025-01-29 10:21 | PC.NURSE ---
Pt resting quietly, no complaints at this time. No vomiting since arrival
--- NOTE | 2025-01-29 10:57 | ED.GENADULT ---
HPI - General Adult General Chief complaint: Nausea/Vomiting/Diarrhea Stated complaint: COFFEE GROUND VOMITING LAST NIGHT FROM [facility] Time Seen by Provider: 01/29/25 10:57 History of Present Illness ED Provider: Mariaelena STARKEY narrative: The patient is a 79-year-old woman who lives at the [facility]. She has a history of dementia and chronic schizophrenia. According to staff at the facility she was well yesterday but during the night last night vomited several times. This morning at 07:00 the staff felt that she vomited coffee-grounds. At that point they called 911 and she was brought to the hospital. The patient has not had a fever at the alf. The vital signs this morning were a temperature of 98 degrees, heart rate is 75, and a blood pressure 130/78. There has been no melena or hematochezia. The patient is minimally verbal. There was no apparent complaint of abdominal pain. The patient had a flu and COVID test sent at the alf that were negative. Related Data Home Medications ?Medication ?Instructions ?Recorded ?Confirmed acetaminophen 325 mg tablet 650 mg PO BID PRN Pain 03/31/22 06/05/22 benztropine 1 mg tablet 1 mg PO BEDTIME 03/31/22 06/05/22 calcium 600 mg (as 1 tab PO DAILY@1300 03/31/22 06/05/22 carbonate)-vitamin D3 10 mcg (400 unit) tablet (Calcium 600 + D(3)) ferrous gluconate 324 mg (37.5 mg 324 mg PO Q48H 03/31/22 06/05/22 iron) tablet fluticasone 500 mcg-salmeterol 50 1 puff inhalation BID 03/31/22 06/05/22 mcg/dose blistr powdr for inhalation haloperidol 10 mg tablet 10 mg PO BEDTIME 03/31/22 06/05/22 magnesium oxide 400 mg PO BEDTIME 03/31/22 06/05/22 pantoprazole 40 mg tablet,delayed 40 tab PO DAILY@0630,1630 03/31/22 06/05/22 release polyethylene glycol 3350 17 gram 17 g PO DAILY 03/31/22 06/05/22 oral powder packet quetiapine 100 mg tablet (Seroquel) 100 mg PO BEDTIME 03/31/22 06/05/22 quetiapine 400 mg tablet 400 mg PO BEDTIME 03/31/22 06/05/22 tiotropium bromide 18 mcg capsule 1 cap inhalation DAILY 03/31/22 06/05/22 with inhalation device (Spiriva with HandiHaler) trazodone 100 mg tablet 100 mg PO BEDTIME 03/31/22 06/05/22 lactase 3,000 unit tablet 3,000 unit PO QIDWMHS 06/05/22 06/05/22 nystatin 100,000 unit/gram topical 1 appl topical Q4H PRN Itching 06/05/22 06/05/22 cream Allergies Allergy/AdvReac Type Severity Reaction Status Date / Time lactulose Allergy Unknown Verified 01/29/25 09:48 orange juice Allergy Unknown Verified 01/29/25 09:48 Review of Systems Review of Systems: Yes all other systems are reviewed and are negative [facility] Past Medical History Medical History (Updated 01/29/25 @ 14:42 by Cal Ferrell MD) GERD (gastroesophageal reflux disease) Adjustment disorder Hypertension Osteoporosis Type 2 diabetes mellitus Hypo-osmolar hyponatremia COPD (chronic obstructive pulmonary disease) COVID-19 Schizoaffective disorder Encephalopathy chronic CVA (cerebral vascular accident) Dysphasia Family History Family History (Updated 06/05/22 @ 17:44 by YARA Kim) Mother CVD (cardiovascular disease) Father CVD (cardiovascular disease) Hypertension Social History Social History Household Members: Other Housing: [facility] Alcohol intake: never Patient Tobacco Use Status: Tobacco use Unknown Advance Directives: Yes Advance Directives on File: Yes Advance Directives Date on File: 06/28/21 service: No Current occupational status: retired Physical Exam ED Vital Signs: Vital Signs - 24 hr 01/29/25 09:45 01/29/25 10:20 01/29/25 13:52 Temperature 98.2 F 98.2 F Pulse Rate 105 H 105 H 103 H Respiratory Rate 15 24 H 20 Blood Pressure 153/86 H 157/66 H 149/79 H Pulse Oximetry 94 97 96 Oxygen Delivery Method Room Air Room Air Room Air 01/29/25 13:53 01/29/25 14:50 Temperature 98.6 F 98.6 F Pulse Rate 104 H 104 H Respiratory Rate 19 19 Blood Pressure 149/79 H 149/79 H Pulse Oximetry 97 97 Oxygen Delivery Method Room Air Room Air BMI result Body Mass Index 26.8 Const Other: The patient is a chronically ill-appearing 79-year-old woman who was awake and alert. She does not seem in obvious pain or discomfort. HENMT Other: There is a small amount of dried material around her nose and mouth that could represent dark residue of emesis. There was no abnormal material in the mouth. Mucous membranes are moist. Airway is clear. Eyes Other: Pupils are round equal, conjunctivae are clear, extraocular movements intact Neck Neck: Yes normal visual inspection, Yes full ROM and Yes no JVD Resp Effort & Inspection: normal respiratory effort Auscultation: clear to auscultation bilaterally Cardio Rate: regular rate Rhythm: regular rhythm Heart sounds: S1 normal heart sound present and S2 normal heart sound present GI Other: The abdomen is soft and seems nontender. Rectal exam revealed normal rectal tone. There was pale brown stool in the rectal vault which was not melenic and which I tested at the bedside and was heme negative. Skin Other: Skin is pale and dry Neuro Other: The patient is awake and alert. She seems to understand what I say but she does not seem to be verbal. I think this is her baseline. Eye movements are intact, her face is symmetrical, she moves her extremities symmetrically. I think she is at her neurological baseline. Extrem Other: No peripheral edema Medications Administered Discontinued Medications Generic Name Dose Route Start Last Admin Trade Name Freq PRN Reason Stop Dose Admin Sodium Chloride 1,000 mls @ 999 mls/hr 01/29/25 11:30 01/29/25 14:48 Ns IV 01/29/25 12:30 Infused .Q1H1M NADIA Infusion Iohexol 100 ml 01/29/25 12:21 01/29/25 12:21 Iohexol 350 Mg/Ml 100 Ml Infus..Btl IV 01/29/25 12:22 85 ml ONCE ONE Administration Pantoprazole Sodium 80 mg 01/29/25 11:20 01/29/25 13:16 Pantoprazole Sodium 40 Mg/10 Ml Vial IVPUSH 01/29/25 11:21 80 mg ONCE ONE Administration Medical Decision Making Medical Decision Making MDM Narrative: The patient is a 79-year-old woman with chronic mental illness and dementia who lives chronically at a local nursing facility. She has a history of dementia and chronic schizophrenia. She also has a history of COPD. Apparently she was vomiting last night and this morning the staff was concerned that there might be coffee-ground emesis. She has no signs of melena. Her stool is pale brown and heme-negative by might test at the bedside. Additionally her CBC shows a high hemoglobin. Her hemoglobin is 15.1 today. Her last blood tests were over 2 years ago when her hemoglobin was more in the range of 10 or 11. Her metabolic panel shows a creatinine of 0.9 with a BUN of 22. Given the lack of any drop in hemoglobin and no very remarkable rise in BUN my suspicion for an acute upper GI bleed at this point is not very high. She is not on anticoagulation. We will obtain a CT of her abdomen and give her hydration. She was observed. She had no vomiting in the emergency department. The CT scan shows no acute findings although there is a lot of stool in her colon. Her white count is 10.4. She is 86% neutrophils. Her C-reactive protein is 0.75. She tolerated oral intake. She said that she was feeling much better. I think she may return to her alf. I do not know if this was a simple GI bug but I do not think she is acutely ill in a manner which would require additional treatment in the emergency department or hospitalization.. She should return if worse. Lab Data 01/29/25 09:53 01/29/25 09:53 Labs: Lab Results 01/29/25 01/29/25 Range/Units 09:53 11:13 WBC 10.4 (4.8-10.8) X10*3/uL RBC 5.12 D (4.20-5.50) X10*6/uL Hgb 15.1 D (12.0-16.0) g/dl Hct 46.5 D (37.0-47.0) % MCV 90.8 (80.0-98.0) fL MCH 29.5 (27.0-33.0) pg MCHC 32.5 (31.0-35.0) g/dl RDW 12.6 (11.0-16.0) % Plt Count 265 (160-400) X10*3/uL MPV 8.7 L (9.4-12.3) fL Immature Gran % (Auto) 0.4 (0.0-0.4) % Neut % (Auto) 86.4 H (45-73) % Lymph % (Auto) 7.8 L (20-40) % Sequoyah % (Auto) 4.9 (2-11) % Eos % (Auto) 0.1 (0-4) % Baso % (Auto) 0.4 (0-2) % Lymph # (Auto) 0.8 L (1.2-4.9) X10*3/uL Sequoyah # (Auto) 0.5 (0.1-1.2) X10*3/uL Eos # (Auto) 0.0 (0.0-0.4) X10*3/uL Baso # (Auto) 0.0 (0.0-0.2) X10*3/uL Abs Immat Gran (auto) 0.04 H (0.00-0.03) X10*3/uL Absolute Neuts (auto) 9.0 H (2.0-8.3) x10*3/uL Absolute Nucleated RBC 0.000 (0.0-0.012) X10*3/uL Nucleated RBC % (auto) 0.0 (0.0-0.2) /100WBC PT 11.2 (10.9-12.4) SEC INR 1.0 (0.9-1.1) Sodium 141 (135-145) mmol/L Potassium 4.2 (3.3-5.1) mmol/L Chloride 100 (96-108) mmol/L Carbon Dioxide 30 H (22-29) mmol/L Anion Gap 15 (12-20) BUN 22 H (9-16) mg/dL Creatinine 0.90 (0.5-1.4) mg/dL Estim Creat Clear Calc 41.3 Estimated GFR > 60 Random Glucose 158 H (60-115) mg/dL Calcium 8.7 D (8.4-10.2) mg/dL Magnesium 2.2 (1.6-2.6) mg/dL Total Bilirubin 0.2 (0.0-1.0) mg/dL AST 18 (5-31) U/L ALT 16 (0-31) U/L Alkaline Phosphatase 238 H (39-117) U/L C-Reactive Protein 0.75 H (< or = 0.50) mg/dL Total Protein 7.3 (6.5-8.0) g/dL Albumin 4.1 (3.5-5.0) g/dL Stool Occult Blood NEGATIVE (NEGATIVE) Blood Type O Positive Antibody Screen NEGATIVE Discharge Plan Discharge Clinical Impression: Vomiting Patient Disposition: Home, Self-Care Additional Instructions: There does not seem to be any evidence of an upper GI bleed. There does not seem to be any ongoing evidence of vomiting here in the emergency room. A CAT scan of her abdomen shows that she has a lot of stool in her colon but no other acute problems. Please continue her regular medications. Follow up with your regular doctor. Return to the emergency room if significantly worse. Prescriptions: No Action lactase 3,000 unit Tablet 3,000 unit PO QIDWMHS Rx Instructions: administer with meals and/or snacks nystatin 100,000 unit/gram Cream 1 appl TOPICAL Q4H PRN (Reason: Itching) acetaminophen 325 mg Tablet 650 mg PO BID PRN (Reason: Pain) polyethylene glycol 3350 17 gram Powder In Packet 17 g PO DAILY Rx Instructions: HOLD FOR LOOSE STOOLS quetiapine [Seroquel] 100 mg Tablet 100 mg PO BEDTIME trazodone 100 mg tablet 100 mg PO BEDTIME pantoprazole 40 mg tablet,delayed release (DR/EC) 40 tab PO DAILY@0630,1630 fluticasone propion-salmeterol 500-50 mcg/dose blister with device 1 puff inhalation BID haloperidol 10 mg tablet 10 mg PO BEDTIME benztropine 1 mg tablet 1 mg PO BEDTIME Spiriva with HandiHaler 18 mcg capsule, w/inhalation device 1 cap inhalation DAILY quetiapine 400 mg tablet 400 mg PO BEDTIME calcium carbonate-vitamin D3 [Calcium 600 + D(3)] 600 mg-10 mcg (400 unit) Tablet 1 tab PO DAILY@1300 ferrous gluconate 324 mg (37.5 mg iron) Tablet 324 mg PO Q48H Rx Instructions: GIVE WITH LUNCH magnesium oxide 400 mg magnesium Tablet 400 mg PO BEDTIME Interventions: ED Discharge Assessment Last Done: 01/29/25 14:50 Print Language: Hebrew
[2025-01-29 11:26] LABS: OBS Int Ctl Valid YES; OBS1 NEGATIVE (NEGATIVE)
--- OUTSIDE RECORDS SUMMARY | 2025-01-29 11:29 | XMS_ITS | Encounter Summary ---
Author Organization [facility] Address [address] [address] [place] [phone] Phone Care Team Providers Care Track Inspector Name Role Phone Yadi Neil Primary Care Provider [phone]- [phone] Encounter Details Date Type Department Care Team (Late st Contact Info) Description 02/21/2019 Ancillary Orders Virtual Department [address] [place] [address] Yadi Neil PA [address] [place] [address] [phone] Breast cancer screening by mammogram Social History Tobacco Use Types Packs/Day Years Used Date Smoking Tobacco: Never Smokeless Tobacco: Never Alcohol Use Standard Drinks/Week Comments No 0 (1 standard drink = 0.6 oz pur e alcohol) Comments Unknown Sex and Gender Information Value Date Recorded Sex Assigned at Female 08/15/2017 9:01 AM EDT Legal Sex Female 10:06 PM EDT Gender Identity Female 08/15/2017 9:01 AM EDT Sexual Orientation Straight 08/15/2017 9: 01 AM EDT documented as of this encounter Plan of Treatment Not on file documented as of this encounter Visit Diagnoses Diagnosis Breast cancer screening by mammogram documented in this encounter Additional Health Concerns Infection Onset Date Last Indicated Resolved Time CoV-Exposed Comment:SNF dc 03/04 full PPE for 14 days 03/05/2020 03/05/2020 03/19/2020 1:[address] CoV-Risk 05/12/2020 05/12/2020 05/22/2020 1:25 AM EST documented as of this encounter Care Teams Track Inspector Relationship Specialty Start Date End Date Yadi Neil PA [address] [place] [address] [phone] PCP - General Car Rental Service Attendant 12/21/18 documented as of this encounter Additional Source Comments The information contained in this document represents components of the legal health record. It is not the complete legal health record.[facility]
--- OUTSIDE RECORDS SUMMARY | 2025-01-29 11:29 | XMS_ITS | Encounter Summary ---
Author Organization [facility] Address [address] [facility] [address] [place] [phone] Phone Care Team Providers Care Houseman Name Role Phone Yadi Neil Primary Care Provider [phone]- [phone] Encounter Details Date Type Department Care Team (Latest Contact Info) Description 11/02/2023 Transcribe Orders Virtual Department [address] [place] [phone] Terrance Barr MD [address] [place] [address] [email or web address] Thyrotoxicosis without thyroid storm, unspecified thyrotoxicosis type (Primary Dx) Social History Tobacco Use Types Packs/Day Years Used Date Smoking Tobacco: Unknown Smokeless Tobacco: Never Alcohol Use Standard Drinks/Week Comments No 0 (1 standard drink = 0.6 oz pur e alcohol) Education Answer Date Recorded Are you interested in more education? Not on sia e 08/13/2022 Are you concerned about learning? Not on file 08/13/2022 No 08/13/2022 No 08/13/2022 Digital Access Answer Date Recorded No 09/11/2022 No 09/11/2022 No 09/11/2022 Reliable internet access at home? Not on file 09/11/2022 Device with a working camera? Not on file Comments Unknown Sex and Gender Information Value Date Recorded Sex Assigned at Female 08/15/2017 9:01 AM EDT Legal Sex Female 10:06 PM EDT Gender Identity Female 08/15/2017 9:01 AM EDT Sexual Orientation Straight 08/15/2017 9: 01 AM EDT documented as of this encounter Plan of Treatment Not on file documented as of this encounter Results * US Thyroid Gland (11/09/2023 12:23 PM EDT) Anatomical Region Laterality Modality Neck, Head, Chest Ultrasound 11/09/2023 2:13 PM EDT Impressions 11/09/2023 2:33 PM EDT Bilateral thyroid nodules, which can be followed up in one year. Glossary of terms and other information on TI-RADS (Thyroid Imaging Reporting and Data System) can be found at [email or web address]-[email or web address] Narrative 11/09/2023 2:33 PM EDT US THYROID GLAND Referring clinician's provided indication for this examination in [facility]: Outside Radiology Order; thyrotoxicosis TECHNIQUE: Ultrasound of the thyroid. COMPARISON: CT CHEST PULMONARY ANGIOGRAM (ACUTE) FINDINGS: Isthmus: The isthmus is 0.2 cm thick. Right thyroid: * The right lobe measures 4.2 cm in sagittal dimension. * A 1.1 cm solid, isoechoic lower gland nodule with macrocalcifications. TR 4, * 1.3 cm solid, isoechoic nodule with internal punctate echogenic foci (clip 106, frame 122 of 218 and 109 of 219). TR 4. * Multiple additional subcentimeter cystic and solid, isoechoic nodules. * A 1.3 cm No right lymphadenopathy. Left thyroid: * The left lobe measures 4.5 cm in sagittal dimension. * A 1.3 cm mostly solid, isoechoic mid gland nodule. TR 3 * Multiple additional subcentimeter cystic and solid, isoechoic nodules. * No left lymphadenopathy. Procedure Note Elena Morrison MD - 11/09/2023 US THYROID GLAND Referring clinician's provided indication for this examination in [facility]:Outside Radiology Order; thyrotoxicosis TECHNIQUE: Ultrasound of the thyroid. COMPARISON: CT CHEST PULMONARY ANGIOGRAM (ACUTE) FINDINGS: Isthmus: The isthmus is 0.2 cm thick. Right thyroid: * The right lobe measures 4.2 cm in sagittal dimension. * A 1.1 cm solid, isoechoic lower gland nodule with macrocalcifications.TR 4, * 1.3 cm solid, isoechoic nodule with internal punctate echogenic foci(clip 106, frame 122 of 218 and 109 of 219). TR 4. * Multiple additional subcentimeter cystic and solid, isoechoicnodules. * A 1.3 cm No right lymphadenopathy. Left thyroid: * The left lobe measures 4.5 cm in sagittal dimension. * A 1.3 cm mostly solid, isoechoic mid gland nodule. TR 3 * Multiple additional subcentimeter cystic and solid, isoechoicnodules. * No left lymphadenopathy. IMPRESSION: Bilateral thyroid nodules, which can be followed up in one year. Glossary of terms and other information on TI-RADS (Thyroid ImagingReporting and Data System) can be found [email or web address]-[email or web address] us Terrance Barr MD IMG US THYROID Final Resul t documented in this encounter Visit Diagnoses Diagnosis Thyrotoxicosis without thyroid storm, unspecified thyrotoxicosis type- Primary Thyrotoxicosis without thyroid storm, unspecified thyrotoxicosis type documented in this encounter Care Teams Houseman Relationship Specialty Start Date End Date Yadi Neil PA [address] [place] [phone] PCP - General Emergency Veterinary Assistant 12/21/18 documented as of this encounter Additional Source Comments The information contained in this document represents components of the legal health record. It is not the complete legal health record.[facility]
--- OUTSIDE RECORDS SUMMARY | 2025-01-29 11:29 | XMS_ITS | Encounter Summary ---
Author Organization [facility] Address [address] [place] [address] Care Team Providers Care Shipping And Receiving Name Role Phone Reginald Carrasco MD Primary Care Provider [phone] Encounter Details Date Type Department Care Team (Late st Contact Info) Description 05/19/2024 Lab Requisition [facility] - Main Lab 299 [facility] [place] [address] Reginald Carrasco MD 38 [facility] [address] [place], [address] Hyperlipidemia, unspecified; Pure hyperglyceridemia; Type 2 diabetes mellitus without complications (CMS/HCC V24, CMS/HCC V28); Essential (primary) hypertension; Other jail (current) drug therapy; Vitamin D deficiency, unspecified Social History Tobacco Use Types Packs/Day Years Used Date Smoking Tobacco: Never Assessed Comments Unknown Sex and Gender Information Value Date Recorded Sex Assigned at Not on file Legal Sex Female 8:49 AM EST Gender Identity Not on file Sexual Orientation Not on file documented as of this encounter Plan of Treatment Not on file documented as of this encounter Procedures Procedure Name Priority Date/Time Associated Diagnosis Comments VITAMIN D 25 HYDROXY Routine 05/21/2024 5:19 AM EST Hyperlipidemia, unspecified Pure hyperglyceridemia Type 2 diabetes mellitus without complications (CMS/HCC) Essential (primary) hypertension Other jail (current) drug therapy Vitamin D deficiency, unspecified TRIIODOTHYRONINE FREE Routine 05/21/2024 5:19 AM EST Hyperlipidemia, unspecified Pure hyperglyceridemia Type 2 diabetes mellitus without complications (CMS/HCC) Essential (primary) hypertension Other continuous churn buttermaker (current) drug therapy Vitamin D deficiency, unspecified THYROID STIMULATING HORMONE Routine 05/21/2024 5:19 AM EST Hyperlipidemia, unspecified Pure hyperglyceridemia Type 2 diabetes mellitus without complications (CMS/HCC) Essential (primary) hypertension Other continuous churn buttermaker (current) drug therapy Vitamin D deficiency, unspecified THYROXINE FREE Routine 05/21/2024 5:19 AM EST Hyperlipidemia, unspecified Pure hyperglyceridemia Type 2 diabetes mellitus without complications (CMS/HCC) Essential (primary) hypertension Other continuous churn buttermaker (current) drug therapy Vitamin D deficiency, unspecified PARATHYROID HORMONE INTACT Routine 05/21/2024 5:19 AM EST Hyperlipidemia, unspecified Pure hyperglyceridemia Type 2 diabetes mellitus without complications (CMS/HCC) Essential (primary) hypertension Other continuous churn buttermaker (current) drug therapy Vitamin D deficiency, unspecified MAGNESIUM Routine 05/21/2024 5:19 AM EST Hyperlipidemia, unspecified Pure hyperglyceridemia Type 2 diabetes mellitus without complications (CMS/HCC) Essential (primary) hypertension Other jail (current) drug therapy Vitamin D deficiency, unspecified HEPATIC FUNCTION PANEL Routine 5:19 AM EST Hyperlipidemia, unspecified Pure hyperglyceridemia Type 2 diabetes mellitus without complications (CMS/HCC) Essential (primary) hypertension Other jail (current) drug therapy Vitamin D deficiency, unspecified RENAL FUNCTION PANEL Routine 05/21/2024 5:19 AM EST Hyperlipidemia, unspecified Pure hyperglyceridemia Type 2 diabetes mellitus without complications (CMS/HCC) Essential (primary) hypertension Other continuous churn buttermaker (current) drug therapy Vitamin D deficiency, unspecified documented in this encounter Results * Triiodothyronine free (05/21/2024 5:19 AM EST) T3, Free 247 230 - 420 pcg/dL LAB CHEMISTRY METHOD 05/21/2024 1:26 PM EST [facility] ([facility]) [facility] Blood Venous blood specimen / Unknown 05/21/2024 5:19 AM EST 05/21/2024 11:26 AM EST Reginald Carrasco MD LAB BLOOD ORDERABLES Final Resul t Performing Organization Address [facility]/ZIP Co de Phone Number [facility] [address] [place] [address], [place] [phone] * Thyroxine free (05/21/2024 5:19 AM EST) Free T4 0.79 0.70 - 1.80 ng/dL LAB CHEMISTRY METHOD 05/21/2024 1:26 PM EST [facility] Blood Venous blood specimen / Unknown 05/21/2024 5:19 AM EST 05/21/2024 11:26 AM EST Reginald Carrasco MD LAB BLOOD ORDERABLES Final Resul t Performing Organization Address [facility] de Phone Number [facility] [address] [place] [address], * (ABNORMAL) Thyroid stimulating hormone (05/21/2024 5:19 AM EST) TSH 6.16(H) 0.40 - 4.00 mcIU/mL LAB CHEMISTRY METHOD 05/21/2024 1:26 PM EST [facility] Blood Venous blood specimen / Unknown 05/21/2024 5:19 AM EST 05/21/2024 11:26 AM EST Reginald Carrasco MD LAB BLOOD ORDERABLES Final Resul t Performing Organization Address [facility] Co de Phone Number [facility] [address] [place] [address], [place] [phone] * (ABNORMAL) Hepatic function panel (05/21/2024 5:19 AM EST) Total Protein 6.5 6.0 - 8.0 g/dL LAB CHEMISTRY METHOD 05/21/2024 2:15 PM EST [facility] Albumin 3.4 3.2 - 5.0 g/dL LAB CHEMISTRY METHOD 05/21/2024 2:15 PM [facility] Total Bilirubin 0.5 0.0 - 1.4 mg/dL LAB CHEMISTRY METHOD 05/21/2024 2:15 PM [facility] Bilirubin, Direct 0.1 0.0 - 0.3 mg/dL LAB CHEMISTRY METHOD 05/21/2024 2:15 PM [facility] Comment:Results verified by repeat testing Bilirubin, Indirect 0.4 0.0 - 1.1 mg/dL LAB CHEMISTRY METHOD 05/21/2024 2:15 PM [facility] ALT (SGPT) 22 10 - 60 unit/L LAB CHEMISTRY METHOD 05/21/2024 2:15 PM [facility] Comment:Results verified by repeat testing AST (SGOT) 11 10 - 42 unit/L LAB CHEMISTRY METHOD 05/21/2024 2:15 PM [facility] Comment:Results verified by repeat testing Alkaline Phosphatase 236(H) 42 - 121 unit/L LAB CHEMISTRY METHOD 05/21/2024 2:15 PM [facility] Blood Venous blood specimen / Unknown 05/21/2024 5:19 AM EST 05/21/2024 11:26 AM EST us Reginald Carrasco MD LAB BLOOD ORDERABLES Final Resul t [facility] [address] [place] [address], [place] [phone] * Renal function panel (05/21/2024 5:19 AM EST) Sodium 141 133 - 145 mmol/L LAB CHEMISTRY METHOD 05/21/2024 1:36 PM [facility] Potassium 3.9 3.5 - 5.5 mmol/L LAB CHEMISTRY METHOD 05/21/2024 1:36 PM [facility] Chloride 106 96 - 110 mmol/L LAB CHEMISTRY METHOD 05/21/2024 1:36 PM [facility] CO2 25 21 - 32 mmol/L LAB CHEMISTRY METHOD 05/21/2024 1:36 PM [facility] Anion Gap 10 3 - 11 LAB CHEMISTRY METHOD 05/21/2024 1:36 PM [facility] Glucose 88 70 - 100 mg/dL LAB CHEMISTRY METHOD 05/21/2024 1:36 PM [facility] BUN 16 5 - 25 mg/dL LAB CHEMISTRY METHOD 05/21/2024 1:36 PM [facility] Creatinine 0.95 0.50 - 1.10 mg/dL LAB CHEMISTRY METHOD 05/21/2024 1:36 PM [facility] eGFR 62 >=60 mL/min/1. 73m2 LAB CHEMISTRY METHOD 05/21/2024 1:36 PM [facility] Comment:Calculation based on the Chronic Kidney Disease Epidemiology Collaboration (CKD-EPI) equation refit without adjustment for race. BUN/Creatinine Ratio 16.8 LAB CHEMISTRY METHOD 05/21/2024 1:36 PM [facility] Albumin 3.4 3.2 - 5.0 g/dL LAB CHEMISTRY METHOD 05/21/2024 1:36 PM [facility] Calcium 8.6 8.5 - 10.5 mg/dL LAB CHEMISTRY METHOD 05/21/2024 1:36 PM [facility] Phosphorus 3.2 2.5 - 4.5 mg/dL LAB CHEMISTRY METHOD 05/21/2024 1:36 PM [facility] Blood Venous blood specimen / Unknown 05/21/2024 5:19 AM EST 05/21/2024 11:26 AM EST us Reginald Carrasco MD LAB BLOOD ORDERABLES Final Resul t [facility] [address] [place] [address], [place] [phone] * (ABNORMAL) Vitamin D 25 hydroxy (05/21/2024 5:19 AM EST) Pathologist [facility] Vit D, 25-Hydroxy 18.3(L) 30.0 - 80.0 ng/mL LAB CHEMISTRY METHOD 05/21/2024 1:25 PM EST [facility] Blood Venous blood specimen / Unknown 05/21/2024 5:19 AM EST 05/21/2024 11:26 AM EST Reginald Carrasco MD LAB BLOOD ORDERABLES Final Resul t Performing Organization Address City/[facility]/ZIP Co de Phone Number [facility] [address] [place] [address], [place] [phone] * (ABNORMAL) Parathyroid hormone intact (05/21/2024 5:19 AM EST) [facility] PTH 94.1(H) 18.5 - 88.0 pcg/mL LAB CHEMISTRY METHOD 05/21/2024 1:34 PM EST [facility] Blood Venous blood specimen / Unknown 05/21/2024 5:19 AM EST 05/21/2024 11:26 AM EST us Reginald Carrasco MD LAB BLOOD ORDERABLES Final Resul t [facility] [address] [place] [address], [place] [phone] * Magnesium (05/21/2024 5:19 AM EST) [facility] Magnesium 2.2 1.9 - 2.6 mg/dL LAB CHEMISTRY METHOD 05/21/2024 1:27 PM EST [facility] Blood Venous blood specimen / Unknown 05/21/2024 5:19 AM EST 05/21/2024 11:26 AM EST us Reginald Carrasco MD LAB BLOOD ORDERABLES Final Resul t [facility] ([facility]) [facility] [address] [place] [address], documented in this encounter Visit Diagnoses Diagnosis Hyperlipidemia, unspecified Pure hyperglyceridemia Type 2 diabetes mellitus without complications (CMS/HCC V24, CMS/HCC V28) Essential (primary) hypertension Unspecified essential hypertension Other continuous churn buttermaker (current) drug therapy Vitamin D deficiency, unspecified documented in this encounter Care Teams Shipping And Receiving Relationship Specialty Start Date End Date Reginald Carrasco MD [address] [place] [address], [phone] PCP - General Family Medicine 03/12/24 documented as of this encounter
--- OUTSIDE RECORDS SUMMARY | 2025-01-29 11:29 | XMS_ITS | Encounter Summary ---
Author Organization [facility] Address [address] [place] [address] Care Team Providers Care Re Dye Hand Name Role Phone Reginald Carrasco MD Primary Care Provider [phone] Encounter Details Date Type Department Care Team (Late st Contact Info) Description 06/12/2024 Lab Requisition [facility] - Main Lab [address] [facility] [place] [address] Reginald Carrasco MD 38 [facility] [address] [place], [address] Type 2 diabetes mellitus without complications (CMS/HCC V24, CMS/HCC V28); Other mcfp (current) drug therapy Social History Tobacco Use Types Packs/Day Years [...] Procedure Name Priority Date/Time Associated Diagnosis Comments LIPID PANEL WITH REFLEX TO DIRECT LDL Routine 06/13/2024 6:03 AM EST Type 2 diabetes mellitus without complications (CMS/HCC) Other mcfp (current) drug therapy COMPLETE BLOOD COUNT Routine 06/13/2024 6:03 AM EST Type 2 diabetes mellitus without complications (CMS/HCC) Other marine oil terminal superintendent (current) drug therapy THYROID STIMULATING HORMONE Routine 06/13/2024 6:03 AM EST Type 2 diabetes mellitus without complications (CMS/HCC) Other marine oil terminal superintendent (current) drug therapy HEMOGLOBIN A1C Routine 06/13/2024 6:03 AM EST Type 2 diabetes mellitus without complications (CMS/HCC) Other m[facility]p (current) drug therapy FOLATE Routine 06/13/2024 6:03 AM EST Type 2 diabetes mellitus without complications (CMS/HCC) Other [facility]p (current) drug therapy VITAMIN B12 Routine 06/13/2024 6:03 AM EST Type 2 diabetes mellitus without complications (CMS/HCC) Other marine oil terminal superintendent (current) drug therapy COMPREHENSIVE METABOLIC PANEL Routine 06/13/2024 6:03 AM EST Type 2 diabetes mellitus without complications (CMS/HCC) Other mcfp (current) drug therapy documented in this encounter Results * (ABNORMAL) Folate (06/13/2024 6:03 AM EST) Folate >20.0(H) 2.8 - 17.0 ng/ml LAB CHEMISTRY METHOD 06/13/2024 11:26 AM EST [facility] Blood Venous blood specimen / Unknown Venipuncture / Unknown 06/13/2024 6:03 AM EST 06/13/2024 9:06 AM EST us Reginald Carrasco MD LAB BLOOD ORDERABLES Final Resul t Performing Organization Address City/[facility]/ZIP Co de Phone Number [facility] [address] [place] [address], * Vitamin B12 (06/13/2024 6:03 AM EST) Vitamin B-12 559 250 - 900 pcg/mL LAB CHEMISTRY METHOD 06/13/2024 11:26 AM EST [facility] Blood Venous blood specimen / Unknown Venipuncture / Unknown 06/13/2024 6:03 AM EST 06/13/2024 9:06 AM EST us Reginald Carrasco MD LAB BLOOD ORDERABLES Final Resul t [facility] [address] [place] [address], * Thyroid stimulating hormone (06/13/2024 6:03 AM EST) [facility] TSH 0.46 0.40 - 4.00 mcIU/mL LAB CHEMISTRY METHOD 06/13/2024 11:10 AM EST [facility] Blood Venous blood specimen / Unknown Venipuncture / Unknown 06/13/2024 6:03 AM EST 06/13/2024 9:06 AM EST Reginald Carrasco MD LAB BLOOD ORDERABLES Final Resul t Performing Organization Address [facility]/ZIP Co de Phone Number [facility] [address] [place] [address], * Hemoglobin A1c (06/13/2024 6:03 AM EST) [facility] Hemoglobin A1C 5.6 <6.5 % LAB CHEMISTRY METHOD 06/13/2024 1:35 PM EST [facility] Mean Bld Glu Estim. 114 mg/dL LAB CHEMISTRY METHOD 06/13/2024 1:35 PM EST [facility] Blood Venous blood specimen / Unknown Venipuncture / Unknown 06/13/2024 6:03 AM EST 06/13/2024 9:06 AM EST Reginald Carrasco MD LAB BLOOD ORDERABLES Final Resul t [facility] [address] [place] [address], [place] [phone] * Lipid panel with reflex to direct LDL (06/13/2024 6:03 AM EST) [facility] Cholesterol 146 0 - 200 mg/dL LAB CHEMISTRY METHOD 06/13/2024 11:26 AM EST [facility] Triglycerides 89 0 - 150 mg/dL LAB CHEMISTRY METHOD 06/13/2024 11:26 AM [facility] HDL 46 >=40 mg/dL LAB CHEMISTRY METHOD 06/13/2024 11:26 AM [facility] LDL Calculated 82 0 - 100 mg/dL LAB CHEMISTRY METHOD 06/13/2024 11:26 AM [facility] VLDL Cholesterol Charanjit 17.8 mg/dL LAB CHEMISTRY METHOD 06/13/2024 11:26 AM [facility] Non HDL Chol. (LDL+VLDL) 100 <145 mg/dL LAB CHEMISTRY METHOD 06/13/2024 11:26 AM [facility] Chol/HDL Ratio 3.2 0.0 - 4.4 LAB CHEMISTRY METHOD 06/13/2024 11:26 AM [facility] Blood Venous blood specimen / Unknown Venipuncture / Unknown 06/13/2024 6:03 AM EST 06/13/2024 9:06 AM EST us Reginald Carrasco MD LAB BLOOD ORDERABLES Final Resul t [facility] [address] [place] [address], * (ABNORMAL) Comprehensive metabolic panel (06/13/2024 6:03 AM EST) Sodium 138 133 - 145 mmol/L LAB CHEMISTRY METHOD 06/13/2024 11:26 AM [facility] Potassium 4.2 3.5 - 5.5 mmol/L LAB CHEMISTRY METHOD 06/13/2024 11:26 AM [facility] Chloride 105 96 - 110 mmol/L LAB CHEMISTRY METHOD 06/13/2024 11:26 AM [facility] CO2 27 21 - 32 mmol/L LAB CHEMISTRY METHOD 06/13/2024 11:26 AM [facility] Anion Gap 6 3 - 11 LAB CHEMISTRY METHOD 06/13/2024 11:26 AM [facility] Glucose 85 70 - 100 mg/dL LAB CHEMISTRY METHOD 06/13/2024 11:26 AM [facility] BUN 23 5 - 25 mg/dL LAB CHEMISTRY METHOD 06/13/2024 11:26 AM [facility] Creatinine 0.86 0.50 - 1.10 mg/dL LAB CHEMISTRY METHOD 06/13/2024 11:26 AM [facility] eGFR 70 >=60 mL/min/1. 73m2 LAB CHEMISTRY METHOD 06/13/2024 11:26 AM [facility] Comment:Calculation based on the Chronic Kidney Disease Epidemiology Collaboration (CKD-EPI) equation refit without adjustment for race. BUN/Creatinine Ratio 26.7 LAB CHEMISTRY METHOD 06/13/2024 11:26 AM [facility] Calcium 8.3(L) 8.5 - 10.5 mg/dL LAB CHEMISTRY METHOD 06/13/2024 11:26 AM [facility] AST (SGOT) 9(L) 10 - 42 unit/L LAB CHEMISTRY METHOD 06/13/2024 11:26 AM [facility] ALT (SGPT) 14 10 - 60 unit/L LAB CHEMISTRY METHOD 06/13/2024 11:26 AM [facility] Alkaline Phosphatase 196(H) 42 - 121 unit/L LAB CHEMISTRY METHOD 06/13/2024 11:26 AM [facility] Total Protein 6.2 6.0 - 8.0 g/dL LAB CHEMISTRY METHOD 06/13/2024 11:26 AM [facility] Albumin 3.1(L) 3.2 - 5.0 g/dL LAB CHEMISTRY METHOD 06/13/2024 11:26 AM [facility] Total Bilirubin 0.3 0.0 - 1.4 mg/dL LAB CHEMISTRY METHOD 06/13/2024 11:26 AM EST [facility] Blood Venous blood specimen / Unknown Venipuncture / Unknown 06/13/2024 6:03 AM EST 06/13/2024 9:06 AM EST us Reginald Carrasco MD LAB BLOOD ORDERABLES Final Resul t [facility] [address] [place] [address], * Complete blood count (06/13/2024 6:03 AM EST) WBC 6.8 4.8 - 10.8 K/mcL LAB HEMETOLOGY METHOD 06/13/2024 10:56 AM [facility] RBC 3.90 3.80 - 4.80 M/mcL LAB HEMETOLOGY METHOD 06/13/2024 10:56 AM [facility] Hemoglobin 12.2 11.5 - 16.0 g/dL LAB HEMETOLOGY METHOD 06/13/2024 10:56 AM [facility] Hematocrit 38.1 35.0 - 47.0 % LAB HEMETOLOGY METHOD 06/13/2024 10:56 AM [facility] MCV 96.7 79.0 - 98.0 FL LAB HEMETOLOGY METHOD 06/13/2024 10:56 AM [facility] MCH 31.0 27.0 - 32.0 pcg LAB HEMETOLOGY METHOD 06/13/2024 10:56 AM [facility] MCHC 32.0 32.0 - 37.0 g/dL LAB HEMETOLOGY METHOD 06/13/2024 10:56 AM [facility] RDW 12.8 11.0 - 15.0 % LAB HEMETOLOGY METHOD 06/13/2024 10:56 AM [facility] Platelets 250 130 - 400 K/mcL LAB HEMETOLOGY METHOD 06/13/2024 10:56 AM [facility] MPV 9.2 7.0 - 11.0 FL LAB HEMETOLOGY METHOD 06/13/2024 10:56 AM EST [facility] NRBC 0.0 <1.0 % LAB HEMETOLOGY METHOD 06/13/2024 10:56 AM EST [facility] NRBC Absolute 0.00 <0.10 K/mcL LAB HEMETOLOGY METHOD 06/13/2024 10:56 AM EST [facility] Blood Venous blood specimen / Unknown Venipuncture / Unknown 06/13/2024 6:03 AM EST 06/13/2024 9:06 AM EST us Reginald Carrasco MD LAB BLOOD ORDERABLES Final Resul t [facility] [address] [place] [address], documented in this encounter Visit Diagnoses Diagnosis Type 2 diabetes mellitus without complications (CMS/HCC V24, CMS/HCC V28) Other marine oil terminal superintendent (current) drug therapy documented in this encounter Care Teams Re Dye Hand Relationship Specialty Start Date End Date Reginald Carrasco MD [address] [place] [address], [phone] PCP - General Family Medicine 03/12/24 documented as of this encounter
--- OUTSIDE RECORDS SUMMARY | 2025-01-29 11:29 | XMS_ITS | Encounter Summary ---
Author Organization [facility] Address [address] [place] [phone] Phone Care Team Providers Care Training Specialist Name Role Phone Yadi Neil Primary Care Provider [phone] Encounter Details Date Type Department Care Team (Late st Contact Info) Description 05/12/2020 Procedure Pass [facility], Ct Scan - [facility] [address] [place] [address] Social History Tobacco Use Types Packs/Day Years [...] AM EDT documented as of this encounter Functional Status * Calculated C-SSRS Risk Score (Lifetime/Recent) Answer Date of Assessment Author No Risk Indicated 05/12/2020 12:06 AM Ally Jones * [place] Suicide Severity Rating Scale (Screener/Recent Self-Report) Question Answer Date of Assessment Author 1. Wish to be (Past 1 Month) No 05/12/2020 12:06 AM Cris Varner 2. Non-Specific Active Suici sarah Thoughts (Past 1 Month) No 05/12/2020 12:06 AM Ally Varner 6. Suicidal Behavior (Lifetime) No 12:06 AM EST Ally Yun documented as of this encounter Plan of Treatment Not on file documented as of this encounter Visit Diagnoses Not on filedocumented in this encounter Additional Health Concerns Infection Onset Date Last Indicated Resolved Time CoV-Risk 05/12/2020 05/12/2020 05/22/2020 1:25 AM EST documented as of this encounter Care Teams Training Specialist Relationship Specialty Start Date End Date Yadi Neil PA [address] [place] [phone] PCP - General Business Planning Manager 12/21/18 documented as of this encounter Additional Source Comments The information contained in this document represents components of the legal health record. It is not the complete legal health record.[facility]
--- OUTSIDE RECORDS SUMMARY | 2025-01-29 11:29 | XMS_ITS | Clinical Summary ---
Author Organization [facility] Address [address] [address] Phone Care Team Providers Care Belt Machine Operator Name Role Phone Yadi Neil Primary Care Provider [phone] Allergies Active Allergy Reactions Criticality Noted Date Comments Lactose Diarrhea Low 02/05/2019 [place] Juice Diarrhea Low 02/05/2019 Medications benztropine (COGENTIN) 1 MG tablet Take 1 mg by mouth nightly at bedtime. Active haloperidol (HALDOL) 10 MG tablet Take 10 mg by mouth nightly at bedtime. Active pantoprazole (PROTONIX) 40 MG tablet Take 40 mg by mouth 2 (two) times a day. 0 Active traZODone (DESYREL) 100 MG tablet Take 100 mg by mouth nightly at bedtime. 0 Active albuterol 2.5 mg /3 mL (0.083 %) nebulizer solution Take 3 mL (2.5 mg total) by nebulization 4 (four) times a day as needed for wheezing. 0 Active magnesium oxide (MAG-OX) 400 mg (240 mg elemental) tablet Take 1 tablet (400 mg total) by mouth 2 (two) times a day. 0 Active ferrous gluconate 324 mg (37.5 mg elemental) Tab Take 324 mg by mouth daily. 0 Active fluticasone furoate-vilant Constance (BREO ELLIPTA) 100-25 mcg/dose inhaler Inhale 1 puff into the lungs daily. 0 Active atorvastatin (LIPITOR) 10 MG tablet Take 10 mg by mouth daily. 0 Active loratadine (CLARITIN) 10 mg tablet Take 10 mg by mouth daily. 0 Active metFORMIN (GLUMETZA) 500 MG (MOD) 24 hr tablet Take 500 mg by mouth daily with breakfast. 0 Active cholecalcifero l, vitamin D3, (VITAMIN D3 ORAL) Take 2,000 Units by mouth daily. 0 Active acetaminophen (TYLENOL) 325 mg tablet Take 650 mg by mouth 3 (three) times a day. 0 Active alendronate (FOSAMAX) 70 MG tablet Take 70 mg by mouth every 7 days. Mondays 0 Active QUEtiapine (SEROQUEL) 300 MG tablet Take 600 mg by mouth nightly at bedtime. Active ascorbic acid, vitamin C, (VITAMIN C) 1000 MG tablet Take 1,000 mg by mouth daily. Active tiotropium (SPIRIVA HANDIHALER) 18 mcg inhalation capsule Inhale 18 mcg into the lungs daily. Active ipratropium-al buteroL (DUONEB) 0.5-2.5 mg/3 mL nebulizer solution ipratropium 0.5 mg-albuterol 3 mg (2.5 mg base)/3 mL nebulization soln 020 Discontin ued(No longer taking) Active Problems Problem Noted Date Diagnosed Date NSTEMI, initial episode of care 02/11/2020 Assessment & Plan (02/11/2020 3:59 AM EDT): The patient presented with a fall and has a history of falls. Surprisingly, she was found to have suffered a totally silent [place]. She may have suffered a transient arrhythmia which caused her fall. We will monitor on telemetry. She has been started on heparin, high-dose Lipitor, beta-blockers, and aspirin. Cardiology consult has been requested. An echocardiogram is ordered. Presumably, she will be transferred to [facility] for cardiac catheterization. Weakness 07/01/2019 Assessment & Plan (07/01/2019 11:29 PM EDT): Patient presented from skilled nursing with generalized weakness and recent falls. Patient was evaluated in the emergency room 3 days prior with no evidence of acute injuries or fractures. Repeat laboratory studies was unremarkable for acute pathology. Chest x-ray and CT head negative. No focal deficits or cerebellar dysfunction. Proximal upper and lower extremity strength appears 5/5 and symmetrical. ED plan was to discharge to [facility] for further rehab. Unfortunately [facility] requested a formal physical therapy consultation which cannot be performed until the morning of July 01. -PT/OT consult in the morning Leukopenia 07/01/2019 Assessment & Plan (07/01/2019 11:34 PM EDT): WBC mildly low at 3.66. Etiology unclear at this time. No clear evidence of acute infection. -Continue to monitor repeat CBC in the morning Acute encephalopathy 02/06/2019 Assessment & Plan (02/06/2019 2:39 AM EDT): I suspect that this is from polypharmacy. Less likely is symptomatic hyponatremia. We will resume her home medications as ordered and monitor her. Diabetes mellitus, type 2 02/06/2019 Assessment & Plan (02/11/2020 3:59 AM EDT): The patient suffers from diabetes mellitus type 2 and is maintained only on a low dose of Metformin. The Metformin is held given she will likely have a dye study. We will follow blood sugars and treat with low-dose insulin only as needed. She has a borderline low magnesium which will be supplemented. Assessment & Plan (07/01/2019 11:31 PM EDT): Patient is a [id number] diabetic on metformin. -Continue metformin and place on low-dose sliding scale. No indication for bolus dosing at this time. Assessment & Plan (02/06/2019 2:39 AM EDT): We will hold metformin and give basal bolus insulin therapy. Psychosis 02/06/2019 Assessment & Plan (07/01/2019 11:32 PM EDT): Clinically stable. Continue her home meds of trazodone, Seroquel, Haldol. Assessment & Plan (02/06/2019 2:39 AM EDT): We will continue/resume the home medications that we have listed. We will start this this evening. Hyponatremia 02/06/2019 Assessment & Plan (02/11/2020 4:01 AM EDT): The etiology for her hyponatremia is unclear. The most recent normal sodium of 138 dates back to June 2019. To investigate this further serum and urine osmolarity and urine sodium have been ordered. Assessment & Plan (02/06/2019 2:41 AM EDT): Mild hyponatremia at 128. Slightly hyponatremic 2 months ago at 134. Normal sodium levels in 2018. With her dry mucous membranes and elevated BUN to creatinine ratio I am going to give her gentle IV fluids. We will monitor her sodium levels. I will add on urine osmolality and urine sodium. COPD (chronic obstructive pulmonary disease) Assessment & Plan (02/11/2020 4:03 AM EDT): The patient denies any smoking history. Her COPD may be related to asthma. Her usual as needed nebulizer treatments and Advair have been ordered. Her albuterol metered-dose inhaler and Spiriva have not been ordered. Currently she has minimal symptoms of shortness of breath or bronchospasm and she is oxygenating well. Assessment & Plan (07/01/2019 11:32 PM EDT): No evidence of acute exacerbation. -Continue Advair, Spiriva, and albuterol MDI as needed Assessment & Plan (02/06/2019 2:42 AM EDT): We will continue with home medications. Fall 02/06/2019 Assessment & Plan (02/06/2019 2:43 AM EDT): We will ask physical therapy to see her in consultation. Family History Medical History Relation Comments Heart disease Father Hypertension Father Heart disease Mother Relation Status Comments Father Mother Social History Tobacco Use Types Packs/Day Years [...] Orientation Straight 08/15/2017 9: 01 AM EDT Last Filed Vital Signs Vital Sign Reading Time Taken Comments Blood Pressure 148/75 05/12/2020 9:53 AM EST Pulse 88 05/12/2020 9:53 AM EST Temperature 36.5 C (97.7 F) 05/12/2020 9:54 AM EST Respiratory Rate 18 05/12/2020 9:53 AM EST Oxygen Saturation 97% 05/12/2020 9:53 AM EST Inhaled Oxygen Concentration - - Weight 81.6 kg (180 lb) 05/12/2020 12:05 AM EST Height 152.4 cm (5') 05/12/2020 12:05 AM EST Body Mass Index 35.15 05/12/2020 12:05 AM EST Plan of Treatment Health Maintenance Due Date Last Done Comments BLOOD PRESSURE 1947 HEMOGLOBIN A1C 1947 DEPRESSION SCREENING 1959 SMOKING Hx and SMOKELESS TOBACCO SCREENING 1960 HEPATITIS C SCREENING 1965 OSTEOPOROSIS SCREENING INITIAL (ONE-TIME) 2012 ZOSTER VACCINES (2 of 3) 11/02/2012 09/07/2012 PNEUMOCOCCAL VACCINES (50+ years) (2 of 2 - PCV) 2013 2012 DIABETIC EYE EXAM 02/07/2019 URINE MICROALBUMIN/CREATININE RATIO 02/07/2019 Adult Td,Tdap Booster 12/11/2020 12/11/2010 CREATININE LEVEL 05/12/2021 05/12/2020, , 02/26/2020, Additional history exists RSV VACCINE (1 - 1-dose 75+ series) 2022 INFLUENZA VACCINE (#1) 2024 , 01/10/2019, 01/11/2012, Additional history exists COVID-19 VACCINE (3 - 2024- season) 2024 06/08/2020, 05/18/2020 HEPATITIS A VACCINES Aged Out No long er eligible based on patient's age to complete this topic HIB VACCINES Aged Out No longer eligi ble based on patient's age to complete this topic MENINGOCOCCAL VACCINES (ACWY) Aged Out No longer eligible based on patient's age to complete this topic MENINGOCOCCAL VACCINES (B) Aged Out N o longer eligible based on patient's age to complete this topic Medical Devices Not on file Procedures Procedure Name Priority Date/Time Associated Diagnosis Comments BASIC METABOLIC PANEL STAT 05/12/2020 1:02 AM EST from Last 3 Months or Most Recently Relevant to Health Maintenance Results * (ABNORMAL) Basic metabolic panel (05/12/2020 1:02 AM EST) SODIUM 129(L) 133 - 146 mmol/L [facility] CHLORIDE 95(L) 96 - 108 mmol/L [facility] POTASSIUM 4.7 3.3 - 5.1 mmol/L [facility] CO2 24 21 - 35 mmol/L [facility] BUN 26(H) 6 - 19 mg/dL [facility] CREATININE 1.30 0.5 - 1.5 mg/dL [facility] GLUCOSE 135(H) 70 - 99 mg/dL [facility] CALCIUM 8.4 8.4 - 10.3 mg/dL [facility] EGFR 41(L) >59 mL/min/1.7 3m2 [facility] Comment:Estimated glomerular filtration rate calculated using the CKD-EPI equation. ANION GAP 15 10 - 20 mmol/L [facility] Blood 05/12/2020 1:02 AM EST 05/12/2020 1:11 AM EST us Yasmin Macias PA-C LAB BLOOD ORDERABLES Final Result [facility] [address] [place] [address] from Last 3 Months or Most Recently Relevant to Health Maintenance Insurance MEDICARE PART A & B [facility] MED[facility] PART A & [facility] A & B [place] & [facility] & [place] & [facility] & B [employer] [place] Advance Directives For more information, please contact: [phone] (9AM - 5PM [place], Tuesday-Tuesday) Documents on File Type Date Recorded Patient Diving Instructor Expl anation Healthcare Proxy 02/12/2020 8:30 AM MOLST 02/12/2020 8:30 AM Healthcare Proxy 02/11/2020 3:37 PM PROXY [email or web address] * Full Code (Latest Code Status on File) Date Activated Date Inactivated Comments 02/11/2020 2:54 AM Question Answer Comments Code Status Confirmed With: Other (specify below ) Code Discussion Comments: MOLST * Full Code (Confirmed) Date Activated Date Inactivated Comments 07/01/2019 8:37 PM 07/02/2019 5:53 PM Question Answer Comments Code Status Confirmed With: Patient * Full Code (Presumed) Date Activated Date Inactivated Comments 02/06/2019 2:57 AM 02/07/2019 1:17 PM Healthcare Agents on File Name Relationship Healthcare Agent [facility] Communication Tamela Walters Sister .Primary Health Care Agent (Proxy form on file) Care Teams Belt Machine Operator Relationship Specialty Start Date End Date Yadi Neil PA [address] [place] [phone] PCP - General Needle Maker 12/21/18 Additional Source Comments The information contained in this document represents components of the legal health record. It is not the complete legal health record.[facility]
--- OUTSIDE RECORDS SUMMARY | 2025-01-29 11:29 | XMS_ITS | Encounter Summary ---
Author Organization [facility] Address [id number] [place] [phone] Care Team Providers Care Technician Test Systems Name Role Phone Reginald Carrasco MD Primary Care Provider [phone] Encounter Details Date Type Department Care Team (Late st Contact Info) Description 12/20/2024 Lab Requisition [facility] [place] [facility] - Main Lab [address] [facility] [place] [address] Reginald Carrasco MD [address] [place] [address] [address], [phone] Thyrotoxicosis, unspecified without thyrotoxic crisis or storm; Hypocalcemia Social History Tobacco Use Types Packs/Day Years Used Date Smoking Tobacco: Never Assessed Comments Unknown Sex and Gender Information Value Date Recorded Sex Assigned at Not on file Legal Sex Female 8:49 AM EST Gender Identity Not on file Sexual Orientation Not on file documented as of this encounter Plan of Treatment Not on file documented as of this encounter Visit Diagnoses Diagnosis Thyrotoxicosis, unspecified without thyrotoxic crisis or storm Hypocalcemia documented in this encounter Care Teams Technician Test Systems Relationship Specialty Start Date End Date Reginald Carrasco MD [address] [place] [address] [address], [phone] PCP - General Family Medicine 03/12/24 documented as of this encounter
--- OUTSIDE RECORDS SUMMARY | 2025-01-29 11:29 | XMS_ITS | Encounter Summary ---
Author Organization [facility] Address [address] [facility] [address] [place] [address] Phone Care Team Providers Care Public Health Physician Name Role Phone Yadi Neil Primary Care Provider [phone] Encounter Details Date Type Department Care Team (Late st Contact Info) Description 05/12/2020 Procedure Pass [facility], Ct Scan - [facility] [address] [place] [address] Social History Tobacco Use Types Packs/Day Years [...] Indicated 05/12/2020 12:06 AM Ally Jones * [place] Suicide Severity Rating Scale (Screener/Recent Self-Report) Question [...] documented as of this encounter Care Teams Public Health Physician Relationship Specialty Start Date End Date Yadi Neil PA [address] [place] [phone] PCP - General Government Guard 12/21/18 documented as of this encounter Additional Source Comments The information contained in this document represents components of the legal health record. It is not the complete legal health record.[facility]
--- OUTSIDE RECORDS SUMMARY | 2025-01-29 11:29 | XMS_ITS | Clinical Summary ---
Author Organization [address] [facility] Address [address] [place] [address] Phone Care Team Providers Care Pellet Machine Operator Name Role Phone Reginald Carrasco MD Primary Care Provider [phone] Encounters Date Type Department Care Team Description 12/27/2024 Lab Requisition [facility] Lab [address] [place] [phone] Reginald Carrasco MD Type 2 diabetes mellitus without complications (CMS/HCC V24, CMS/HCC V28) 12/22/2024 Lab Requisition [facility] [address] [place] [phone] Reginald Carrasco MD Thyrotoxicosis, unspecified without thyrotoxic crisis or storm; Hypocalcemia 12/20/2024 Lab Requisition [facility] Lab [address] [place] [phone] Reginald Carrasco MD Thyrotoxicosis, unspecified without thyrotoxic crisis or storm; Hypocalcemia from Last 3 Months Social History Tobacco Use Types Packs/Day Years Used Date Smoking Tobacco: Never Assessed Comments Unknown Sex and Gender Information Value Date Recorded Sex Assigned at Not on file Legal Sex Female 8:49 AM EST Gender Identity Not on file Sexual Orientation Not on file Plan of Treatment Health Maintenance Due Date Last Done Comments Diabetes: Annual Foot Exam 1957 Diabetes: Annual Retina Eye Exam 1957 DTaP,Tdap,and Td Vaccines (1 - Tdap) 1966 Pneumococcal Vaccine: 50+ Years (1 of 2 - PCV) 1966 Zoster Vaccines (1 of 2) 1997 Falls Risk Assessment 03/21/2022 Hepatitis C Screening 03/21/2022 Medicare Annual Wellness Visit 03/21/2022 Osteoporosis Screening (Bone Density Screening) 03/21/2022 Social Influencers of Health Screening 03/21/2022 RSV Immunization Adult Patients (1 - 1-dose 75+ series) 2022 Depression Screening 04/18/2024 Diabetes: Annual Urine Albumin-Creatinine Ratio (uACR) 05/18/2024 Diabetes: Blood Sugar Control Test (HGBA1C) 12/11/2024 06/13/2024 COVID-19 Vaccine ( season) 2024 Influenza Vaccine (#1) 2024 Diabetes: Annual GFR (Glomerular Filtration Rate) 12/28/2025 12/28/2024, 06/13/2024, 05/21/2024, Additional history exists Hypertension/CHF/CAD Annual BMP Blood Test 12/28/2025 12/28/2024, 06/13/2024, 05/21/2024, Additional history exists Cholesterol Screening (Lipid Panel) 06/13/2029 06/13/2024 HIB Vaccines Aged Out No longer eligi ble based on patient's age to complete this topic HPV Vaccines Aged Out No longer eligi ble based on patient's age to complete this topic Hepatitis A Vaccines Aged Out No long er eligible based on patient's age to complete this topic Hepatitis B Vaccines Aged Out No long er eligible based on patient's age to complete this topic IPV Vaccines Aged Out No longer eligi ble based on patient's age to complete this topic MMR Vaccines Aged Out No longer eligi ble based on patient's age to complete this topic Meningococcal ACWY Vaccine Aged Out N o longer eligible based on patient's age to complete this topic Meningococcal B Vaccine Aged Out No l onger eligible based on patient's age to complete this topic RSV Immunization Patients Under 20 months Aged Out No longer eligible based on patient's age to complete this topic Varicella Vaccines Aged Out No longer eligible based on patient's age to complete this topic Procedures Procedure Name Priority Date/Time Associated Diagnosis Comments BASIC METABOLIC PANEL Routine 12/28/2024 6:30 AM EDT Type 2 diabetes mellitus without complications (CMS/HCC V24, CMS/HCC V28) COMPLETE BLOOD COUNT Routine 12/28/2024 6:30 AM EDT Type 2 diabetes mellitus without complications (CMS/HCC V24, CMS/HCC V28) HEMOGLOBIN A1C Routine 06/13/2024 6:03 AM EST Type 2 diabetes mellitus without complications ([facility]/HCC) Other assisted (current) drug therapy LIPID PANEL WITH REFLEX TO DIRECT LDL Routine 06/13/2024 6:03 AM EST Type 2 diabetes mellitus without complications (CMS/[facility]) Other assisted (current) drug therapy from Last 3 Months or Most Recently Relevant to Health Maintenance Results * Complete blood count (12/28/2024 6:30 AM EDT) WBC 8.2 4.8 - 10.8 K/mcL LAB HEMETOLOGY METHOD 12/28/2024 10:56 AM [facility] RBC 3.90 3.80 - 4.80 M/mcL LAB HEMETOLOGY METHOD 12/28/2024 10:56 AM [facility] Hemoglobin 11.7 11.5 - 16.0 g/dL LAB HEMETOLOGY METHOD 12/28/2024 10:56 AM [facility] Hematocrit 36.1 35.0 - 47.0 % LAB HEMETOLOGY METHOD 12/28/2024 10:56 AM [facility] MCV 91.9 79.0 - 98.0 FL LAB HEMETOLOGY METHOD 12/28/2024 10:56 AM [facility] MCH 29.8 27.0 - 32.0 pcg LAB HEMETOLOGY METHOD 12/28/2024 10:56 AM [facility] MCHC 32.4 32.0 - 37.0 g/dL LAB HEMETOLOGY METHOD 12/28/2024 10:56 AM [facility] RDW 12.7 11.0 - 15.0 % LAB HEMETOLOGY METHOD 12/28/2024 10:56 AM [facility] Platelets 239 130 - 400 K/mcL LAB HEMETOLOGY METHOD 12/28/2024 10:56 AM EDT [facility] MPV 9.3 7.0 - 11.0 FL LAB HEMETOLOGY METHOD 12/28/2024 10:56 AM EDT [facility] NRBC 0.0 <1.0 % LAB HEMETOLOGY METHOD 12/28/2024 10:56 AM EDT [facility] NRBC Absolute 0.00 <0.10 K/mcL LAB HEMETOLOGY METHOD 12/28/2024 10:56 AM EDT [facility] Blood Venous blood specimen / Unknown Venipuncture / Unknown 12/28/2024 6:30 AM EDT 12/28/2024 10:40 AM EDT Reginald Carrasco MD LAB BLOOD ORDERABLES Final Resul t [facility] [address] [place] [address], [place] [phone] * (ABNORMAL) Basic metabolic panel (12/28/2024 6:30 AM EDT) Sodium 136 133 - 145 mmol/L LAB CHEMISTRY METHOD 12/28/2024 11:34 AM [facility] Potassium 4.4 3.5 - 5.5 mmol/L LAB CHEMISTRY METHOD 12/28/2024 11:34 AM T [facility] Chloride 104 96 - 110 mmol/L LAB CHEMISTRY METHOD 12/28/2024 11:34 AM T [facility] CO2 23 21 - 32 mmol/L LAB CHEMISTRY METHOD 12/28/2024 11:34 AM T [facility] Anion Gap 9 3 - 11 LAB CHEMISTRY METHOD 12/28/2024 11:34 AM EDT [facility] Glucose 89 70 - 100 mg/dL LAB CHEMISTRY METHOD 12/28/2024 11:34 AM EDT [facility] BUN 26(H) 5 - 25 mg/dL LAB CHEMISTRY METHOD 12/28/2024 11:34 AM EDT [facility] Creatinine 0.96 0.50 - 1.10 mg/dL LAB CHEMISTRY METHOD 12/28/2024 11:34 AM EDT [facility] eGFR 61 >=60 mL/min/1. 73m2 LAB CHEMISTRY METHOD 12/28/2024 11:34 AM EDT [facility] Comment:Calculation based on the Chronic Kidney Disease Epidemiology Collaboration (CKD-EPI) equation refit without adjustment for race. BUN/Creatinine Ratio 27.1 LAB CHEMISTRY METHOD 12/28/2024 11:34 AM [facility] Calcium 8.1(L) 8.5 - 10.5 mg/dL LAB CHEMISTRY METHOD 12/28/2024 11:34 AM EDT [facility] Blood Venous blood specimen / Unknown Venipuncture / Unknown 12/28/2024 6:30 AM EDT 12/28/2024 10:40 AM EDT us Reginald Carrasco MD LAB BLOOD ORDERABLES Final Resul t [facility] [address] [place] [address], * Lipid panel with reflex to direct LDL (06/13/2024 6:03 AM EST) Cholesterol 146 0 - 200 mg/dL LAB CHEMISTRY METHOD 06/13/2024 11:26 AM EST [facility] Triglycerides 89 0 - 150 mg/dL LAB CHEMISTRY METHOD 06/13/2024 11:26 AM EST [facility] HDL 46 >=40 mg/dL LAB CHEMISTRY METHOD 06/13/2024 11:26 AM EST [facility] LDL Calculated 82 0 - 100 mg/dL LAB CHEMISTRY METHOD 06/13/2024 11:26 AM EST [facility] VLDL Cholesterol Charanjit 17.8 mg/dL LAB CHEMISTRY METHOD 06/13/2024 11:26 AM EST [facility] Non HDL Chol. (LDL+VLDL) 100 <145 mg/dL LAB CHEMISTRY METHOD 06/13/2024 11:26 AM [facility] Chol/HDL Ratio 3.2 0.0 - 4.4 LAB CHEMISTRY METHOD 06/13/2024 11:26 AM EST [facility] Blood Venous blood specimen / Unknown Venipuncture / Unknown 06/13/2024 6:03 AM EST 06/13/2024 9:06 AM EST Reginald Carrasco MD LAB BLOOD ORDERABLES Final Resul t [facility] [address] [place] [address], [place] [phone] * Hemoglobin A1c (06/13/2024 6:03 AM EST) Hemoglobin A1C 5.6 <6.5 % LAB CHEMISTRY METHOD 06/13/2024 1:35 PM EST [facility] Mean Bld Glu Estim. 114 mg/dL LAB CHEMISTRY METHOD 06/13/2024 1:35 PM [facility] Blood Venous blood specimen / Unknown Venipuncture / Unknown 06/13/2024 6:03 AM EST 06/13/2024 9:06 AM EST Reginald Carrasco MD LAB BLOOD ORDERABLES Final Resul t [facility] [address] [place] [address], [place] [phone] from Last 3 Months or Most Recently Relevant to Health Maintenance Insurance MEDICARE [place]ICAID - [place] Care Teams Pellet Machine Operator Relationship Specialty Start Date End Date Reginald Carrasco MD [address], [phone] PCP - General Family Medicine 03/12/24
--- OUTSIDE RECORDS SUMMARY | 2025-01-29 11:29 | XMS_ITS | Encounter Summary ---
Author Organization [facility] Address [address] [place] [address] Care Team Providers Care Fence Setter Name Role Phone Reginald Carrasco MD Primary Care Provider [phone] Encounter Details Date Type Department Care Team (Late st Contact Info) Description 2024 Lab Requisition [facility] - Main Lab [address] [facility] [place] [address] Reginald Carrasco MD [address] [facility] [address] [place], [address] Hyperlipidemia, unspecified; Type 2 diabetes mellitus without complications (CMS/HCC V24, CMS/HCC V28); Essential (primary) hypertension; Other intermediate (current) drug therapy; Vitamin D deficiency, unspecified [...] as of this encounter Visit Diagnoses Diagnosis Hyperlipidemia, unspecified Type 2 diabetes mellitus without complications (CMS/HCC V24, CMS/HCC V28) Essential (primary) hypertension Unspecified essential hypertension Other remote computer terminal operator (current) drug therapy Vitamin D deficiency, unspecified documented in this encounter Care Teams Fence Setter Relationship Specialty Start Date End Date Reginald Carrasco MD [address] [facility] [address] [place], [phone] PCP - General Family Medicine 03/12/24 documented as of this encounter
--- OUTSIDE RECORDS SUMMARY | 2025-01-29 11:29 | XMS_ITS | Encounter Summary ---
Author Organization [facility] Address [address] [place] [phone] Care Team Providers Care Sheet Layer Name Role Phone Reginald Carrasco MD Primary Care Provider Encounter Details Date Type Department Care Team (Late st Contact Info) Description 12/22/2024 Lab Requisition [facility] - Main Lab 299 [facility] [place] [address] Reginald Carrasco MD [address] [place] [address] [address] [place], [phone] Thyrotoxicosis, unspecified without thyrotoxic crisis or [...] Hypocalcemia documented in this encounter Care Teams Sheet Layer Relationship Specialty Start Date End Date Reginald Carrasco MD [address] [place] [address] [address] [place], [phone] PCP - General Family Medicine 03/12/24 documented as of this encounter
--- OUTSIDE RECORDS SUMMARY | 2025-01-29 11:29 | XMS_ITS | Encounter Summary ---
Author Organization [facility] Address [address] [place] [address] Care Team Providers Care Early Years Teacher Name Role Phone Reginald Carrasco MD Primary Care Provider [phone] Encounter Details Date Type Department Care Team (Late st Contact Info) Description 03/09/2024 Lab Requisition [facility] - Main Lab 299 [facility] [place] [address] Reginald Carrasco MD [address] [facility] [address] [place], [address] Other fpc (current) drug therapy; Hypocalcemia; Vitamin D deficiency, unspecified Social History Tobacco [...] Procedure Name Priority Date/Time Associated Diagnosis Comments THYROID STIMULATING HORMONE WITH REFLEX TO FREE T4 AND FREE T3 Routine 03/12/2024 5:44 AM EST Other watermelon harvesting supervisor (current) drug therapy Hypocalcemia Vitamin D deficiency, unspecified CBC WITH AUTO DIFFERENTIAL Routine 03/12/2024 5:44 AM EST Other fpc (current) drug therapy Hypocalcemia Vitamin D deficiency, unspecified VITAMIN D 25 HYDROXY Routine 03/12/2024 5:44 AM EST Other fpc (current) drug therapy Hypocalcemia Vitamin D deficiency, unspecified CBC AND DIFFERENTIAL Routine 03/12/2024 5:44 AM EST Other watermelon harvesting supervisor (current) drug therapy Hypocalcemia Vitamin D deficiency, unspecified PARATHYROID HORMONE INTACT Routine 03/12/2024 5:44 AM EST Other watermelon harvesting supervisor (current) drug therapy Hypocalcemia Vitamin D deficiency, unspecified HEPATIC FUNCTION PANEL Routine 03/12/2024 5:44 AM EST Other watermelon harvesting supervisor (current) drug therapy Hypocalcemia Vitamin D deficiency, unspecified RENAL FUNCTION PANEL Routine 03/12/2024 5:44 AM EST Other watermelon harvesting supervisor (current) drug therapy Hypocalcemia Vitamin D deficiency, unspecified documented in this encounter Results * CBC auto differential (03/12/2024 5:44 AM EST) WBC 6.0 4.8 - 10.8 K/mcL LAB HEMETOLOGY METHOD 03/12/2024 11:00 AM [facility] LAB RBC 4.00 3.80 - 4.80 M/mcL LAB HEMETOLOGY METHOD 03/12/2024 11:00 AM [facility] LAB Hemoglobin 12.1 11.5 - 16.0 g/dL LAB HEMETOLOGY METHOD 03/12/2024 11:00 AM [facility] LAB Hematocrit 37.2 35.0 - 47.0 % LAB HEMETOLOGY METHOD 03/12/2024 11:00 AM [facility] LAB MCV 92.8 79.0 - 98.0 FL LAB HEMETOLOGY METHOD 03/12/2024 11:00 AM [facility] LAB MCH 30.2 27.0 - 32.0 pcg LAB HEMETOLOGY METHOD 03/12/2024 11:00 AM [facility] LAB MCHC 32.5 32.0 - 37.0 g/dL LAB HEMETOLOGY METHOD 03/12/2024 11:00 AM [facility] LAB RDW 13.1 11.0 - 15.0 % LAB HEMETOLOGY METHOD 03/12/2024 11:00 AM [facility] LAB Platelets 208 130 - 400 K/mcL LAB HEMETOLOGY METHOD 03/12/2024 11:00 AM [facility] LAB MPV 9.2 7.0 - 11.0 FL LAB HEMETOLOGY METHOD 03/12/2024 11:00 AM [facility] LAB NRBC 0.5 <1.0 % LAB HEMETOLOGY METHOD 03/12/2024 11:00 AM [facility] LAB NRBC Absolute 0.03 <0.10 K/mcL LAB HEMETOLOGY METHOD 03/12/2024 11:00 AM [facility] Neutrophils Relative 40.8 % LAB HEMETOLOGY METHOD 03/12/2024 11:00 AM [facility] Lymphocytes Relative 44.9 % LAB HEMETOLOGY METHOD 03/12/2024 11:00 AM [facility] Monocytes Relative 9.2 % LAB HEMETOLOGY METHOD 03/12/2024 11:00 AM [facility] Eosinophils Relative 3.7 % LAB HEMETOLOGY METHOD 03/12/2024 11:00 AM [facility] Basophils Relative 1.2 % LAB HEMETOLOGY METHOD 03/12/2024 11:00 AM [facility] Immature Granulocytes Relative 0.2 % LAB HEMETOLOGY METHOD 03/12/2024 11:00 AM [facility] Neutrophils Absolute 2.43 1.50 - 7.00 K/mcL LAB HEMETOLOGY METHOD 03/12/2024 11:00 AM [facility] Lymphocytes Absolute 2.67 1.00 - 5.00 K/mcL LAB HEMETOLOGY METHOD 03/12/2024 11:00 AM [facility] Monocytes Absolute 0.55 0.20 - 1.00 K/mcL LAB HEMETOLOGY METHOD 03/12/2024 11:00 AM [facility] LAB Eosinophils Absolute 0.22 0.00 - 0.50 K/[facility] LAB HEMETOLOGY METHOD 03/12/2024 11:00 AM EST [facility] Basophils Absolute 0.07 0.00 - 0.20 K/[facility] LAB HEMETOLOGY METHOD 03/12/2024 11:00 AM [facility] LAB Immature Granulocytes Absolute 0.01 0.00 - 0.03 K/[facility] LAB HEMETOLOGY METHOD 03/12/2024 11:00 AM EST [facility] Blood Venous blood specimen / Unknown Venipuncture / Unknown 03/12/2024 5:44 AM EST 03/12/2024 10:32 AM EST us Reginald Carrasco MD LAB BLOOD ORDERABLES Final Resul t [facility] [address] [place] [address], * (ABNORMAL) Hepatic function panel (03/12/2024 5:44 AM EST) Total Protein 5.4(L) 6.0 - 8.0 g/dL LAB CHEMISTRY METHOD 03/12/2024 11:40 AM [facility] Albumin 2.9(L) 3.2 - 5.0 g/dL LAB CHEMISTRY METHOD 03/12/2024 11:40 AM [facility] Total Bilirubin 0.3 0.0 - 1.4 mg/dL LAB CHEMISTRY METHOD 03/12/2024 11:40 AM [facility] Bilirubin, Direct <0.1 0.0 - 0.3 mg/dL LAB CHEMISTRY METHOD 03/12/2024 11:40 AM [facility] Bilirubin, Indirect LAB CHEMISTRY METHOD 03/12/2024 11:40 AM [facility] Comment:Unable to calculate Indirect Bilirubin. ALT (SGPT) 12 10 - 60 unit/L LAB CHEMISTRY METHOD 03/12/2024 11:40 AM EST [facility] AST (SGOT) 5(L) 10 - 42 unit/L LAB CHEMISTRY METHOD 03/12/2024 11:40 AM EST [facility] Alkaline Phosphatase 149(H) 42 - 121 unit/L LAB CHEMISTRY METHOD 03/12/2024 11:40 AM EST [facility] Blood Venous blood specimen / Unknown Venipuncture / Unknown 03/12/2024 5:44 AM EST 03/12/2024 10:32 AM EST Reginald Carrasco MD LAB BLOOD ORDERABLES Final Resul t Performing Organization Address City/[facility]/ZIP Co de Phone Number [facility] [address] [place] [address], [place] [phone] * Parathyroid hormone intact (03/12/2024 5:44 AM EST) PTH 76.5 18.5 - 88.0 pcg/mL LAB CHEMISTRY METHOD 03/12/2024 2:02 PM EST [facility] Blood Venous blood specimen / Unknown Venipuncture / Unknown 03/12/2024 5:44 AM EST 03/12/2024 10:32 AM EST Reginald Carrasco MD LAB BLOOD ORDERABLES Final Resul t [facility] [address] [place] [address], [place] [phone] * (ABNORMAL) Vitamin D 25 hydroxy (03/12/2024 5:44 AM EST) Vit D, 25-Hydroxy 21.7(L) 30.0 - 80.0 ng/mL LAB CHEMISTRY METHOD 03/12/2024 11:42 AM EST [facility] Blood Venous blood specimen / Unknown Venipuncture / Unknown 03/12/2024 5:44 AM EST 03/12/2024 10:32 AM EST Reginald Carrasco MD LAB BLOOD ORDERABLES Final Resul t Performing Organization Address City/[facility]/ZIP Co de Phone Number [facility] [address] [place] [address], [place] [phone] * Thyroid stimulating hormone with reflex to free t4 and free t3 (03/12/2024 5:44 AM EST) Pathologist [facility] TSH 0.80 0.40 - 4.00 mcIU/mL LAB CHEMISTRY METHOD 03/12/2024 11:42 AM [facility] Blood Venous blood specimen / Unknown Venipuncture / Unknown 03/12/2024 5:44 AM EST 03/12/2024 10:32 AM EST Reginald Carrasco MD LAB BLOOD ORDERABLES Final Resul t Performing Organization Address [facility] de Phone Number [facility] [address] [place] [address], [place] [phone] * (ABNORMAL) Renal function panel (03/12/2024 5:44 AM EST) [facility] Sodium 140 133 - 145 mmol/L LAB CHEMISTRY METHOD 03/12/2024 11:40 AM [facility] Potassium 4.5 3.5 - 5.5 mmol/L LAB CHEMISTRY METHOD 03/12/2024 11:40 AM [facility] Chloride 108 96 - 110 mmol/L LAB CHEMISTRY METHOD 03/12/2024 11:40 AM [facility] CO2 26 21 - 32 mmol/L LAB CHEMISTRY METHOD 03/12/2024 11:40 AM [facility] Anion Gap 6 3 - 11 LAB CHEMISTRY METHOD 03/12/2024 11:40 AM [facility] Glucose 71 70 - 100 mg/dL LAB CHEMISTRY METHOD 03/12/2024 11:40 AM [facility] BUN 16 5 - 25 mg/dL LAB CHEMISTRY METHOD 03/12/2024 11:40 AM [facility] Creatinine 0.97 0.50 - 1.10 mg/dL LAB CHEMISTRY METHOD 03/12/2024 11:40 AM [facility] eGFR 61 >=60 mL/min/1. 73m2 LAB CHEMISTRY METHOD 03/12/2024 11:40 AM [facility] Comment:Calculation based on the Chronic Kidney Disease Epidemiology Collaboration (CKD-EPI) equation refit without adjustment for race. BUN/Creatinine Ratio 16.5 LAB CHEMISTRY METHOD 03/12/2024 11:40 AM [facility] Albumin 2.9(L) 3.2 - 5.0 g/dL LAB CHEMISTRY METHOD 03/12/2024 11:40 AM [facility] Calcium 8.4(L) 8.5 - 10.5 mg/dL LAB CHEMISTRY METHOD 03/12/2024 11:40 AM [facility] Phosphorus 4.3 2.5 - 4.5 mg/dL LAB CHEMISTRY METHOD 03/12/2024 11:40 AM [facility] Blood Venous blood specimen / Unknown Venipuncture / Unknown 03/12/2024 5:44 AM EST 03/12/2024 10:32 AM EST us Reginald Carrasco MD LAB BLOOD ORDERABLES Final Resul t [facility] [address] [place] [address], documented in this encounter Visit Diagnoses Diagnosis Other watermelon harvesting supervisor (current) drug therapy Hypocalcemia Vitamin D deficiency, unspecified documented in this encounter Care Teams Early Years Teacher Relationship Specialty Start Date End Date Reginald Carrasco MD [address] [place] [address] [address] [place], [phone] PCP - General Family Medicine 03/12/24 documented as of this encounter
--- OUTSIDE RECORDS SUMMARY | 2025-01-29 11:29 | XMS_ITS | Encounter Summary ---
Author Organization [facility] Address [address] [place] [phone] Phone Care Team Providers Care Press Tool Maker Name Role Phone Yadi Neil Primary Care Provider [phone] Reason for Referral * Outpatient Procedure - Closed Specialty Diagnoses / Procedures Referred By Contac t Referred To Contact Radiology Diagnoses Thyrotoxicosis without thyroid storm, unspecified thyrotoxicosis type Subclinical hyperthyroidism Procedures NM Thyroid Uptake and Scan I123 NM Thyroid Uptake and Scan I123 Terrance Barr MD Phone: tel: fax: [email or web address] Referral ID Status Reason Start Date Expiration Date Visits Re quested Visits Authorized [id number] Closed 06/04/2019 06/03/2020 1 1 Encounter Details Date Type Department Care Team (Latest Contact Info) Description 06/04/2019 Ancillary Orders Virtual Department [address] [place] [address] Terrance Barr MD [address] [place] [id number] [email or web address] Thyrotoxicosis without thyroid storm, unspecified thyrotoxicosis type; Subclinical hyperthyroidism Social History Tobacco Use Types Packs/Day Years [...] documented as of this encounter Results * NM Thyroid Uptake and Scan I123 (06/15/2019 10:01 AM EST) Anatomical Region Laterality Modality Neck Nuclear Medicine 06/15/2019 11:5 3 AM EST Impressions 06/15/2019 4:14 PM EST Inhomogeneous enlarged thyroid gland. Likely multinodular goiter. Consider correlation with thyroid ultrasound. 24 hour uptake of 26.8%, within the range of normal. POS - [id number] Narrative 06/15/2019 4:14 PM EST EXAM: NM THYROID UPTAKE AND SCAN I123 HISTORY: RECURRENCE OF SUBCLINICAL HYPERTHYROIDISM, ASSESS FOR CAUSE OF TSH 0.04 BUT NORMAL TSL, SUGGESTING AGAINST GRAVES DISEASE, NORMAL FT4 AND FT3 TECHNIQUE: Patient received 282uCi of I-123 p.o. A 24 uptake and scan was performed. COMPARISON: None FINDINGS: The thyroid gland appears enlarged. Uptake is diffusely inhomogeneous. No substernal thyroid identified. 24-hour uptake measured: 26.8%. (Normal range is 10 to 35%.) Procedure Note Wendie Guadarrama MD - 06/15/2019 EXAM: NM THYROID UPTAKE AND SCAN I123 HISTORY: RECURRENCE OF SUBCLINICAL HYPERTHYROIDISM, ASSESS FOR CAUSE OFTSH 0.04 BUT NORMAL TSL, SUGGESTING AGAINST GRAVES DISEASE, NORMAL FT4 ANDFT3 TECHNIQUE: Patient received 282uCi of I-123 p.o. A 24 uptake and scan wasperformed. COMPARISON: None FINDINGS: The thyroid gland appears enlarged. Uptake is diffusely inhomogeneous. No substernal thyroid identified. 24-hour uptake measured: 26.8%. (Normal range is 10 to 35%.) IMPRESSION: Inhomogeneous enlarged thyroid gland. Likely multinodular goiter. Considercorrelation with thyroid ultrasound. 24 hour uptake of 26.8%, within the range of normal. POS - [id number] Terrance Barr MD [facility] [place] Final Resu lt documented in this encounter Visit Diagnoses Diagnosis Thyrotoxicosis without thyroid storm, unspecified thyrotoxicosis type Subclinical hyperthyroidism Thyrotoxicosis without mention of goiter or other cause, without mention of thyrotoxic crisis or storm Thyrotoxicosis without thyroid storm, unspecified thyrotoxicosis type Subclinical hyperthyroidism Thyrotoxicosis without mention of goiter or other cause, without mention of thyrotoxic crisis or storm documented in this encounter Additional Health Concerns Infection Onset Date Last Indicated Resolved Time CoV-Exposed Comment:SNF dc 03/04 full PPE for 14 days 03/05/2020 03/05/2020 03/19/2020 1:[address] CoV-Risk 05/12/2020 05/12/2020 05/22/2020 1:25 AM EST documented as of this encounter Care Teams Press Tool Maker Relationship Specialty Start Date End Date Yadi Neil PA [address] [place] [phone] PCP - General Experience Designer 12/21/18 documented as of this encounter Additional Source Comments The information contained in this document represents components of the legal health record. It is not the complete legal health record.[facility]
--- OUTSIDE RECORDS SUMMARY | 2025-01-29 11:29 | XMS_ITS | Encounter Summary ---
Author Organization [facility] Address [address] [facility] [address] [place] [address] Phone Care Team Providers Care Director Of Rehabilitative Services Name Role Phone Yadi Neil Primary Care Provider [phone] Encounter Details Date Type Department Care Team (Latest Contact Info) Description 06/04/2019 Transcribe Orders Virtual Department [address] [place] [address] Terrance Barr MD [address] [place] [address] [email or web address] Thyrotoxicosis without thyroid storm, unspecified [...] as of this encounter Visit Diagnoses Diagnosis Thyrotoxicosis without thyroid storm, unspecified thyrotoxicosis type- Primary documented in this encounter Additional Health Concerns Infection Onset Date Last Indicated Resolved Time CoV-Exposed Comment:SNF dc 03/04 full PPE for 14 days 03/05/2020 03/05/2020 03/19/2020 1:[address] CoV-Risk 05/12/2020 05/12/2020 05/22/2020 1:25 AM EST documented as of this encounter Care Teams Director Of Rehabilitative Services Relationship Specialty Start Date End Date Yadi Neil PA [address] [place] [phone] PCP - General Drivability Technician 12/21/18 documented as of this encounter Additional Source Comments The information contained in this document represents components of the legal health record. It is not the complete legal health record.[facility]
--- OUTSIDE RECORDS SUMMARY | 2025-01-29 11:29 | XMS_ITS | Encounter Summary ---
Author Organization [facility] Address [address] [place] [address] Care Team Providers Care Shrimp Trawler Captain Name Role Phone Reginald Carrasco MD Primary Care Provider [phone] Encounter Details Date Type Department Care Team (Late st Contact Info) Description 10/05/2024 Lab Requisition [facility] - Main Lab [address] [facility] [place] [address] Reginald Carrasco MD [address] [facility] [address] [place], [address] Altered mental status, unspecified Social History Tobacco Use Types Packs/Day [...] Procedure Name Priority Date/Time Associated Diagnosis Comments URINALYSIS WITH REFLEX MICROSCOPIC AND CULTURE Routine 10/04/2024 12:00 AM EDT Altered mental status, unspecified BIANCHI URINE CULTURE TUBE Routine 10/04/2024 12:00 AM EDT Altered mental status, unspecified URINALYSIS WITH REFLEX MICROSCOPIC AND CULTURE Routine 10/04/2024 12:00 AM EDT Altered mental status, unspecified documented in this encounter Results * Urinalysis with reflex microscopic and culture (10/04/2024 12:00 AM EDT) Specific [place] Urine 1.013 1.003 - 1.030 LAB URINALYSIS - AUTOMATED METHOD 10/05/2024 10:39 AM [facility] pH, Urine 7.0 5.0 - 8.0 pH LAB URINALYSIS - AUTOMATED METHOD 10/05/2024 10:39 AM [facility] Leukocytes, Urine Negative Negative LAB URINALYSIS - AUTOMATED METHOD 10/05/2024 10:39 AM [facility] Nitrite, Urine Negative Negative LAB URINALYSIS - AUTOMATED METHOD 10/05/2024 10:39 AM [facility] Protein, Urine Negative <=Trace mg/dL LAB URINALYSIS - AUTOMATED METHOD 10/05/2024 10:39 AM [facility] Glucose, Urine Negative Negative mg/dL LAB URINALYSIS - AUTOMATED METHOD 10/05/2024 10:39 AM [facility] Ketones, Urine Negative Negative mg/dL LAB URINALYSIS - AUTOMATED METHOD 10/05/2024 10:39 AM [facility] Urobilinogen, Urine 0.2 0.2 - 1.0 mg/dL LAB URINALYSIS - AUTOMATED METHOD 10/05/2024 10:39 AM [facility] Bilirubin, Urine Negative Negative LAB URINALYSIS - AUTOMATED METHOD 10/05/2024 10:39 AM [facility] Blood, Urine Negative Negative LAB URINALYSIS - AUTOMATED METHOD 10/05/2024 10:39 AM [facility] Urine Urinary bladder structure / Unknown Non-blood Collection / Unknown 10/04/2024 10/05/2024 10:12 AM EDT us Reginald Carrasco MD LAB URINE ORDERABLES Final Resul t [facility] [address] [place] [address], * Bianchi urine culture tube (10/04/2024 12:00 AM EDT) Extra Tube Hold for add-ons. 10/08/2024 1:01 PM EDT [facility] Comment:Auto resulted. Urine Urinary bladder structure / Unknown Non-blood Collection / Unknown 10/04/2024 10/05/2024 10:12 AM EDT us Reginald Carrasco MD LAB URINE ORDERABLES Final Resul t [facility] [address] [place] [address], documented in this encounter Visit Diagnoses Diagnosis Altered mental status, unspecified documented in this encounter Care Teams Shrimp Trawler Captain Relationship Specialty Start Date End Date Reginald Carrasco MD [address] [place] [address] [address] [place], [phone] PCP - General Family Medicine 03/12/24 documented as of this encounter
--- OUTSIDE RECORDS SUMMARY | 2025-01-29 11:29 | XMS_ITS | Encounter Summary ---
Author Organization [facility] Address [address] [place] [address] Care Team Providers Care Vp Rheumatology Name Role Phone Reginald Carrasco MD Primary Care Provider [phone] Encounter Details Date Type Department Care Team (Late st Contact Info) Description 12/27/2024 Lab Requisition [facility] - Main Lab [address] [place] [address] Reginald Carrasco MD 38 [facility] [address] [place], [address] Type 2 diabetes mellitus without complications (CMS/HCC V24, CMS/HCC V28) Social History Tobacco Use Types Packs/Day Years [...] Procedure Name Priority Date/Time Associated Diagnosis Comments COMPLETE BLOOD COUNT Routine 12/28/2024 6:30 AM EDT Type 2 diabetes mellitus without complications (CMS/HCC V24, CMS/HCC V28) BASIC METABOLIC PANEL Routine 12/28/2024 6:30 AM EDT Type 2 diabetes mellitus without complications (CMS/HCC V24, CMS/HCC V28) documented in this encounter Results * (ABNORMAL) Basic metabolic panel (12/28/2024 6:30 AM EDT) Sodium 136 133 - 145 mmol/L LAB CHEMISTRY METHOD 12/28/2024 11:34 AM EDT [facility] Potassium 4.4 3.5 - 5.5 mmol/L LAB CHEMISTRY METHOD 12/28/2024 11:34 AM [facility] Chloride 104 96 - 110 mmol/L LAB CHEMISTRY METHOD 12/28/2024 11:34 AM [facility] CO2 23 21 - 32 mmol/L LAB CHEMISTRY METHOD 12/28/2024 11:34 AM [facility] Anion Gap 9 3 - 11 LAB CHEMISTRY METHOD 12/28/2024 11:34 AM [facility] Glucose 89 70 - 100 mg/dL LAB CHEMISTRY METHOD 12/28/2024 11:34 AM [facility] BUN 26(H) 5 - 25 mg/dL LAB CHEMISTRY METHOD 12/28/2024 11:34 AM [facility] Creatinine 0.96 0.50 - 1.10 mg/dL LAB CHEMISTRY METHOD 12/28/2024 11:34 AM [facility] eGFR 61 >=60 mL/min/1. 73m2 LAB CHEMISTRY METHOD 12/28/2024 11:34 AM [facility] Comment:Calculation based on the Chronic Kidney Disease Epidemiology Collaboration (CKD-EPI) equation refit without adjustment for race. BUN/Creatinine Ratio 27.1 LAB CHEMISTRY METHOD 12/28/2024 11:34 AM [facility] Calcium 8.1(L) 8.5 - 10.5 mg/dL LAB CHEMISTRY METHOD 12/28/2024 11:34 AM [facility] Blood Venous blood specimen / Unknown Venipuncture / Unknown 12/28/2024 6:30 AM EDT 12/28/2024 10:40 AM EDT us Reginald Carrasco MD LAB BLOOD ORDERABLES Final Resul t [facility] [address] [place] [address], [place] [phone] * Complete blood count (12/28/2024 6:30 AM EDT) [facility] WBC 8.2 4.8 - 10.8 K/mcL LAB HEMETOLOGY METHOD 12/28/2024 10:56 AM [facility] RBC 3.90 3.80 - 4.80 M/mcL LAB HEMETOLOGY METHOD 12/28/2024 10:56 AM [facility] Hemoglobin 11.7 11.5 - 16.0 g/dL LAB HEMETOLOGY METHOD 12/28/2024 10:56 AM [facility] Hematocrit 36.1 35.0 - 47.0 % LAB HEMETOLOGY METHOD 12/28/2024 10:56 AM [facility] MCV 91.9 79.0 - 98.0 FL LAB HEMETOLOGY METHOD 12/28/2024 10:56 AM [facility] MCH 29.8 27.0 - 32.0 pcg LAB HEMETOLOGY METHOD 12/28/2024 10:56 AM [facility] MCHC 32.4 32.0 - 37.0 g/dL LAB HEMETOLOGY METHOD 12/28/2024 10:56 AM [facility] RDW 12.7 11.0 - 15.0 % LAB HEMETOLOGY METHOD 12/28/2024 10:56 AM [facility] Platelets 239 130 - 400 K/mcL LAB HEMETOLOGY METHOD 12/28/2024 10:56 AM [facility] MPV 9.3 7.0 - 11.0 FL LAB HEMETOLOGY METHOD 12/28/2024 10:56 AM [facility] NRBC 0.0 <1.0 % LAB HEMETOLOGY METHOD 12/28/2024 10:56 AM [facility] NRBC Absolute 0.00 <0.10 K/mcL LAB HEMETOLOGY METHOD 12/28/2024 10:56 AM EDT [facility] Blood Venous blood specimen / Unknown Venipuncture / Unknown 12/28/2024 6:30 AM EDT 12/28/2024 10:40 AM EDT us Reginald Carrasco MD LAB BLOOD ORDERABLES Final Resul t [facility] [address] [place] [address], [place] [phone] documented in this encounter Visit Diagnoses Diagnosis Type 2 diabetes mellitus without complications (CMS/HCC V24, CMS/HCC V28) documented in this encounter Care Teams Vp Rheumatology Relationship Specialty Start Date End Date Reginald Carrasco MD [address] [place] [address], [phone] PCP - General Family Medicine 03/12/24 documented as of this encounter
--- OUTSIDE RECORDS SUMMARY | 2025-01-29 11:29 | XMS_ITS | Encounter Summary ---
Author Organization [facility] Address [address] [place] [address] Care Team Providers Care Receiver Bulk System Name Role Phone Reginald Carrasco MD Primary Care Provider [phone] Encounter Details Date Type Department Care Team (Late st Contact Info) Description 09/20/2024 Lab Requisition [facility] - Main Lab [address] [facility] [address] Reginald Carrasco MD 38 [facility] [address] [place], [address] Dementia in other diseases classified elsewhere, unspecified severity, without behavioral disturbance, psychotic disturbance, mood disturbance, and anxiety (CMS/HCC V24, CMS/HCC V28) Social History Tobacco [...] Associated Diagnosis Comments URINALYSIS WITH REFLEX MICROSCOPIC Routine 09/19/2024 1:30 PM EDT Dementia in other diseases classified elsewhere, unspecified severity, without behavioral disturbance, psychotic disturbance, mood disturbance, and anxiety (CMS/HCC V24, CMS/HCC V28) URINALYSIS WITH REFLEX MICROSCOPIC Routine 09/19/2024 1:30 PM EDT Dementia in other diseases classified elsewhere, unspecified severity, without behavioral disturbance, psychotic disturbance, mood disturbance, and anxiety (CMS/HCC V24, CMS/HCC V28) CULTURE URINE Routine 09/19/2024 1:30 PM EDT Dementia in other diseases classified elsewhere, unspecified severity, without behavioral disturbance, psychotic disturbance, mood disturbance, and anxiety ([facility] V24, [facility] V28) documented in this encounter Results * (ABNORMAL) Urinalysis with reflex microscopic (09/19/2024 1:30 PM EDT) Specific [place] Urine 1.013 1.003 - 1.030 LAB URINALYSIS - AUTOMATED METHOD 09/20/2024 2:40 PM [facility] pH, Urine 6.5 5.0 - 8.0 pH LAB URINALYSIS - AUTOMATED METHOD 09/20/2024 2:40 PM [facility] Leukocytes, Urine Small(A) Negative LAB URINALYSIS - AUTOMATED METHOD 09/20/2024 2:40 PM [facility] Nitrite, Urine Negative Negative LAB URINALYSIS - AUTOMATED METHOD 09/20/2024 2:40 PM [facility] Protein, Urine Negative <=Trace mg/dL LAB URINALYSIS - AUTOMATED METHOD 09/20/2024 2:40 PM [facility] Glucose, Urine Negative Negative mg/dL LAB URINALYSIS - AUTOMATED METHOD 09/20/2024 2:40 PM [facility] Ketones, Urine Negative Negative mg/dL LAB URINALYSIS - AUTOMATED METHOD 09/20/2024 2:40 PM [facility] Urobilinogen, Urine 0.2 0.2 - 1.0 mg/dL LAB URINALYSIS - AUTOMATED METHOD 09/20/2024 2:40 PM [facility] Bilirubin, Urine Negative Negative LAB URINALYSIS - AUTOMATED METHOD 09/20/2024 2:40 PM [facility] Blood, Urine Negative Negative LAB URINALYSIS - AUTOMATED METHOD 09/20/2024 2:40 PM [facility] RBC, Urine 2.8 0 - 4 /HPF LAB URINALYSIS - AUTOMATED METHOD 09/20/2024 2:40 PM EDT [facility] WBC, Urine 1.4 0 - 4 /HPF LAB URINALYSIS - AUTOMATED METHOD 09/20/2024 2:40 PM EDT [facility] Squamous Epithelial, Urine 19 0 - 60 /LPF LAB URINALYSIS - AUTOMATED METHOD 09/20/2024 2:40 PM EDT [facility] Bacteria, Urine Negative Negative /HPF LAB URINALYSIS - AUTOMATED METHOD 09/20/2024 2:40 PM EDT [facility] Hyaline Casts, Urine 0.0 0 - 3 /LPF LAB URINALYSIS - AUTOMATED METHOD 09/20/2024 2:40 PM EDT [facility] Urine Urine specimen obtained by clean catch procedure / Unknown 09/19/2024 1:30 PM EDT 09/20/2024 1:05 PM EDT Reginald Carrasco MD LAB URINE ORDERABLES Final Resul t [facility] [address] [place] [address], [place] [phone] * Culture urine (09/19/2024 1:30 PM EDT) Culture, Urine 10,000-49,000 CFU/mL Mixed urogenital tammy, no uropathogens present. Suggest repeat specimen if clinically indicated. 09/22/2024 12:02 PM EDT [facility] Urine Urine specimen obtained by clean catch procedure / Unknown 09/19/2024 1:30 PM EDT 09/20/2024 1:05 PM EDT Reginald Carrasco MD LAB MICROBIOLOGY - GENERAL ORDER SHAR Final Result Performing Organization Address City/[facility]/ZIP Co de Phone Number [facility] [address] [place] [address], [place] [phone] documented in this encounter Visit Diagnoses Diagnosis Dementia in other diseases classified elsewhere, unspecified severity, without behavioral disturbance, psychotic disturbance, mood disturbance, and anxiety (CMS/HCC V24, CMS/HCC V28) documented in this encounter Care Teams Receiver Bulk System Relationship Specialty Start Date End Date Reginald Carrasco MD [address] [place] [address], [phone] PCP - General Family Medicine 03/12/24 documented as of this encounter
--- OUTSIDE RECORDS SUMMARY | 2025-01-29 11:30 | XMS_ITS | Encounter Summary ---
Author Organization [facility] Address [address] [facility] [address] [place] [address] Phone Care Team Providers Care Siphon Operator Name Role Phone Yadi Neil Primary Care Provider [phone] Encounter Details Date Type Department Care Team (Latest Contact Info) Description 06/19/2019 Transcribe Orders Virtual Department [address] [place] [address] Terrance Barr MD [address] [place] [address] [email or web address] Thyrotoxicosis without thyroid storm, unspecified [...] documented as of this encounter Care Teams Siphon Operator Relationship Specialty Start Date End Date Yadi Neil PA [address] [place] [address] PCP - General Restaurant Recruiter 12/21/18 documented as of this encounter Additional Source Comments The information contained in this document represents components of the legal health record. It is not the complete legal health record.[facility]
--- OUTSIDE RECORDS SUMMARY | 2025-01-29 11:30 | XMS_ITS | Patient Health Record ---
Author Organization [facility] Address [address] [place] [address] Care Team Providers Care Cone Classifier Tender Name Role Phone Luna KHAN, Reginald Primary Care Provider UnavailDann Skelton Jr Unavailable Reason For Referral No Information Plan Of Treatment No Information Insurance Providers Payer Name Payer Address Payer Phone Subscriber Number Group Number Insured Name Patient Relationship to Insured Coverage Start Date Coverage End Date MEDICAID OF [facility] [address] [place] [address] [id number] GRISELDA COATES Self - patient is the insured MEDICARE OF [place] [address] [place] [id number] GRISELDA COATES Self - patient is the insured
--- OUTSIDE RECORDS SUMMARY | 2025-01-29 11:30 | XMS_ITS | Encounter Summary ---
Author Organization [facility] Address [address] [facility] [address] [place] [address] Phone Care Team Providers Care Broadcast Technician Name Role Phone Yadi Neil Primary Care Provider [phone]- [phone] Encounter Details Date Type Department Care Team (Late st Contact Info) Description 02/10/2020 Procedure Pass [facility], Ct Scan - [address] [address] Social History Tobacco Use Types Packs/Day Years [...] documented as of this encounter Care Teams Broadcast Technician Relationship Specialty Start Date End Date Yadi Neil PA [address] [place] [phone] PCP - General Machine I Cutter 12/21/18 documented as of this encounter Additional Source Comments The information contained in this document represents components of the legal health record. It is not the complete legal health record.[facility]
--- OUTSIDE RECORDS SUMMARY | 2025-01-29 11:30 | XMS_ITS | Encounter Summary ---
Author Organization [facility] Address [address] [facility] [address] [place] [address] Phone Care Team Providers Care Pipe Supervisor Name Role Phone Yadi Neil Primary Care Provider [phone]- [phone] Encounter Details Date Type Department Care Team (Late st Contact Info) Description 02/10/2020 Procedure Pass [facility], Ct Scan - [address] [address] Social History Tobacco Use Types Packs/Day Years [...] documented as of this encounter Care Teams Pipe Supervisor Relationship Specialty Start Date End Date Yadi Neil PA [address] [place] [phone] PCP - General Balance Wheel Hand Filer 12/21/18 documented as of this encounter Additional Source Comments The information contained in this document represents components of the legal health record. It is not the complete legal health record.[facility]
--- OUTSIDE RECORDS SUMMARY | 2025-01-29 11:30 | XMS_ITS | Encounter Summary ---
Author Organization [facility] Address [address] [facility] [address] [place] [address] Phone Care Team Providers Care Montessori Toddler Teacher Name Role Phone Roxy Mejia MD Primary Care Provider [phone] Yadi Neil Primary Care Provider [phone]- [phone] Encounter Details Date Type Department Care Team (Late st Contact Info) Description 12/13/2018 Ancillary Orders Virtual Department [address] [place] [address] Yadi Neil PA [address] [place] [phone] Social History Tobacco Use Types Packs/Day Years [...] documented as of this encounter Care Teams Montessori Toddler Teacher Relationship Specialty Start Date End Date Roxy Mejia MD [address] [place] [address] [email or web address] PCP - General Internal Medicine 08/15/17 12/20/18 Yadi Neil PA [address] [place] [phone] PCP - General Customs Patrol Officer 12/21/18 documented as of this encounter Additional Source Comments The information contained in this document represents components of the legal health record. It is not the complete legal health record.[facility]
--- OUTSIDE RECORDS SUMMARY | 2025-01-29 11:30 | XMS_ITS | Encounter Summary ---
Author Organization [facility] Address [address] [place] [address] [place] [address] Phone Care Team Providers Care Transit Mixer Driver Name Role Phone Yadi Neil Primary Care Provider [phone]- [phone] Encounter Details Date Type Department Care Team (Late st Contact Info) Description 02/11/2020 Procedure Pass [facility] [address] [place] [address] Social History Tobacco Use Types Packs/Day Years [...] documented as of this encounter Care Teams Transit Mixer Driver Relationship Specialty Start Date End Date Yadi Neil PA [address] [place] [phone] (work) PCP - General Surgery Nurse 12/21/18 documented as of this encounter Additional Source Comments The information contained in this document represents components of the legal health record. It is not the complete legal health record.[facility]
--- OUTSIDE RECORDS SUMMARY | 2025-01-29 11:30 | XMS_ITS | Encounter Summary ---
Author Organization [facility] Address [address] [facility] [address] [place] [address] Phone Care Team Providers Care Territory Representative Name Role Phone Yadi Neil Primary Care Provider [phone]- [phone] Encounter Details Date Type Department Care Team (Latest Contact Info) Description 02/15/2020 Transcribe Orders [facility] [address] [place] [address] Reginald Carrasco MD 38 [facility] 204, [address] [place] [address] [email or web address] Hyperlipidemia, unspecified hyperlipidemia type (Primary Dx); Hypertension, unspecified type; Diabetic complication Social History Tobacco Use Types Packs/Day Years [...] documented as of this encounter Results * CBC (02/15/2020 5:02 AM EDT) WBC 7.76 4.00 - 11.00 K/uL [facility] Comment:Note Reference Range updates to all CBC and Differential results. RBC 4.30 3.72 - 5.30 M/uL [facility] HGB 13.3 11.4 - 15.9 g/dL [facility] Comment:Note updated Referen ce Ranges for all CBC and Differential results. HCT 40.4 34.2 - 46.8 % [facility] PLT 203 140 - 430 K/uL [facility] MCV 94.0 78.0 - 97.0 fL [facility] MCH 30.9 25.0 - 33.0 pg [facility] MCHC 32.9 32.0 - 36.0 g/dL [facility] RDW 12.9 11.0 - 16.0 % [facility] MPV 9.5 8.4 - 12.8 fl [facility] NRBC 0.00 0 /100 WBCs [facility] ABSOLUTE NRBC 0.00 0 K/uL [facility] Blood 02/15/2020 5:02 AM EDT 02/15/2020 6:03 AM EDT us Reginald Carrasco MD LAB BLOOD ORDERABLES Final Resul t [facility] [address] [place], [place] [phone] * (ABNORMAL) Basic metabolic panel (02/15/2020 5:02 AM EDT) SODIUM 138 133 - 146 mmol/L [facility] CHLORIDE 101 96 - 108 mmol/L [facility] POTASSIUM 4.4 3.3 - 5.1 mmol/L [facility] CO2 22 21 - 35 mmol/L [facility] BUN 20(H) 6 - 19 mg/dL [facility] CREATININE 1.30 0.5 - 1.5 mg/dL [facility] GLUCOSE 83 70 - 99 mg/dL [facility] CALCIUM 8.3(L) 8.4 - 10.3 mg/dL [facility] EGFR 41(L) >59 mL/min/1.7 3m2 [facility] Comment:Estimated glomerular filtration rate calculated using the CKD-EPI equation. ANION GAP 19 10 - 20 mmol/L [facility] Blood 02/15/2020 5:02 AM EDT 02/15/2020 6:03 AM EDT us Reginald Carrasco MD LAB BLOOD ORDERABLES Final Resul t [facility] [address] [place] [address] documented in this encounter Visit Diagnoses Diagnosis Hyperlipidemia, unspecified hyperlipidemia type- Primary Hypertension, unspecified type Diabetic complication Type II or unspecified type diabetes mellitus with unspecified complication, not stated as uncontrolled documented in this encounter Additional Health Concerns Infection Onset Date Last Indicated Resolved Time CoV-Exposed Comment:SNF dc 03/04 full PPE for 14 days 03/05/2020 03/05/2020 03/19/2020 1:[address] CoV-Risk 05/12/2020 05/12/2020 05/22/2020 1:25 AM EST documented as of this encounter Care Teams Territory Representative Relationship Specialty Start Date End Date Yadi Neil PA [address] [place] [phone] PCP - General Technician Biological Health 12/21/18 documented as of this encounter Additional Source Comments The information contained in this document represents components of the legal health record. It is not the complete legal health record.[facility]
--- OUTSIDE RECORDS SUMMARY | 2025-01-29 11:30 | XMS_ITS | Encounter Summary ---
Author Organization [facility] Address [address] [facility] [address] [place] [address] Phone Care Team Providers Care Nitric Acid Plant Operator Name Role Phone Yadi Neil Primary Care Provider +1- [phone] Encounter Details Date Type Department Care Team (Late st Contact Info) Description 02/10/2020 Procedure Pass [facility], Ct Scan - [address] [address] Social History Tobacco Use Types Packs/Day Years [...] documented as of this encounter Care Teams Nitric Acid Plant Operator Relationship Specialty Start Date End Date Yadi Neil PA [address] [place] [phone] PCP - General Surveyor Oil Well Directional 12/21/18 documented as of this encounter Additional Source Comments The information contained in this document represents components of the legal health record. It is not the complete legal health record.[facility]
--- OUTSIDE RECORDS SUMMARY | 2025-01-29 11:30 | XMS_ITS | Encounter Summary ---
Author Organization [facility] Address [address] [facility] [address] [place] [address] Phone Care Team Providers Care Combat Control Manager Name Role Phone Roxy Mejia MD Primary Care Provider +1- [phone] Yadi Neil Primary Care Provider +1- [phone] Encounter Details Date Type Department Care Team (Late st Contact Info) Description 08/15/2017 Procedure Pass [facility], Ct Scan - [facility] [address] [place] [address] Social History Tobacco Use Types Packs/Day Years [...] documented as of this encounter Care Teams Combat Control Manager Relationship Specialty Start Date End Date Roxy Mejia MD [address] [place] [address] [email or web address] PCP - General Internal Medicine 08/15/17 12/20/18 Yadi Neil PA [address] [place] [phone] PCP - General Armhole Presser 12/21/18 documented as of this encounter Additional Source Comments The information contained in this document represents components of the legal health record. It is not the complete legal health record.[facility]
--- OUTSIDE RECORDS SUMMARY | 2025-01-29 11:30 | XMS_ITS | Encounter Summary ---
Author Organization [facility] Address [address] [facility] [address] [place] [address] Phone Care Team Providers Care Diesel Service Apprentice Name Role Phone Roxy Mejia MD Primary Care Provider +[phone]- [phone] Yadi Neil Primary Care Provider +1- [phone] Encounter Details Date Type Department Care Team (Latest Contact Info) Description 12/13/2018 Transcribe Orders Virtual Department [address] [place] [address] Yadi Neil PA [address] [place] [phone] Thyrotoxicosis without thyroid storm, unspecified thyrotoxicosis type (Primary Dx); Hyperthyroidism Social History Tobacco Use Types Packs/Day Years [...] without thyroid storm, unspecified thyrotoxicosis type- Primary Hyperthyroidism Thyrotoxicosis without mention of goiter or other cause, without mention of thyrotoxic crisis or storm documented in this encounter Additional Health Concerns Infection Onset Date Last Indicated Resolved Time CoV-Exposed Comment:SNF dc 03/04 full PPE for 14 days 03/05/2020 03/05/2020 03/19/2020 1:[address] CoV-Risk 05/12/2020 05/12/2020 05/22/2020 1:25 AM EST documented as of this encounter Care Teams Diesel Service Apprentice Relationship Specialty Start Date End Date Roxy Mjeia MD [address] [place] [address] [email or web address] PCP - General Internal Medicine 08/15/17 12/20/18 Yadi Neil PA [address] [place] [phone] PCP - General Tailoring Teacher 12/21/18 documented as of this encounter Additional Source Comments The information contained in this document represents components of the legal health record. It is not the complete legal health record.[facility]
[2025-01-29] MEDS: iohexoL 350 MG/ML 100 ML INFUS..BTL IV (12:21)
[2025-01-29 13:52] VITALS: BP 149/79; PULSE 103; RESP 20; TEMP 36.8; O2SAT 96
[2025-01-29 13:53] VITALS: BP 149/79; PULSE 104; RESP 19; TEMP 37; O2SAT 97
--- NOTE | 2025-01-29 14:06 | PC.NURSE ---
Pt tearful at times, reports pain but cannot identify where or severity.
[2025-01-29 14:50] VITALS: BP 149/79; PULSE 104; RESP 19; TEMP 37; O2SAT 97
--- NOTE | 2025-01-29 15:05 | PC.NURSE ---
Camila called, report given. EMS to give ride back to FACILITY
== END 2025-01-29 16:37 | disposition home or self-care (01) ==
PROVIDERS: Physician Assistant Medical; Emergency Provider Emergency Medicine; PCP Family Medicine
DX: R11.10 Vomiting, unspecified (principal); J44.9 Chronic obstructive pulmonary disease, unspecified; I10 Essential (primary) hypertension; E11.9 Type 2 diabetes mellitus without complications; F20.89 Other schizophrenia; F03.90 Unspecified dementia, unspecified severity, without behavioral disturbance, psychotic disturbance, mood disturbance, and anxiety; Z79.899 Other long term (current) drug therapy
CPT/HCPCS: 36415; 71045; 74177; 80053; 82272; 83735; 85025; 85610; 86140; 86850; 86900; 86901; 96361; 96374; 99284; 99285; J2470; Q9967

== ENCOUNTER → 2025-01-29 11:20 | Outpatient (BNV) | payer MEDICARE, MEDICAID, SELFPAY | PROVIDERS: Emergency Provider Emergency Medicine; PCP Family Medicine; Visit Provider Radiology Diagnostic Radiology | DX: R11.10 Vomiting, unspecified (principal) | CPT/HCPCS: 74177 ==